=== PATIENT | male | born 1970 | race Caucasian/White ===

== ENCOUNTER 2024-04-20 20:22 | Inpatient (IN) | payer MEDICARE, SELFPAY ==
[2024-04-20 20:23] VITALS: BP 151/83; PULSE 71; RESP 16; TEMP 36.4; O2SAT 96; BMI 27.3
--- NOTE | 2024-04-20 20:25 | EKG12_ITS ---
Test Reason : PALPITATIONS Blood Pressure : / mmHG Vent. Rate : 140 BPM Atrial Rate : 208 BPM P-R Int : 000 ms QRS Dur : 088 ms QT Int : 268 ms P-R-T Axes : 000 009 152 degrees QTc Int : 409 ms Critical Test Result: High HR Atrial fibrillation with aberrant conduction ST & T wave abnormality, consider lateral ischemia Abnormal ECG Confirmed by Shiva Agudelo ([id number]), photo editor DELANEY HOPSON ([id number]) on 04/24/2024 9:09:33 AM Referred By: Confirmed By:Shiva Agudelo
--- NOTE | 2024-04-20 20:40 | RAD_ITS ---
STUDY: X-RAY CHEST REASON FOR EXAM: Male, 54 years old. palpitations TECHNIQUE: PA COMPARISON: None. FINDINGS: The lungs are clear and expanded. There is no demonstrated pleural abnormality. Normal size heart. Normal mediastinum and ricardo. Normal visualized pulmonary arteries. Normal visualized aortic arch and descending thoracic aorta. Normal visualized thoracic spine. Normal visualized ribs, clavicles, and shoulders. There is no demonstrated abnormality of the visualized soft tissue structures of the upper abdomen. RAD/Chest 1 View (Portable) IMPRESSION: Normal x-ray examination of the chest. Electronically Signed: Hector Dorado MD at 21:28 EDT ,
[2024-04-20 20:45] LABS: Absolute Lymphocyte Count 1.57 X10^3/uL (0.83-4.51); Absolute Neutrophil Count 3.5 X10^3/uL (2.0-7.7); Basophil# 0.07 X10^3/uL; Basophil% 1.1 % (0-1); Eosinophil# 0.13 X10^3/uL; Hematocrit 41.8 % (40-54); Lymphocyte # 1.57 X10^3/ul (0.83-4.51); Lymphocyte % 24.3 % (19-41); Mean Corp Hgb Conc 35.9 g/dL (32-36); Mean Corpuscular Hgb 33.2 pg (27.0-32.0); Mean Corpuscular Volume 92.5 fL (80-94); Monocyte# 1.13 X10^3/uL; Monocyte% 17.5 % (0-10); NRBC Flagged by Analyzer 0 % (0-5); Neutrophil # 3.54 X10^3/uL (2.7-7.7); Neutrophil % 54.8 % (47-70); POSITIVE COUNT YES; Platelet Count 58 K/mm3 (150-450); RBC Distribution Width CV 16.4 % (11.6-14.6); RBC Distribution Width SD 54.7 fl (35.1-43.9); Red Blood Count 4.52 M/mm3 (4.6-6.2); White Blood Count 6.5 K/mm3 (4.4-11.0)
[2024-04-20 20:47] LABS: Differential Indicated SCAN CRITERIA MET
[2024-04-20 21:04] LABS: Alcohol, Blood (Medical)-Serum < 3.0 mg/dL
[2024-04-20 21:15] LABS: AST(SGOT) 276 U/L (15-37); Alanine Aminotransfer ALT/SGPT 127 U/L (16-61); Albumin, Serum 3.7 g/dL (3.2-5.0); Alkaline Phosphatase 197 U/L (45-117); Anion Gap 11 (5-15); BUN 18 mg/dL (7-18); Bilirubin, Direct 2.21 mg/dL (0.00-0.30); Calcium,Total 9.6 mg/dL (8.5-10.1); Chloride 89 mmol/L (98-107); Creatinine, Serum 1.38 mg/dL (0.70-1.30); EST Glomerular Filtration Rate 57 mL/min (>60); Est Glom Filt Rate - Afr Amer 69 mL/min (>60); Estimated Creatinine Clearance 67.17 ml/min; Globulin 3.2 g/dL (2.2-4.2); Glucose 92 mg/dL (74-106); Potassium 2.4 mmol/L (3.5-5.1); Protein, Total 6.9 g/dL (6.4-8.2); Sodium Level 133 mmol/L (136-145); Troponin-I HS (w/2H Reflex) 27 pg/mL (3.0-78.0)
[2024-04-20 21:22] LABS: Differential Comment SCANNED
[2024-04-20 21:23] VITALS: BP 114/88; PULSE 102; RESP 20; O2SAT 95
--- NOTE | 2024-04-20 21:27 | EX.ED.DYSGE1 ---
HPI History of Present Illness Chief Complaint: Palpitations Narrative Narrative: 54-year-old male presenting with palpitations. Patient recently moved from [place] to [place]. Has been here about a month. He states he is a drinker and drinks about 2-4 large mikes hard lemonade's a day. He has not had a drink in 3 days. Today he noted that he has having palpitations. He does have a history of A-fib. Patient denies chest pain. He denies nausea or vomiting. He does state he has a history of DVTs and is interested in the ramp program. [facility] Medical History Alcohol abuse Osteoporosis Cirrhosis Smoker Irregular heart beat Atrial fibrillation Home Medications ?Medication ?Instructions ?Recorded ?Last Taken ?Type alpha lipoic acid 600 mg capsule 600 mg PO BID 04/20/24 Unknown History amiodarone 200 mg tablet 200 mg PO BID 04/20/24 Unknown History aspirin 81 mg tablet,delayed 81 mg PO DAILY 04/20/24 Unknown History release (Ecotrin Low Strength) ferrous sulfate 325 mg (65 mg 325 mg PO BID 04/20/24 Unknown History iron) tablet (FeroSul) lactulose 10 gram/15 mL oral 30 ml PO TID 04/20/24 Unknown History solution metoprolol tartrate 25 mg tablet 25 mg PO Q12H 04/20/24 Unknown History potassium chloride .Route 04/20/24 Unknown History potassium chloride 20 mEq 10 meq PO DAILY 04/20/24 Unknown History tablet,extended release (K-Tab) Allergy/AdvReac Type Severity Reaction Status Date / Time No Known Allergies Allergy Verified 04/20/24 20:23 Surgical History History of radiofrequency ablation procedure for cardiac arrhythmia ROS ROS ED Constitutional Constitutional ED: Denies chills, fever(s) or sweats Eyes Eyes: Denies blurry vision or change in vision ENT ENT ED: Denies ear pain or sore throat Cardiovascular Cardiovascular: Reports palpitations and racing heartbeat; Denies chest pain Respiratory/Chest Respiratory/Chest: Denies cough, dyspnea or sputum Gastrointestinal Gastrointestinal: Denies abdominal pain, constipation, diarrhea, nausea or vomiting Genitourinary Genitourinary ED: Denies dysuria, hematuria or urinary frequency Musculoskeletal Musculoskeletal: Denies arthralgias, myalgias or neck pain Integumentary Denies abscess, Abrasions or rash Neurologic Neurologic: Denies headache(s), paresthesias or weakness Psychiatric Psychiatric: Denies anxiety, depression, suicidal ideation or suicidal thoughts Endocrine Endocrinology: Denies polydipsia or polyuria EXAM Physical Exam Const Vital Signs: 04/20/24 20:23 04/20/24 21:09 04/20/24 21:09 Temperature 97.5 F L Temperature Source Temporal Pulse Rate 71 Respiratory Rate 16 Respiratory Effort Normal Blood Pressure 151/83 H Blood Pressure Mean 105 Pulse Ox 96 Oxygen Delivery Method Room Air Oxygen Flow Rate (L/min) 97 Positive well nourished General Appearance ED: Negative for pallor HEENT Reports moist mucous membranes Negative for trauma or tenderness Eyes PERRL and EOMs intact bilaterally Chest Wall inspection of chest normal Resp normal respiratory effort and clear to auscultation bilaterally Auscultation: Negative for rales, rhonchi or wheezes Cardio Rate: tachycardic Rhythm: abnormal rhythm irregularly irregular GI normal to inspection, nondistended, normoactive bowel sounds Neuro oriented x3 and CN's II-XII intact bilaterally Psych mental status grossly normal Skin no rashes or lesions noted and no wounds General Skin Exam: Negative for jaundice or pallor MDM MDM MDM Narrative Medical decision making narrative: Patient presenting with palpitations. He states he is trying to quit drinking alcohol. Has a history of DTs. He does want to detox in the hospital. He has had no alcohol in 3 days. History of cirrhosis. He also has a history of A-fib. Differential includes A-fib, a flutter, ACS, dehydration, anemia, electrolyte abnormalities, alcohol intoxication, alcohol withdrawal. Insert chest pain lab Lab Data Labs: Laboratory Results - last 24 hr 04/20/24 20:35 WBC 6.5 RBC 4.52 L Hgb 15.0 Hct 41.8 MCV 92.5 MCH 33.2 H MCHC 35.9 RDW Std Deviation 54.7 H RDW Coeff of Asher 16.4 H Plt Count 58 L MPV 11.0 Immature Gran % (Auto) 0.300 Neut % (Auto) 54.8 Lymph % (Auto) 24.3 [place] % (Auto) 17.5 H Eos % (Auto) 2.0 Baso % (Auto) 1.1 H Absolute Neuts (auto) 3.5 Absolute Lymphs (auto) 1.57 Nucleated RBC % 0 Differential Comment SCANNED Sodium 133 L Potassium 2.4 L* Chloride 89 L Carbon Dioxide 33.0 H Anion Gap 11 BUN 18 Creatinine 1.38 H Estim Creat Clear Calc 67.17 Est GFR (MDRD) Af Amer 69 Est GFR (MDRD) Non-Af 57 L BUN/Creatinine Ratio 13.0 Glucose 92 Calcium 9.6 Total Bilirubin 4.50 H Direct Bilirubin 2.21 H AST 276 H ALT 127 H Alkaline Phosphatase 197 H Troponin I High Sens 27 Total Protein 6.9 Albumin 3.7 Globulin 3.2 Ethyl Alcohol < 3.0 Discharge Plan Triage Chief Complaint: Palpitations ED Provider: Joaquín Faust Dx/Rx/DC Orders Prescriptions: No Action metoprolol tartrate 25 mg tablet 25 mg PO Q12H amiodarone 200 mg tablet 200 mg PO BID ferrous sulfate [FeroSul] 325 mg (65 mg iron) tablet 325 mg PO BID aspirin [Ecotrin Low Strength] 81 mg tablet,delayed release (DR/EC) 81 mg PO DAILY alpha lipoic acid 600 mg capsule 600 mg PO BID lactulose 10 gram/15 mL solution 30 ml PO TID potassium chloride .Route potassium chloride [K-Tab] 20 mEq tablet extended release 10 meq PO DAILY Primary Care Provider: NOT,DEFINED Referrals: NOT,DEFINED [Primary Care Provider] - Print Language: Icelandic
[2024-04-20] MEDS: dilTIAZem 25 MG/5 ML Vial 20 MG IV BOLUS (21:50)
[2024-04-20] MEDS: 0.9% Normal Saline (1000mL) 1,000 ML 999 ML IV (21:51)
[2024-04-20 21:54] LABS: Lipase 38 U/L (13-75); Magnesium 1.7 mg/dL (1.6-2.6)
[2024-04-20 22:00] VITALS: BP 113/79; PULSE 94; RESP 20; O2SAT 97
[2024-04-20 22:35] VITALS: BP 130/89; PULSE 103; RESP 24; TEMP 36.8; O2SAT 96
--- NOTE | 2024-04-20 22:36 | PCM.HP.STD ---
HPI - General General Date of Admission: 04/21/24 Date of Service: 04/20/24 Chief Complaint: Palpitations and Wanting EtOH Detox. HPI Narrative LUIS PATEL, is a 54 M with a past medical history of tobacco abuse, Chronic EtOH Abuse with patient drinking 2-4 large [employer] Hard Lemonade's daily; with subsequent cirrhosis, overweight; with BMI of 27.3 this admission, history of atrial fibrillation; with previous radiofrequency ablation x 3 on Amiodarone with Metoprolol, history of DVT's and osteoporosis who presents to [facility] ER complaining of palpitations and wanting help with EtOH Detox. Mr. Patel reports his symptoms began approximately 3 days prior to admission after his last alcoholic beverage with intermittent palpitations. He further explains he moved here recently from [place] to [place] about a month ago, apparently to be near his sister who lives in the area and now he would like help with alcohol detoxification since he was unable to wean himself down off of alcohol without professional help. He admits to tremors and hallucinations but he denies associated fever, chills, chest pain, nausea, vomiting, diaphoresis, diarrhea, recent antibiotics or constipation. He is interested in the RAMP program. In the ER he was noted to have electrocardiographic evidence of atrial flutter with rapid ventricular response of 140 to 150 bpm complicated by laboratory evidence of severe hypokalemia of 2.4 mmol/L present on admission compounded by alcohol withdrawal in the setting of chronic alcohol abuse; with subsequent cirrhosis and hyperbilirubinemia of 4.5 mg/dL (with direct bilirubin of 2.21 mg/dL) present on admission with elevated LFTs and he was then admitted to the PCU for ongoing care for stay that is expected to extend beyond 2 midnights. [facility] Medical History Alcohol abuse Osteoporosis Cirrhosis Smoker Irregular heart beat Atrial fibrillation Home Medications ?Medication ?Instructions ?Recorded ?Last Taken ?Type alpha lipoic acid 600 mg capsule 600 mg PO BID 04/20/24 Unknown History amiodarone 200 mg tablet 200 mg PO BID 04/20/24 Unknown History aspirin 81 mg tablet,delayed 81 mg PO DAILY 04/20/24 Unknown History release (Ecotrin Low Strength) ferrous sulfate 325 mg (65 mg 325 mg PO BID 04/20/24 Unknown History iron) tablet (FeroSul) lactulose 10 gram/15 mL oral 30 ml PO TID 04/20/24 Unknown History solution metoprolol tartrate 25 mg tablet 25 mg PO Q12H 04/20/24 Unknown History potassium chloride .Route 04/20/24 Unknown History potassium chloride 20 mEq 10 meq PO DAILY 04/20/24 Unknown History tablet,extended release (K-Tab) Allergy/AdvReac Type Severity Reaction Status Date / Time bee venom protein (honey Allergy Intermediate Swelling Verified 04/20/24 22:25 bee) (bee stings) Surgical History History of radiofrequency ablation procedure for cardiac arrhythmia Social History Smoking Status: Current every day smoker tobacco type: cigarettes ROS ROS Narrative Review of systems: General: Patient admits to fatigue and malaise but denies fever or chills. HENT: Denies headache, denies stuffy nose, denies sore throat EYES: Denies changes in vision or discharge from eyes. Resp: Denies cough, denies shortness of breath Cardiac: Patient admits to palpitations and heart racing but denies chest pain. GI: Denies abdominal pain, denies changes in bowel, denies nausea or vomiting. : Denies changes in urination Extremity: Denies swelling Musculoskeletal: Feels somewhat generally weak and unwell but denies arthralgias or myalgias. Neuro: Patient denies headache, paresthesias or focal neurologic weakness. Heme: Denies any bleeding or bruising Skin: Denies rashes Psychiatric: Patient admits to some hallucinations stating that the clock is moving [id number] on the wall. He denies suicidal or homicidal ideation. Endocrine: No polyuria, polydipsia or polyphagia. The rest of the 14 point ROS was negative except for positives in HPI. Vital Signs Vital Signs Vital Signs: 04/20/24 20:23 04/20/24 21:09 04/20/24 21:09 Temperature 97.5 F L Temperature Source Temporal Pulse Rate 71 Respiratory Rate 16 Respiratory Effort Normal Blood Pressure 151/83 H Blood Pressure Mean 105 Pulse Ox 96 Oxygen Delivery Method Room Air Oxygen Flow Rate (L/min) 97 04/20/24 21:23 04/20/24 22:00 Temperature Temperature Source Pulse Rate 102 H 94 Respiratory Rate 20 H 20 H Respiratory Effort Blood Pressure 114/88 H 113/79 Blood Pressure Mean 96 90 Pulse Ox 95 97 Oxygen Delivery Method Room Air Room Air Oxygen Flow Rate (L/min) Weight Weight: 201 lb 6.4 oz Body Mass Index (BMI) 27.3 Physical Exam Const alert, oriented x3 and average body habitus Constitutional Narrative: [id number] distress noted with tremor in upper extremities and claims of seeing the clock move [id number] on the wall consistent with hallucinations. General Appearance: cooperative HEENT normocephalic, head/scalp atraumatic and hearing grossly normal bilaterally HEENT Narrative: Mucous membranes dry. Eyes PERRL and EOMs intact bilaterally Neck no lymphadenopathy and supple Resp normal respiratory effort, no retractions, no use of accessory muscles and clear to auscultation bilaterally Cardio Cardio Narrative: Irregularly irregular at approximately 100 to 110 bpm. GI normal to inspection, nondistended, normoactive bowel sounds, soft to palpation, non-tender and non-distended Extremity normal to inspection and full ROM Skin Skin Narrative: Patient has no evidence of jaundice, rash or abscess. Neuro oriented x3, CN's II-XII intact bilaterally, moves all extremities and no focal motor deficits Sensorium / Orientation: awake, alert, oriented to person, oriented to place and oriented to time Speech: speech normal Psych Mood & Affect: anxious Results Medical Records Data Attestation: I reviewed the patient's medical records Lab / Micro Data Attestation: I reviewed the patient's lab results. 04/20/24 20:35 04/20/24 20:35 Labs: Laboratory Results - last 24 hr 04/20/24 20:35: WBC 6.5, RBC 4.52 L, Hgb 15.0, Hct 41.8, MCV 92.5, MCH 33.2 H, MCHC 35.9, RDW Std Deviation 54.7 H, RDW Coeff of Asher 16.4 H, Plt Count 58 L, MPV 11.0, Immature Gran % (Auto) 0.300, Neut % (Auto) 54.8, Lymph % (Auto) 24.3, Rich % (Auto) 17.5 H, Eos % (Auto) 2.0, Baso % (Auto) 1.1 H, Absolute Neuts (auto) 3.5, Absolute Lymphs (auto) 1.57, Nucleated RBC % 0, Differential Comment SCANNED, Sodium 133 L, Potassium 2.4 L*, Chloride 89 L, Carbon Dioxide 33.0 H, Anion Gap 11, BUN 18, Creatinine 1.38 H, Estim Creat Clear Calc 67.17, Est GFR (MDRD) Af Amer 69, Est GFR (MDRD) Non-Af 57 L, BUN/Creatinine Ratio 13.0, Glucose 92, Calcium 9.6, Total Bilirubin 4.50 H, Direct Bilirubin 2.21 H, AST 276 H, ALT 127 H, Alkaline Phosphatase 197 H, Troponin I High Sens 27, Total Protein 6.9, Albumin 3.7, Globulin 3.2, Ethyl Alcohol < 3.0 04/20/24 21:26: Magnesium 1.7, Lipase 38 Imaging [facility] Imaging Services [address] [place] [address] Abdomen/Pelvis W IV Cont ONLY MR#: [id number] Acct: [id number] Name: LUIS PATEL Rep #: [id number] : 1970 M 54 From: Luis Bryant MD PCP: Care Physician,No Primary Status: ADM IN Study: Abdomen/Pelvis W IV Cont ONLY Date of Exam: 04/20/24 Exam# [id number] Ordering Dr: Joaquín Faust DO INDICATION: transamintis EXAMINATION: CT ABDOMEN AND PELVIS with CONTRAST - CT Abdomen And Pelvis W/ Contrast Injection TECHNIQUE: Multiple axial images were obtained of the abdomen and pelvis following administration of IV contrast. Planar reconstructions obtained. A radiation dose optimization technique was used for this scan. RADIATION DOSAGE (If Supplied By Facility): CTDIvol = ( 15.83 ) mGy, DLP = ( 110.81 ) mGycm IV Contrast dosage and agent: None. Oral contrast: None. COMPARISON: No pertinent previous studies for comparison.. FINDINGS: LOWER THORAX: Lungs are clear. Minimal atelectasis at lung bases. No consolidation, no effusion. Cardiac contour is normal. No pericardial effusion. No coronary vascular calcifications.. HEPATOBILIARY: Liver: Liver has a lobulated contour there is diffuse hepatic steatosis. No hepatic masses. There is a recanalization of the umbilical vein which is prominent consistent with sequelae of portal venous hypertension and portosystemic shunting, with anastomosis with the RIGHT inferior epigastric vein... Gallbladder: Gallbladder is mildly distended, calcifications are present. No ductal dilatation. Pancreas: Pancreas is normal size configuration and density. No mass is noted. Spleen: The spleen is homogeneous and normal in size. . BOWEL: Stomach: The stomach is normal in size configuration, no evidence of focal masses, abnormal calcifications. No hiatal hernia noted. Bowel: Small and large have normal configuration, no masses or bowel obstruction noted. Moderate amount retained stool within the colon. No evidence of diverticulitis. Appendix: The visualized appendix has normal appearance.: GENITOURINARY: Adrenals: Both adrenal glands are normal in size. Kidneys: Kidneys appear symmetric in size. No calcifications are seen in the collecting system. There is no hydronephrosis or surrounding fluid. Bladder: Normal Pelvic organs: The visualized pelvic organs are normal in size and configuration. No masses or adenopathy noted. RETROPERITONEUM: There is normal appearance of the abdominal aorta and inferior vena cava. LYMPH NODES: No evidence of retroperitoneal or para-aortic masses fluid collections or adenopathy. PERITONEAL CAVITY: No ascites noted ANTERIOR ABDOMINAL WALL: Normal, no hernia identified. BONES AND SOFT TISSUES: The skeleton shows no evidence for fractures or destructive lesions. OTHER: None CT/Abdomen/Pelvis W IV Cont ONLY IMPRESSION: 1. Cirrhotic appearance of the liver, diffuse hepatic steatosis, and evidence of portal venous hypertension and portosystemic shunting via the umbilical vein and the inferior epigastric vein on the RIGHT. 2. No evidence of hepatic masses or ductal dilatation. 3. Cholelithiasis. 4. Moderate amount retained stool in the colon, no evidence of masses bowel obstruction. No evidence diverticulitis or appendicitis. 5. No evidence of renal calcification or obstructive uropathy.. Electronically Signed: Luis Bryant MD at 23:58 EDT , CC: Dr. Joaquín Faust, ; No Primary Care Physician ~ Steward/Stewardess Third Class: Signed [facility] Imaging Services [address] [place] [address] [id number] Chest 1 View (Portable) MR#: [id number] Acct: [id number] Name: LUIS PATEL Rep #: [id number] : 1970 M 54 From: Hector Dorado MD PCP: Care Physician,No Primary Status: ADM IN Study: Chest 1 View (Portable) Date of Exam: 04/20/24 Exam# [id number] Ordering Dr: Joaquín Faust DO STUDY: X-RAY CHEST REASON FOR EXAM: Male, 54 years old. palpitations TECHNIQUE: PA COMPARISON: None. FINDINGS: The lungs are clear and expanded. There is no demonstrated pleural abnormality. Normal size heart. Normal mediastinum and ricardo. Normal visualized pulmonary arteries. Normal visualized aortic arch and descending thoracic aorta. Normal visualized thoracic spine. Normal visualized ribs, clavicles, and shoulders. There is no demonstrated abnormality of the visualized soft tissue structures of the upper abdomen. RAD/Chest 1 View (Portable) IMPRESSION: Normal x-ray examination of the chest. Electronically Signed: Hector Dorado MD at 21:28 EDT Reading Location ID and State: [address] [place] [address] Tel , Service support , CC: Dr. Joaquín Faust, DO; No Primary Care Physician ~ Steward/Stewardess Third Class: Signed Assessment & Plan Assessment/Plan (1) Alcohol withdrawal: QUALIFIERS: Complication of substance-induced condition: with perceptual disturbance Qualified Code(s): F10.932 - Alcohol use, unspecified with withdrawal with perceptual disturbance (2) Chronic alcohol abuse: (3) Paroxysmal atrial flutter: (4) Hypokalemia: (5) Alcoholic cirrhosis: QUALIFIERS: Ascites presence: without ascites Qualified Code(s): K70.30 - Alcoholic cirrhosis of liver without ascites (6) Overweight (BMI 25.0-29.9): (7) History of deep vein thrombosis: PLAN: Plan 1. Impending EtOH Withdrawal in the setting of Chronic EtOH Abuse with known cirrhosis - Admit to ICU for treatment under the EtOH Detoxification protocol primarily consisting of Phenobarbital taper. EtOH Cessation will be strongly encouraged. Check CT scan of the abdomen and pelvis with Hyperbilirubinemia of 4.5 mg/dL and elevated LFT's present on admission. Check PT/INR to evaluate liver synthetic function of clotting factors. Finally, we will consult Dr. Patrick of gastroenterology to see this patient on-rounds in the AM for further recommendations regarding optimizing his care with help appreciated in advance. 2. Severe Hypokalemia of 2.4 mmol/L present on admission complicating #1 - Give supplemental KCl and then recheck level in the AM to ensure improvement. 3. History of PAF; s/p radiofrequency ablation x 3 (and not on anticoagulation) with EKG positive for Atrial Flutter with RVR @ ~140-150 bpm POA compounding #1 & #2 - Continue Amiodarone and Metoprolol as previous. Continue IV Diltiazem to keep HR < 100 bpm. Check TSH. 4. Tobacco abuse compounding adding to the pathology of #1 - #3 - Tobacco cessation will be strongly encouraged with Nicotine patch offered to control cravings. 5. Overweight; with BMI of 27.3 this admission - Weight loss will be recommended. 6. Osteoporosis - Stable. 7. History of DVT's - Noted, with patient started on full dose Lovenox for #4. 8. DVT prophylaxis - Give full-dose Lovenox for #4. Total time: Approximately 75 minutes. Charges/Coding Visit Charges Inpatient E&M: 97226 Init Hosp L3
[2024-04-20 22:40] LABS: Reflex Troponin-HS? (from REC) Y
--- NOTE | 2024-04-20 22:40 | CT_ITS ---
INDICATION: transamintis EXAMINATION: CT ABDOMEN AND PELVIS with CONTRAST - CT Abdomen And Pelvis W/ Contrast Injection TECHNIQUE: Multiple axial images were obtained of the abdomen and pelvis following administration of IV contrast. Planar reconstructions obtained. A radiation dose optimization technique was used for this scan. RADIATION DOSAGE (If Supplied By Facility): CTDIvol = ( 15.83 ) mGy, DLP = ( 110.81 ) mGycm IV Contrast dosage and agent: None. Oral contrast: None. COMPARISON: No pertinent previous studies for comparison.. FINDINGS: LOWER THORAX: Lungs are clear. Minimal atelectasis at lung bases. No consolidation, no effusion. Cardiac contour is normal. No pericardial effusion. No coronary vascular calcifications.. HEPATOBILIARY: Liver: Liver has a lobulated contour there is diffuse hepatic steatosis. No hepatic masses. There is a recanalization of the umbilical vein which is prominent consistent with sequelae of portal venous hypertension and portosystemic shunting, with anastomosis with the RIGHT inferior epigastric vein... Gallbladder: Gallbladder is mildly distended, calcifications are present. No ductal dilatation. Pancreas: Pancreas is normal size configuration and density. No mass is noted. Spleen: The spleen is homogeneous and normal in size. . BOWEL: Stomach: The stomach is normal in size configuration, no evidence of focal masses, abnormal calcifications. No hiatal hernia noted. Bowel: Small and large have normal configuration, no masses or bowel obstruction noted. Moderate amount retained stool within the colon. No evidence of diverticulitis. Appendix: The visualized appendix has normal appearance.: GENITOURINARY: Adrenals: Both adrenal glands are normal in size. Kidneys: Kidneys appear symmetric in size. No calcifications are seen in the collecting system. There is no hydronephrosis or surrounding fluid. Bladder: Normal Pelvic organs: The visualized pelvic organs are normal in size and configuration. No masses or adenopathy noted. RETROPERITONEUM: There is normal appearance of the abdominal aorta and inferior vena cava. LYMPH NODES: No evidence of retroperitoneal or para-aortic masses fluid collections or adenopathy. PERITONEAL CAVITY: No ascites noted ANTERIOR ABDOMINAL WALL: Normal, no hernia identified. BONES AND SOFT TISSUES: The skeleton shows no evidence for fractures or destructive lesions. OTHER: None CT/Abdomen/Pelvis W IV Cont ONLY IMPRESSION: 1. Cirrhotic appearance of the liver, diffuse hepatic steatosis, and evidence of portal venous hypertension and portosystemic shunting via the umbilical vein and the inferior epigastric vein on the RIGHT. 2. No evidence of hepatic masses or ductal dilatation. 3. Cholelithiasis. 4. Moderate amount retained stool in the colon, no evidence of masses bowel obstruction. No evidence diverticulitis or appendicitis. 5. No evidence of renal calcification or obstructive uropathy.. Electronically Signed: Chema Bryant MD at 23:58 EDT ,
[2024-04-20 23:00] VITALS: BP 131/88; PULSE 103; RESP 21; TEMP 36.9; O2SAT 99
[2024-04-20] MEDS: Potassium Chloride Oral Tablet 20 MEQ 60 MEQ PO (23:09)
[2024-04-20] MEDS: LORazepam 2 MG/ML Syringe IV (23:12)
[2024-04-20] MEDS: Potassium Chloride 10mEq/100mL 10 MEQ/100 ML IV.SOLN. 100 MEQ IV BOLUS (23:13)
[2024-04-20 23:14] LABS: International Normalized Ratio 1.4; Prothrombin Time (Protime)PT. 17.1 SECONDS (11.7-14.9)
[2024-04-20 23:25] LABS: Phosphorus 4.3 mg/dL (2.5-4.9)
[2024-04-20] MEDS: Phenobarbital 32.4 MG Tablet 97.2 MG PO (23:38)
[2024-04-21] VITALS (30 sets, daily range): BP systolic 96–143; BP diastolic 51–114; PULSE 77–107; RESP 12–26; TEMP 36.1–36.9; O2SAT 93–100; BMI 28.9
[2024-04-21 00:12] LABS: Magnesium 1.5 mg/dL (1.6-2.6); Troponin-I HS 24 pg/mL (3.0-78.0)
[2024-04-21] MEDS: Potassium Chloride 10mEq/100mL 10 MEQ/100 ML IV.SOLN. 100 MEQ IV BOLUS ×3 (00:37→02:41)
[2024-04-21] MEDS: Metoprolol Tartrate 25 MG Tablet PO ×3 (01:43→21:18)
[2024-04-21] MEDS: Amiodarone 200 MG Tablet PO ×3 (01:44→21:19)
[2024-04-21] MEDS: Gabapentin 300 MG Capsule PO (01:44)
[2024-04-21] MEDS: traZODone 100 MG Tablet PO (01:45)
[2024-04-21] MEDS: Phenobarbital 32.4 MG Tablet 97.2 MG PO (03:39)
[2024-04-21] MEDS: dexMEDEtomidine 400 MCG in 0.9% Normal Saline (100mL Bag) 96 ML 12.1 MCG CONT INF (04:32)
[2024-04-21] MEDS: Magnesium Sulfate 2 GM in Dextrose 5%-Water (100mL Bag) 100 ML IV (05:46)
[2024-04-21 06:06] LABS: Absolute Lymphocyte Count 0.73 X10^3/uL (0.83-4.51); Absolute Neutrophil Count 1.1 X10^3/uL (2.0-7.7); Basophil# 0.04 X10^3/uL; Basophil% 1.6 % (0-1); Eosinophil# 0.11 X10^3/uL; Eosinophils% 4.3 % (0-5); Hematocrit 35.5 % (40-54); Hemoglobin 12.5 g/dL (13.0-16.5); Lymphocyte # 0.73 X10^3/ul (0.83-4.51); Lymphocyte % 28.9 % (19-41); Mean Corp Hgb Conc 35.2 g/dL (32-36); Mean Corpuscular Hgb 33.5 pg (27.0-32.0); Mean Corpuscular Volume 95.2 fL (80-94); Mean Platelet Vol. 13.4 fl (6.2-12.0); Monocyte# 0.53 X10^3/uL; Monocyte% 20.9 % (0-10); NRBC Flagged by Analyzer 0 % (0-5); Neutrophil # 1.11 X10^3/uL (2.7-7.7); Neutrophil % 43.9 % (47-70); POSITIVE COUNT YES; RBC Distribution Width CV 16.7 % (11.6-14.6); Red Blood Count 3.73 M/mm3 (4.6-6.2); White Blood Count 2.5 K/mm3 (4.4-11.0)
[2024-04-21 06:16] LABS: Differential Indicated SCAN CRITERIA MET; Platelet Count 30 K/mm3 (150-450)
[2024-04-21 06:25] LABS: ALB/GLOB Ratio 1.2 RATIO (0.9-2.4); AST(SGOT) 210 U/L (15-37); Alanine Aminotransfer ALT/SGPT 97 U/L (16-61); Albumin, Serum 2.9 g/dL (3.2-5.0); Alkaline Phosphatase 134 U/L (45-117); Anion Gap 7 (5-15); BUN 15 mg/dL (7-18); BUN/Creat Ratio 13.3 RATIO (10-20); Calcium,Total 8.3 mg/dL (8.5-10.1); Chloride 100 mmol/L (98-107); Creatinine, Serum 1.13 mg/dL (0.70-1.30); EST Glomerular Filtration Rate 72 mL/min (>60); Est Glom Filt Rate - Afr Amer 87 mL/min (>60); Estimated Creatinine Clearance 90.14 ml/min; Globulin 2.5 g/dL (2.2-4.2); Glucose 99 mg/dL (74-106); Potassium 3.5 mmol/L (3.5-5.1); Protein, Total 5.4 g/dL (6.4-8.2); Sodium Level 138 mmol/L (136-145)
[2024-04-21 07:04] LABS: Platelet Estimate MKD DEC (ADEQ); Stomatocyte RARE
--- NOTE | 2024-04-21 07:09 | PN.HOSP_ITS ---
Reason for Visit Reason for Visit: Diagnoses Overweight (04/21/24) Hypokalemia (04/21/24) Alcohol abuse, uncomplicated (04/21/24) Alcohol use, unspecified with withdrawal with perceptual disturbance (04/21/24) Alcohol use, unspecified with withdrawal, unspecified (04/21/24) Unspecified atrial flutter (04/21/24) Alcoholic cirrhosis of liver without ascites (04/21/24) Personal history of other venous thrombosis and embolism (04/21/24) Subjective Subjective Patient is a 54-year-old gentleman with history of chronic alcohol dependence admitted with acute alcohol withdrawal Objective Data Objective Data Vital Signs: Vital Signs Temp Pulse Resp BP Pulse Ox O2 Del Method O2 Flow Rate 97.6 F L 99 12 133/101 H 99 Nasal Cannula 2 04/21/24 05:00 04/21/24 07:00 04/21/24 07:00 04/21/24 07:00 04/21/24 07:00 04/21/24 07:00 04/21/24 07:00 Oxygen Flow Rate (L/min) 2 Oxygen Delivery Method Nasal Cannula Weight: 96.8 kg Body Mass Index (BMI) 28.9 Intake & Output: Intake and Output for Last 24 Hours 04/19/24 04/20/24 04/21/24 23:59 23:59 23:59 Intake Total 1455.23 / 1455.23 Output Total 0 / 0 Balance 1455.23 / 1455.23 Lab / Micro Data 04/21/24 05:55 04/21/24 05:55 Labs: Laboratory Results - last 24 hr 04/20/24 20:35: WBC 6.5, RBC 4.52 L, Hgb 15.0, Hct 41.8, MCV 92.5, MCH 33.2 H, MCHC 35.9, RDW Std Deviation 54.7 H, RDW Coeff of Asher 16.4 H, Plt Count 58 L, MPV 11.0, Immature Gran % (Auto) 0.300, Neut % (Auto) 54.8, Lymph % (Auto) 24.3, [place] % (Auto) 17.5 H, Eos % (Auto) 2.0, Baso % (Auto) 1.1 H, Absolute Neuts (auto) 3.5, Absolute Lymphs (auto) 1.57, Nucleated RBC % 0, Differential Comment SCANNED, Sodium 133 L, Potassium 2.4 L*, Chloride 89 L, Carbon Dioxide 33.0 H, Anion Gap 11, BUN 18, Creatinine 1.38 H, Estim Creat Clear Calc 67.17, Est GFR (MDRD) Af Amer 69, Est GFR (MDRD) Non-Af 57 L, BUN/Creatinine Ratio 13.0, Glucose 92, Calcium 9.6, Total Bilirubin 4.50 H, Direct Bilirubin 2.21 H, AST 276 H, ALT 127 H, Alkaline Phosphatase 197 H, Troponin I High Sens 27, Total Protein 6.9, Albumin 3.7, Globulin 3.2, Ethyl Alcohol < 3.0 04/20/24 21:26: PT 17.1 H, INR 1.4, Phosphorus 4.3, Magnesium 1.7, Lipase 38 04/20/24 23:44: Magnesium 1.5 L, Troponin I High Sens 24 04/21/24 05:55: WBC 2.5 L, RBC 3.73 L, Hgb 12.5 L, Hct 35.5 L, MCV 95.2 H, MCH 33.5 H, MCHC 35.2, RDW Std Deviation 58.0 H, RDW Coeff of Asher 16.7 H, Plt Count 30 L*, MPV 13.4 H, Immature Gran % (Auto) 0.400, Neut % (Auto) 43.9 L, Lymph % (Auto) 28.9, [place] % (Auto) 20.9 H, Eos % (Auto) 4.3, Baso % (Auto) 1.6 H, A bsolute Neuts (auto) 1.1 L, Absolute Lymphs (auto) 0.73 L, Nucleated RBC % 0, Diff Path Review February foll, Platelet Estimate MKD DEC, Stomatocytes RARE, Sodium 138, Potassium 3.5, Chloride 100, Carbon Dioxide 31.0, Anion Gap 7, BUN 15, Creatinine 1.13, Estim Creat Clear Calc 90.14, Est GFR (MDRD) Af Amer 87, Est GFR (MDRD) Non-Af 72, BUN/Creatinine Ratio 13.3, Glucose 99, Calcium 8.3 L, T otal Bilirubin 3.70 H, AST 210 H, ALT 97 H, Alkaline Phosphatase 134 H, Total Protein 5.4 L, Albumin 2.9 L, Globulin 2.5, Albumin/Globulin Ratio 1.2 Radiography Diagnostic Testing: Radiology Impression Chest X-Ray 04/20/24 20:40 IMPRESSION: Normal x-ray examination of the chest. Electronically Signed: Hector Dorado MD at 21:28 EDT , Abdomen/Pelvis CT 04/20/24 22:40 IMPRESSION: 1. Cirrhotic appearance of the liver, diffuse hepatic steatosis, and evidence of portal venous hypertension and portosystemic shunting via the umbilical vein and the inferior epigastric vein on the RIGHT. 2. No evidence of hepatic masses or ductal dilatation. 3. Cholelithiasis. 4. Moderate amount retained stool in the colon, no evidence of masses bowel obstruction. No evidence diverticulitis or appendicitis. 5. No evidence of renal calcification or obstructive uropathy.. Electronically Signed: Chema Bryant MD at 23:58 EDT , Physical Exam Narrative GENERAL: Sedated with Precedex HEENT: Atraumatic; normocephalic EYES; Anicteric, Normal Conjunctiva NECK; supple, normal thyroid, RESPIRATORY: Diminished to auscultation CARDIOVASCULAR: Regular S1-S2 GI: soft, normoactive bowel sounds, : No Renal angle tenderness; EXTREMITIES: No edema, no clubbing, MUSCULOSKELETAL: no muscle wasting NEURO: no lateralizing signs. SKIN: No Rash PSYCH; sedated with Precedex Assessment & Plan Assessment/Plan (1) Alcohol withdrawal: QUALIFIERS: Complication of substance-induced condition: with perceptual disturbance Qualified Code(s): F10.932 - Alcohol use, unspecified with withdrawal with perceptual disturbance PLAN: Plan Patient is a 54-year-old gentleman with history of chronic alcohol dependence admitted with acute alcohol withdrawal 1. Acute alcohol withdrawal - Patient has been admitted intensive care unit started on Precedex drip adjuvant medications including gabapentin, Bentyl, hydroxyzine and clonidine as needed for alcohol withdrawal symptoms. Patient was also placed on thiamine and folic acidConsultation placed to 180 counseling services 2. Hypokalemia ? Corrected per protocol 3. Paroxysmal A-fib ? Status post radiofrequency ablation. Patient is on amiodarone and metoprolol, continued 4. Acute transaminitis ? Patient picture consistent with alcoholic hepatitis will monitor with daily LFTs 5.Thrombocytopenia ? Suspected to be secondary to patient cirrhosis of the liver as well as chronic alcohol use monitoring with daily CBC with differential. No indication for platelet transfusion at this point 6. History of previous DVT 7. Tobacco dependence - Counseled on cessation, offered nicotine patch for tobacco cravings 8. DVT prophylaxis ? Chemoprophylaxis contraindicated given patient low platelet count Time spent in the patient's overall evaluation,decision-making process, review of diagnostic data, adjustment of management, discussion with other providers, nursing nursing and ancillary staff involved in patient's care documentation, 52 Minutes Charges/Coding Visit Charges Inpatient E&M: 85522 [facility] Hosp L3
[2024-04-21] MEDS: dexMEDEtomidine 1,000 MCG in 0.9% Normal Saline (250mL Bag) 240 ML 29 MCG CONT INF ×4 (07:23→22:55)
[2024-04-21] MEDS: Phenobarbital Sodium 130 MG/ML Vial 100 MG IV ×3 (07:40→21:34)
[2024-04-21] MEDS: 0.9% Normal Saline (250mL Bag) 250 ML 15 ML IV (07:56)
[2024-04-21] MEDS: KCL 20MEQ in D5.45NS 20 MEQ/1,000 ML IV.SOLN. 150 MEQ IV ×3 (08:37→20:48)
[2024-04-21 10:12] LABS: Thyroid Stim Hormone (TSH) 1.46 uIU/mL (0.358-3.74)
--- NOTE | 2024-04-21 11:05 | ADDICTION ---
clinician was advised that client is sedated and would not be able to be alert and answer questions. clinician will follow up with client on 04/22/24.
[2024-04-21 11:49] LABS: Pathologist Review Reviewed
[2024-04-21] MEDS: Potassium Chloride Oral Tablet 20 MEQ 40 MEQ PO (13:39)
[2024-04-21] MEDS: 0.9% Saline Lock 10 ML Syringe IV (14:16)
--- NOTE | 2024-04-21 15:41 | EKG12_ITS ---
Test Reason : CONVERTED Blood Pressure : / mmHG Vent. Rate : 102 BPM Atrial Rate : 102 BPM P-R Int : 166 ms QRS Dur : 098 ms QT Int : 390 ms P-R-T Axes : 076 -03 089 degrees QTc Int : 508 ms Atypical A-flutter with 2:1 conduction Nonspecific T wave abnormality Abnormal ECG Confirmed by Shiva Agudelo ([id number]), video editor DELANEY HOPSON ([id number]) on 04/28/2024 8:06:40 AM Referred By: LISA Confirmed By:Shiva Agudelo
--- NOTE | 2024-04-21 15:58 | NURSING ---
converted to sr-st hr 102 ekg complete , Dr Ly informed
--- NOTE | 2024-04-21 16:20 | EX.PCM.CON.G ---
HPI Consult Data Date of Consult: 04/21/24 HPI Narrative Reason for Consultation: Cirrhosis HPI Narrative: LUIS DU, is a 54 M who presents with auto mental status to the emergency room yesterday on 04/20/2024. He has a history of chronic alcohol abuse resolving and alcohol-induced cirrhosis. Is not known if he has any history of hepatitis C. Patient Recently moved here recently from [place] to [place] about a month ago, apparently to be near his sister who lives in the area and now he would like help with alcohol detoxification since he was unable to wean himself down off of alcohol without professional help. Due to encephalopathy at this time I am unable to get a proper history. As per the chart he admits to tremors and hallucinations but he denies associated fever, chills, chest pain, nausea, vomiting, diaphoresis, diarrhea, recent antibiotics or constipation. In the ER he was noted to have electrocardiographic evidence of atrial flutter with rapid ventricular response of 140 to 150 bpm complicated by laboratory evidence of severe hypokalemia of 2.4 mmol/L present on admission compounded by alcohol withdrawal in the setting of chronic alcohol abuse; with subsequent cirrhosis and hyperbilirubinemia of 4.5 mg/dL (with direct bilirubin of 2.21 mg/dL) present on admission with elevated LFTs. He was sent to the ICU for further workup. Currently is on Precedex for alcohol withdrawal. [facility] Medical History Alcohol abuse Osteoporosis Cirrhosis Smoker Irregular heart beat Atrial fibrillation Home Medications ?Medication ?Instructions ?Recorded ?Last Taken ?Type alpha lipoic acid 600 mg capsule 600 mg PO BID 04/20/24 Unknown History amiodarone 200 mg tablet 200 mg PO BID 04/20/24 Unknown History aspirin 81 mg tablet,delayed 81 mg PO DAILY 04/20/24 Unknown History release (Ecotrin Low Strength) ferrous sulfate 325 mg (65 mg 325 mg PO BID 04/20/24 Unknown History iron) tablet (FeroSul) lactulose 10 gram/15 mL oral 30 ml PO TID 04/20/24 Unknown History solution metoprolol tartrate 25 mg tablet 25 mg PO Q12H 04/20/24 Unknown History potassium chloride .Route 04/20/24 Unknown History potassium chloride 20 mEq 10 meq PO DAILY 04/20/24 Unknown History tablet,extended release (K-Tab) Allergy/AdvReac Type Severity Reaction Status Date / Time bee venom protein (honey Allergy Intermediate Swelling Verified 04/20/24 22:25 bee) (bee stings) Surgical History History of radiofrequency ablation procedure for cardiac arrhythmia Social History Smoking Status: Current every day smoker tobacco type: cigarettes ROS ROS Narrative Review of systems: General: Patient admits to fatigue and malaise but denies fever or chills. HENT: Denies headache, denies stuffy nose, denies sore throat EYES: Denies changes in vision or discharge from eyes. Resp: Denies cough, denies shortness of breath Cardiac: Patient admits to palpitations and heart racing but denies chest pain. GI: Denies abdominal pain, denies changes in bowel, denies nausea or vomiting. : Denies changes in urination Extremity: Denies swelling Musculoskeletal: Feels somewhat generally weak and unwell but denies arthralgias or myalgias. Neuro: Patient denies headache, paresthesias or focal neurologic weakness. Heme: Denies any bleeding or bruising Skin: Denies rashes Psychiatric: Patient admits to some hallucinations stating that the clock is moving [id number] on the wall. He denies suicidal or homicidal ideation. Endocrine: No polyuria, polydipsia or polyphagia. The rest of the 14 point ROS was negative except for positives in HPI. Physical Exam Narrative GENERAL: Sedated with Precedex HEENT: Atraumatic; normocephalic EYES; Anicteric, Normal Conjunctiva NECK; supple, normal thyroid, RESPIRATORY: Diminished to auscultation CARDIOVASCULAR: Regular S1-S2 GI: soft, normoactive bowel sounds, : No Renal angle tenderness; EXTREMITIES: No edema, no clubbing, MUSCULOSKELETAL: no muscle wasting NEURO: no lateralizing signs. SKIN: No Rash PSYCH; sedated with Precedex Lab / Micro Data 04/21/24 05:55 04/21/24 05:55 Labs: Laboratory Results - last 24 hr 04/20/24 20:35: WBC 6.5, RBC 4.52 L, Hgb 15.0, Hct 41.8, MCV 92.5, MCH 33.2 H, MCHC 35.9, RDW Std Deviation 54.7 H, RDW Coeff of Asher 16.4 H, Plt Count 58 L, MPV 11.0, Immature Gran % (Auto) 0.300, Neut % (Auto) 54.8, Lymph % (Auto) 24.3, [place] % (Auto) 17.5 H, Eos % (Auto) 2.0, Baso % (Auto) 1.1 H, Absolute Neuts (auto) 3.5, Absolute Lymphs (auto) 1.57, Nucleated RBC % 0, Differential Comment SCANNED, Sodium 133 L, Potassium 2.4 L*, Chloride 89 L, Carbon Dioxide 33.0 H, Anion Gap 11, BUN 18, Creatinine 1.38 H, Estim Creat Clear Calc 67.17, Est GFR (MDRD) Af Amer 69, Est GFR (MDRD) Non-Af 57 L, BUN/Creatinine Ratio 13.0, Glucose 92, Calcium 9.6, Total Bilirubin 4.50 H, Direct Bilirubin 2.21 H, AST 276 H, ALT 127 H, Alkaline Phosphatase 197 H, Troponin I High Sens 27, Total Protein 6.9, Albumin 3.7, Globulin 3.2, Ethyl Alcohol < 3.0 04/20/24 21:26: PT 17.1 H, INR 1.4, Phosphorus 4.3, Magnesium 1.7, Lipase 38 04/20/24 23:44: Magnesium 1.5 L, Troponin I High Sens 24 04/21/24 05:55: WBC 2.5 L, RBC 3.73 L, Hgb 12.5 L, Hct 35.5 L, MCV 95.2 H, MCH 33.5 H, MCHC 35.2, RDW Std Deviation 58.0 H, RDW Coeff of Asher 16.7 H, Plt Count 30 L*, MPV 13.4 H, Immature Gran % (Auto) 0.400, Neut % (Auto) 43.9 L, Lymph % (Auto) 28.9, [place] % (Auto) 20.9 H, Eos % (Auto) 4.3, Baso % (Auto) 1.6 H, Absolute Neuts (auto) 1.1 L, Absolute Lymphs (auto) 0.73 L, Nucleated RBC % 0, Diff Path Review Reviewed, Platelet Estimate MKD DEC, Stomatocytes RARE, Sodium 138, Potassium 3.5, Chloride 100, Carbon Dioxide 31.0, Anion Gap 7, BUN 15, Creatinine 1.13, Estim Creat Clear Calc 90.14, Est GFR (MDRD) Af Amer 87, Est GFR (MDRD) Non-Af 72, BUN/Creatinine Ratio 13.3, Glucose 99, Calcium 8.3 L, Total Bilirubin 3.70 H, AST 210 H, ALT 97 H, Alkaline Phosphatase 134 H, Total Protein 5.4 L, Albumin 2.9 L, Globulin 2.5, Albumin/Globulin Ratio 1.2, TSH 1.46 Imaging Radiology Impression Chest X-Ray 04/20/24 20:40 IMPRESSION: Normal x-ray examination of the chest. Electronically Signed: Hector Dorado MD at 21:28 EDT , Abdomen/Pelvis CT 04/20/24 22:40 IMPRESSION: 1. Cirrhotic appearance of the liver, diffuse hepatic steatosis, and evidence of portal venous hypertension and portosystemic shunting via the umbilical vein and the inferior epigastric vein on the RIGHT. 2. No evidence of hepatic masses or ductal dilatation. 3. Cholelithiasis. 4. Moderate amount retained stool in the colon, no evidence of masses bowel obstruction. No evidence diverticulitis or appendicitis. 5. No evidence of renal calcification or obstructive uropathy.. Electronically Signed: Luis Bryant MD at 23:58 EDT , Assessment & Plan Assessment/Plan (1) Alcoholic cirrhosis: QUALIFIERS: Ascites presence: without ascites Qualified Code(s): K70.30 - Alcoholic cirrhosis of liver without ascites PLAN: 54 gentleman with past medical history of alcoholism resulting in alcoholic cirrhosis most likely. Currently at this time is not able to give a good history. As per nurse he has been sleeping on and off today. He does not seem to be experiencing any complications of cirrhosis at this time such as ascites, GI bleeding, jaundice. I cannot assess for encephalopathy at this time. Recommendations: -Check for viral hepatitis -Check for autoimmune hepatitis -Check for hemochromatosis His current MELD is 22 with INR of 1.4, PT 17.1. He does not have a significant acidosis on his biochemical analysis. He does have pancytopenia consistent with acute alcoholic toxicity in the setting of chronic liver disease. He does not seem to be experiencing any severe hypoglycemia or signs and symptoms of acute renal failure at this time. Continuing to monitor labs and clinical exam. -His MELD is 20. (2) Altered mental status: PLAN: Altered mental status is multifactorial. He did have a CT scan abdomen pelvis that showed he does have a portosystemic shunt. (3) Alcoholic hepatitis: PLAN: Is MADRE is low at 28 and since he is not rapidly deteriorating think he would benefit from steroids. (4) Portosystemic shunt, spontaneous: PLAN: Spontaneous eron-systemic shunts are frequent in liver cirrhosis and their prevalence increases as liver function deteriorates, probably as a consequence of worsening portal hypertension, but without achieving an effective protection against cirrhosis' complications.?recurrent or persistent hepatic encephalopathy is more frequent in patients with splenorenal shunt, while the presence of gastric varices and consequently the incidence of variceal bleeding is more common in gastrorenal shunt. In the advanced stage, the presence of large SPSS can lead to the so called ?portosystemic shunt syndrome?, characterized by a progressive deterioration of hepatic function, hepatic encephalopathy and, sometimes, portal vein thrombosis.? I will check an ammonia level. He may need upper endoscopy depending on what his platelet count does tomorrow as portosystemic shunting can be associated with esophageal varices. Being that he has anastomosis and shunting from his umbilical vein to his epigastric vein and makes them more prevalent. I will start him on lactulose and Xifaxan. Charges/Coding Visit Charges Inpatient E&M: 61230 Init Hosp L3
[2024-04-21 17:57] LABS: Erythrocyte Sedimentation Rate < 1 mm/hr (0-20)
[2024-04-21 18:19] LABS: CRP 3.27 mg/L (0.0-3.0); Ferritin 922 ng/mL (26-388); Iron 116 ug/dL (65-175); Iron Binding Capacity,Total 202 ug/dL (250-450); PERCENT IRON SATURATION 57.4 % (15.0-55.0)
[2024-04-21] MEDS: rifAXIMin 550 MG Tablet PO (21:19)
[2024-04-22] VITALS (25 sets, daily range): BP systolic 121–148; BP diastolic 84–110; PULSE 101–107; RESP 15–26; TEMP 36.2–36.7; O2SAT 91–98; BMI 29.7
[2024-04-22] MEDS: KCL 20MEQ in D5.45NS 20 MEQ/1,000 ML IV.SOLN. 150 MEQ IV ×3 (03:14→20:10)
[2024-04-22] MEDS: CHLORHEXIDINE GLUC 2% CLOTH 1 EACH TOWELETTE TOPICAL (03:14)
[2024-04-22 03:39] LABS: Absolute Lymphocyte Count 0.83 X10^3/uL (0.83-4.51); Absolute Neutrophil Count 2.6 X10^3/uL (2.0-7.7); Basophil# 0.04 X10^3/uL; Eosinophil# 0.14 X10^3/uL; Eosinophils% 3.4 % (0-5); Hematocrit 38.6 % (40-54); Hemoglobin 13.4 g/dL (13.0-16.5); Lymphocyte # 0.83 X10^3/ul (0.83-4.51); Mean Corp Hgb Conc 34.7 g/dL (32-36); Mean Corpuscular Hgb 33.6 pg (27.0-32.0); Mean Corpuscular Volume 96.7 fL (80-94); Mean Platelet Vol. 11.4 fl (6.2-12.0); NRBC Flagged by Analyzer 0 % (0-5); Neutrophil # 2.64 X10^3/uL (2.7-7.7); Neutrophil % 63.4 % (47-70); POSITIVE COUNT YES; RBC Distribution Width CV 16.9 % (11.6-14.6); RBC Distribution Width SD 59.9 fl (35.1-43.9); Red Blood Count 3.99 M/mm3 (4.6-6.2); White Blood Count 4.2 K/mm3 (4.4-11.0)
[2024-04-22 03:42] LABS: Differential Indicated SCAN CRITERIA MET; Platelet Count 41 K/mm3 (150-450)
[2024-04-22 03:57] LABS: AST(SGOT) 150 U/L (15-37); Alanine Aminotransfer ALT/SGPT 91 U/L (16-61); Albumin, Serum 2.7 g/dL (3.2-5.0); Alkaline Phosphatase 132 U/L (45-117); Anion Gap 6 (5-15); BUN 12 mg/dL (7-18); BUN/Creat Ratio 11.7 RATIO (10-20); Calcium,Total 7.8 mg/dL (8.5-10.1); Chloride 104 mmol/L (98-107); Creatinine, Serum 1.03 mg/dL (0.70-1.30); EST Glomerular Filtration Rate 80 mL/min (>60); Est Glom Filt Rate - Afr Amer 97 mL/min (>60); Globulin 2.8 g/dL (2.2-4.2); Glucose 120 mg/dL (74-106); Magnesium 1.9 mg/dL (1.6-2.6); Phosphorus 2.4 mg/dL (2.5-4.9); Potassium 3.6 mmol/L (3.5-5.1); Protein, Total 5.5 g/dL (6.4-8.2); Sodium Level 137 mmol/L (136-145)
[2024-04-22 04:41] LABS: Platelet Estimate MKD DEC (ADEQ)
[2024-04-22] MEDS: Phenobarbital Sodium 130 MG/ML Vial 100 MG IV ×3 (05:45→20:09)
[2024-04-22] MEDS: Potassium Phosphate 21 MM in 0.9% Normal Saline (250mL Bag) 250 ML 84 MM IV (05:48)
[2024-04-22] MEDS: 0.9% Saline Lock 10 ML Syringe IV (05:48)
[2024-04-22] MEDS: Lactulose 20 GM/30 ML UDC PO ×2 (05:56→14:01)
--- NOTE | 2024-04-22 06:11 | PCM.PN.HOSP ---
Reason for Visit Reason for Visit: Diagnoses Overweight (04/21/24) Hypokalemia (04/21/24) Alcohol abuse, uncomplicated (04/21/24) Alcohol use, unspecified with withdrawal with perceptual disturbance (04/21/24) Alcohol use, unspecified with withdrawal, unspecified (04/21/24) Unspecified atrial flutter (04/21/24) Other disorder of circulatory system (04/21/24) Alcoholic hepatitis without ascites (04/21/24) Alcoholic cirrhosis of liver without ascites (04/21/24) Altered mental status, unspecified (04/21/24) Personal history of other venous thrombosis and embolism (04/21/24) Subjective Subjective Patient seen still remains on Precedex. Per nursing staff patient has had episodes of agitation. Plan is to observe in the ICU for 1 more day Objective Data Objective Data Vital Signs: Vital Signs Temp Pulse Resp BP Pulse Ox O2 Del Method O2 Flow Rate 97.1 F L 105 H 18 132/107 H 95 Room Air 2 04/22/24 04:00 04/22/24 06:00 04/22/24 06:00 04/22/24 06:00 04/22/24 06:00 04/22/24 06:00 04/21/24 18:00 Oxygen Flow Rate (L/min) 2 Oxygen Delivery Method Room Air Weight: 99.5 kg Body Mass Index (BMI) 29.7 Intake & Output: Intake and Output for Last 24 Hours 04/20/24 04/21/24 04/22/24 23:59 23:59 23:59 Intake Total 3931.60 / 3960.60 1180.70 / 1180.70 Output Total 250 / 650 1400 / 1400 Balance 3681.60 / 3310.60 -219.30 / -219.30 Lab / Micro Data 04/22/24 03:19 04/22/24 03:19 Labs: Laboratory Results - last 24 hr 04/21/24 05:55: WBC 2.5 L, RBC 3.73 L, Hgb 12.5 L, Hct 35.5 L, MCV 95.2 H, MCH 33.5 H, MCHC 35.2, RDW Std Deviation 58.0 H, RDW Coeff of Asher 16.7 H, Plt Count 30 L*, MPV 13.4 H, Immature Gran % (Auto) 0.400, Neut % (Auto) 43.9 L, Lymph % (Auto) 28.9, [place] % (Auto) 20.9 H, Eos % (Auto) 4.3, Baso % (Auto) 1.6 H, Absolute Neuts (auto) 1.1 L, Absolute Lymphs (auto) 0.73 L, Nucleated RBC % 0, Diff Path Review Reviewed, Platelet Estimate MKD DEC, Stomatocytes RARE, Sodium 138, Potassium 3.5, Chloride 100, Carbon Dioxide 31.0, Anion Gap 7, BUN 15, Creatinine 1.13, Estim Creat Clear Calc 90.14, Est GFR (MDRD) Af Amer 87, Est GFR (MDRD) Non-Af 72, BUN/Creatinine Ratio 13.3, Glucose 99, Calcium 8.3 L, Total Bilirubin 3.70 H, AST 210 H, ALT 97 H, Alkaline Phosphatase 134 H, Total Protein 5.4 L, Albumin 2.9 L, Globulin 2.5, Albumin/Globulin Ratio 1.2, TSH 1.46 04/21/24 17:00: Ammonia 83.0 H 04/21/24 17:05: ESR < 1, Iron 116, TIBC 202 L, Iron Saturation 57.4 H, Ferritin 922 H, C-React Prot Ext Range 3.27 H 04/22/24 03:19: WBC 4.2 L, RBC 3.99 L, Hgb 13.4, Hct 38.6 L, MCV 96.7 H, MCH 33.6 H, MCHC 34.7, RDW Std Deviation 59.9 H, RDW Coeff of Asher 16.9 H, Plt Count 41 L*, MPV 11.4, Immature Gran % (Auto) 0.200, Neut % (Auto) 63.4, Lymph % (Auto) 20.0, [place] % (Auto) 12.0 H, Eos % (Auto) 3.4, Baso % (Auto) 1.0, Absolute Neuts (auto) 2.6, Absolute Lymphs (auto) 0.83, Nucleated RBC % 0, Diff Path Review May foll, Platelet Estimate MKD DEC, Sodium 137, Potassium 3.6, Chloride 104, Carbon Dioxide 27.0, Anion Gap 6, BUN 12, Creatinine 1.03, Estim Creat Clear Calc 98.90, Est GFR (MDRD) Af Amer 97, Est GFR (MDRD) Non-Af 80, BUN/Creatinine Ratio 11.7, Glucose 120 H, Calcium 7.8 L, Phosphorus 2.4 L, Magnesium 1.9, Total Bilirubin 3.90 H, AST 150 H, ALT 91 H, Alkaline Phosphatase 132 H, Total Protein 5.5 L, Albumin 2.7 L, Globulin 2.8, Albumin/Globulin Ratio 1.0 Physical Exam Narrative GENERAL: Sedated with Precedex HEENT: Atraumatic; normocephalic EYES; Anicteric, Normal Conjunctiva NECK; supple, normal thyroid, RESPIRATORY: Diminished to auscultation CARDIOVASCULAR: Regular S1-S2 GI: soft, normoactive bowel sounds, : No Renal angle tenderness; EXTREMITIES: No edema, no clubbing, MUSCULOSKELETAL: no muscle wasting NEURO: no lateralizing signs. SKIN: No Rash PSYCH; sedated with Precedex Assessment & Plan Assessment/Plan (1) Alcohol withdrawal: QUALIFIERS: Complication of substance-induced condition: with perceptual disturbance Qualified Code(s): F10.932 - Alcohol use, unspecified with withdrawal with perceptual disturbance PLAN: Plan Patient is a 54-year-old gentleman with history of chronic alcohol dependence admitted with acute alcohol withdrawal 1. Acute alcohol withdrawal - Patient has been admitted intensive care unit started on Precedex drip in addition to adjuvant medications including gabapentin, Bentyl, hydroxyzine and clonidine as needed for alcohol withdrawal symptoms. Patient was also placed on thiamine and folic acidConsultation placed to 180 counseling services ? 04/22/2024;Patient seen still remains on Precedex. Per nursing staff patient has had episodes of agitation. Plan is to monitor in the ICU for 1 more day then transition to regular nursing floor with reinitiation of phenobarb taper 2. Hypokalemia ? Corrected per protocol 3. Paroxysmal A-fib ? Status post radiofrequency ablation. Patient is on amiodarone and metoprolol, continued 4. Acute transaminitis ? Patient picture consistent with alcoholic hepatitis will monitor with daily LFTs 5.Thrombocytopenia ? Suspected to be secondary to patient cirrhosis of the liver as well as chronic alcohol use monitoring with daily CBC with differential. No indication for platelet transfusion at this point ? 04/22/2024; platelet counts remain stable 6. History of previous DVT 7. Tobacco dependence - Counseled on cessation, offered nicotine patch for tobacco cravings 8. DVT prophylaxis ? Chemoprophylaxis contraindicated given patient low platelet count Time spent in the patient's overall evaluation,decision-making process, review of diagnostic data, adjustment of management, discussion with other providers, nursing nursing and ancillary staff involved in patient's care documentation, 36 Minutes Charges/Coding Visit Charges Inpatient E&M: 71114 Subs Hosp L2
[2024-04-22] MEDS: dexMEDEtomidine 1,000 MCG in 0.9% Normal Saline (250mL Bag) 240 ML 29 MCG CONT INF ×2 (08:05→16:30)
[2024-04-22] MEDS: rifAXIMin 550 MG Tablet PO ×2 (08:29→20:09)
[2024-04-22] MEDS: Ferrous Sulfate 325 MG Tablet PO ×2 (08:29→14:01)
[2024-04-22] MEDS: Folic Acid 1 MG Tablet PO (08:30)
[2024-04-22] MEDS: Thiamine Hydrochloride 100 MG Tablet PO (08:30)
[2024-04-22] MEDS: Metoprolol Tartrate 25 MG Tablet PO ×2 (08:30→20:09)
[2024-04-22] MEDS: Amiodarone 200 MG Tablet PO ×2 (08:30→20:09)
[2024-04-22] MEDS: Aspirin E.C. 81 MG Tablet PO (08:30)
[2024-04-22] MEDS: Potassium Chloride Oral Tablet 20 MEQ 40 MEQ PO (08:31)
[2024-04-22] MEDS: Gabapentin 300 MG Capsule PO ×2 (10:16→20:11)
[2024-04-22] MEDS: hydrOXYzine PAM 25 MG Capsule 50 MG PO ×2 (10:16→16:24)
--- NOTE | 2024-04-22 15:42 | CHAPLAIN ---
Type of Pastoral Visit _x__ Initial Visit ___ Follow-up Visit ___ On-call Visit ___ General Patient Visit ___ Spiritual Assessment ___ Family Conference ___ Bereavement ___ Rapid Response ___ Code Blue ___ Other (describe below) Pastoral Care Referral From ___ Patient ___ Family _x__ Nurse ___ Physician ___ Keypuncher ___ Flying Squad Worker ___ Other (describe below) Sacrament/Intervention _x__ Active listening ___ Anointing ___ Voodoo ___ Bereavement ___ Communion ___ Rajwinder exploration ___ ___ Life review _x__ Prayer ___ Reconciliation ___ Sacrament of Sick _x__ Supportive presence ___ Wedding ___ Other (describe below) Pastoral Comments patient is awake but not fully alert; pt does answer questions however slowly; pt speaks of his rajwinder as a teen and young adult; pt is unable to articulate his concerns but does welcome a prayer for his support when asked about that; pt takes hold of this chaplains hands as prayer is given; offer of return on Saturday if pt is available and pt agrees
[2024-04-22 16:15] LABS: Pathologist Review Reviewed
[2024-04-22] MEDS: traZODone 100 MG Tablet PO (20:11)
[2024-04-23] VITALS (29 sets, daily range): BP systolic 90–127; BP diastolic 57–113; PULSE 100–105; RESP 15–22; TEMP 36.2–36.8; O2SAT 94–100; BMI 30.5
[2024-04-23] MEDS: KCL 20MEQ in D5.45NS 20 MEQ/1,000 ML IV.SOLN. 150 MEQ IV ×2 (01:00→07:53)
[2024-04-23] MEDS: dexMEDEtomidine 1,000 MCG in 0.9% Normal Saline (250mL Bag) 240 ML 29 MCG CONT INF (02:28)
[2024-04-23 02:48] LABS: Absolute Lymphocyte Count 0.95 X10^3/uL (0.83-4.51); Basophil# 0.05 X10^3/uL; Basophil% 1.1 % (0-1); Eosinophil# 0.15 X10^3/uL; Eosinophils% 3.2 % (0-5); Hematocrit 37.4 % (40-54); Lymphocyte # 0.95 X10^3/ul (0.83-4.51); Lymphocyte % 20.3 % (19-41); Mean Corp Hgb Conc 34.8 g/dL (32-36); Mean Corpuscular Hgb 33.9 pg (27.0-32.0); Mean Corpuscular Volume 97.4 fL (80-94); Mean Platelet Vol. 11.5 fl (6.2-12.0); Monocyte# 0.49 X10^3/uL; Monocyte% 10.4 % (0-10); NRBC Flagged by Analyzer 0 % (0-5); Neutrophil # 3.03 X10^3/uL (2.7-7.7); Neutrophil % 64.6 % (47-70); POSITIVE COUNT YES; RBC Distribution Width CV 17.2 % (11.6-14.6); RBC Distribution Width SD 61.3 fl (35.1-43.9); Red Blood Count 3.84 M/mm3 (4.6-6.2); White Blood Count 4.7 K/mm3 (4.4-11.0)
[2024-04-23 02:49] LABS: Platelet Count 33 K/mm3 (150-450)
[2024-04-23 03:05] LABS: AST(SGOT) 91 U/L (15-37); Alanine Aminotransfer ALT/SGPT 79 U/L (16-61); Albumin, Serum 2.7 g/dL (3.2-5.0); Alkaline Phosphatase 128 U/L (45-117); Anion Gap 7 (5-15); BUN 11 mg/dL (7-18); BUN/Creat Ratio 11.1 RATIO (10-20); Calcium,Total 7.8 mg/dL (8.5-10.1); Chloride 105 mmol/L (98-107); Creatinine, Serum 0.99 mg/dL (0.70-1.30); EST Glomerular Filtration Rate 83 mL/min (>60); Est Glom Filt Rate - Afr Amer 101 mL/min (>60); Estimated Creatinine Clearance 104.19 ml/min; Globulin 2.7 g/dL (2.2-4.2); Glucose 104 mg/dL (74-106); Magnesium 1.7 mg/dL (1.6-2.6); Phosphorus 2.1 mg/dL (2.5-4.9); Protein, Total 5.4 g/dL (6.4-8.2); Sodium Level 136 mmol/L (136-145)
[2024-04-23] MEDS: Phenobarbital Sodium 130 MG/ML Vial 100 MG IV (05:48)
[2024-04-23 07:09] LABS: HEPATITIS B SURFACE AG Negative (Negative); Hep C Antibodies Non Reactive (Non Reactive); Hepatitis A IgM Antibody Negative (Negative); Hepatitis B Core AB IgM Negative (Negative)
--- NOTE | 2024-04-23 08:01 | PN.HOSP_ITS ---
Reason for Visit Reason for Visit: Diagnoses Overweight (04/21/24) Hypokalemia (04/21/24) Alcohol abuse, uncomplicated (04/21/24) Alcohol use, unspecified with withdrawal with perceptual disturbance (04/21/24) Alcohol use, unspecified with withdrawal, unspecified (04/21/24) Unspecified atrial flutter (04/21/24) Other disorder of circulatory system (04/21/24) Alcoholic hepatitis without ascites (04/21/24) Alcoholic cirrhosis of liver without ascites (04/21/24) Altered mental status, unspecified (04/21/24) Personal history of other venous thrombosis and embolism (04/21/24) Subjective Subjective Patient admitted for acute mental status changes in the setting of alcohol withdrawal, cirrhosis, concerns regarding acute alcoholic hepatitis. This morning his sensorium has improved, no episodes of agitation. He refused to take lactulose yesterday. No bowel movements since his admission. Persistent tremulousness noticed by the patient and the nurse Objective Data Objective Data Total bilirubin 4, improvement in AST and ALT, albumin 2.7, persistent severe thrombocytopenia. Vital Signs: Vital Signs Temp Pulse Resp BP Pulse Ox O2 Del Method O2 Flow Rate 98.3 F 101 H 16 113/93 H 96 Room Air 2 04/23/24 04:00 04/23/24 07:00 04/23/24 07:00 04/23/24 07:00 04/23/24 07:00 04/23/24 07:00 04/21/24 18:00 Oxygen Flow Rate (L/min) 2 Oxygen Delivery Method Room Air Weight: 225 lb 12.054 oz Body Mass Index (BMI) 30.5 Intake & Output: Intake and Output for Last 24 Hours 04/21/24 04/22/24 04/23/24 23:59 23:59 23:59 Intake Total 3931.60 / 3960.60 4361.43 / 4386.33 2413.60 / 2413.60 Output Total 250 / 650 2350 / 2350 450 / 450 Balance 3681.60 / 3310.60 2010.43 / 6.33 1963.60 / 1963.60 Lab / Micro Data Attestation: I reviewed the patient's lab results. 04/23/24 02:35 04/23/24 02:35 Labs: Laboratory Results - last 24 hr 04/21/24 17:05: Hepatitis A IgM Ab Negative, Hep Bs Antigen Negative, Hep B Core IgM Ab Negative, Hepatitis C Ab (EIA) Non Reactive, Hep C Ab Comment Comment 04/22/24 03:19: Diff Path Review Reviewed 04/23/24 02:35: WBC 4.7, RBC 3.84 L, Hgb 13.0, Hct 37.4 L, MCV 97.4 H, MCH 33.9 H, MCHC 34.8, RDW Std Deviation 61.3 H, RDW Coeff of Asher 17.2 H, Plt Count 33 L* , MPV 11.5, Immature Gran % (Auto) 0.400, Neut % (Auto) 64.6, Lymph % (Auto) 20.3, [place] % (Auto) 10.4 H, Eos % (Auto) 3.2, Baso % (Auto) 1.1 H, Absolute Neuts (auto) 3.0, Absolute Lymphs (auto) 0.95, Nucleated RBC % 0, Diff Path Review May , Sodium 136, Potassium 4.0, Chloride 105, Carbon Dioxide 24.0, Anion Gap 7, BUN 11, Creatinine 0.99, Estim Creat Clear Calc 104.19, Est GFR (MDRD) Af Amer 101, Est GFR (MDRD) Non-Af 83, BUN/Creatinine Ratio 11.1, Glucose 104, Calcium 7.8 L, Phosphorus 2.1 L, Magnesium 1.7, Total Bilirubin 4.00 H, AST 91 H, ALT 79 H, Alkaline Phosphatase 128 H, Total Protein 5.4 L, Albumin 2.7 L, Globulin 2.7, Albumin/Globulin Ratio 1.0 Physical Exam Const alert and oriented x3 Constitutional Narrative: Icterus present HEENT head/scalp atraumatic Neck no lymphadenopathy Resp normal respiratory effort and no retractions Cardio regular rate and regular rhythm GI normal to inspection, nondistended, normoactive bowel sounds Extremity normal to inspection Neuro oriented x3 Neuro Narrative: No asterixis Assessment & Plan Assessment/Plan (1) Alcoholic hepatitis: (2) Altered mental status: (3) History of deep vein thrombosis: (4) Alcoholic cirrhosis: QUALIFIERS: Ascites presence: without ascites Qualified Code(s): K70.30 - Alcoholic cirrhosis of liver without ascites PLAN: Plan 54-year-old man is admitted to the ICU with concerns regarding altered mental status in the setting of ongoing alcohol use, underlying cirrhosis with portal hypertension, portosystemic shunts, hypokalemia, paroxysmal atrial flutter. His last drink was 5 days before admission, and presentation is concerning for acute delirium tremens and he was on a Precedex drip at present. Given his underlying cirrhosis, presentation with acute alcoholic hepatitis his features could be consistent with underlying hepatic encephalopathy. The patient was has improved by tomorrow he can be planned for discharge. #Acute altered mental status: Differentials include acute delirium tremens, versus hepatic encephalopathy -Ongoing confusion with Precedex -Lactulose 20 g p.o. 3 times daily, no bowel movements since admission -Rifaximin 520 mg twice daily -Thiamine 100 mg p.o. supplementation #Secondary iron overload: Ferritin 9922, common in the setting of underlying cirrhosis and alcohol use -Continue to monitor.. #Alcohol-related cirrhosis #Portosystemic hypertension -Appreciate gastroenterology input -Discussed inpatient versus outpatient endoscopy for esophageal varices #Acute alcoholic hepatitis: -AST ALT are improving, improvement in alk phos -Continue to monitor for now -Maddrey score is less than 32, does not need steriods -repeat INR today #PAF; s/p radiofrequency ablation x 3 (and not on anticoagulation) - Continue Amiodarone and Metoprolol as previous. Continue IV Diltiazem to keep HR < 100 bpm #Severe thrombocytopenia -Related to portal hypertension -Hold antiplatelet medications given the severe thrombocytopenia #DVT prophylaxis: -Chemoprophylaxis contraindicated given the low platelet count Charges/Coding Visit Charges Inpatient E&M: 48021 Subs Hosp L2
[2024-04-23] MEDS: Ferrous Sulfate 325 MG Tablet PO ×2 (08:16→17:24)
[2024-04-23] MEDS: Amiodarone 200 MG Tablet PO ×2 (08:16→21:02)
[2024-04-23] MEDS: Potassium Chloride Oral Tablet 20 MEQ 40 MEQ PO (08:16)
[2024-04-23] MEDS: Folic Acid 1 MG Tablet PO (08:16)
[2024-04-23] MEDS: Metoprolol Tartrate 25 MG Tablet PO ×2 (08:16→21:02)
[2024-04-23] MEDS: rifAXIMin 550 MG Tablet PO ×2 (08:17→21:02)
[2024-04-23] MEDS: Thiamine Hydrochloride 100 MG Tablet PO (08:17)
[2024-04-23] MEDS: Lactulose 20 GM/30 ML UDC PO ×2 (11:12→21:02)
[2024-04-23 11:45] LABS: International Normalized Ratio 1.4; Prothrombin Time (Protime)PT. 17.2 SECONDS (11.7-14.9)
[2024-04-23] MEDS: Phenobarbital 32.4 MG Tablet 97.2 MG PO ×3 (13:44→21:02)
[2024-04-24] VITALS (17 sets, daily range): BP systolic 106–149; BP diastolic 75–102; PULSE 101–111; RESP 15–19; TEMP 36.6–37.1; O2SAT 96–100; BMI 30.9
[2024-04-24] MEDS: Phenobarbital 32.4 MG Tablet 97.2 MG PO ×3 (01:21→09:49)
[2024-04-24 01:43] LABS: Amphetamine Urine VISTA NEGATIVE (<1000 ng/mL); Barbiturate Urine VISTA POSITIVE (< 200 ng/mL); Benzodiazepine Urine VISTA NEGATIVE (< 200 ng/mL); Cocaine Urine VISTA NEGATIVE (< 300 ng/mL); Ecstacy Urine VISTA NEGATIVE (< 500 ng/mL); Methadone Urine VISTA NEGATIVE (< 300 ng/mL); PCP Urine VISTA NEGATIVE (< 25 ng/mL); THC Urine VISTA NEGATIVE (< 50 ng/mL); Vista UDS pH Range 6
[2024-04-24] MEDS: Acetaminophen 500 MG Tablet PO ×2 (02:35→06:46)
[2024-04-24 05:00] LABS: Absolute Lymphocyte Count 0.66 X10^3/uL (0.83-4.51); Absolute Neutrophil Count 2.3 X10^3/uL (2.0-7.7); Basophil# 0.05 X10^3/uL; Basophil% 1.3 % (0-1); Eosinophil# 0.17 X10^3/uL; Eosinophils% 4.5 % (0-5); Hematocrit 34.3 % (40-54); Hemoglobin 11.9 g/dL (13.0-16.5); Lymphocyte # 0.66 X10^3/ul (0.83-4.51); Lymphocyte % 17.4 % (19-41); Mean Corp Hgb Conc 34.7 g/dL (32-36); Mean Corpuscular Hgb 34.2 pg (27.0-32.0); Mean Corpuscular Volume 98.6 fL (80-94); Mean Platelet Vol. 12.3 fl (6.2-12.0); Monocyte# 0.62 X10^3/uL; Monocyte% 16.3 % (0-10); NRBC Flagged by Analyzer 0 % (0-5); Neutrophil # 2.27 X10^3/uL (2.7-7.7); Neutrophil % 59.7 % (47-70); POSITIVE COUNT YES; RBC Distribution Width CV 17.3 % (11.6-14.6); RBC Distribution Width SD 62.2 fl (35.1-43.9); Red Blood Count 3.48 M/mm3 (4.6-6.2); White Blood Count 3.8 K/mm3 (4.4-11.0)
[2024-04-24 05:03] LABS: Differential Indicated SCAN CRITERIA MET; Platelet Count 42 K/mm3 (150-450)
[2024-04-24] MEDS: Lactulose 20 GM/30 ML UDC PO (05:07)
[2024-04-24] MEDS: 0.9% Saline Lock 10 ML Syringe IV ×2 (05:07→06:47)
[2024-04-24 05:17] LABS: AST(SGOT) 74 U/L (15-37); Alanine Aminotransfer ALT/SGPT 61 U/L (16-61); Albumin, Serum 2.4 g/dL (3.2-5.0); Alkaline Phosphatase 110 U/L (45-117); Anion Gap 6 (5-15); BUN 11 mg/dL (7-18); BUN/Creat Ratio 10.3 RATIO (10-20); Calcium,Total 7.6 mg/dL (8.5-10.1); Chloride 110 mmol/L (98-107); Creatinine, Serum 1.07 mg/dL (0.70-1.30); EST Glomerular Filtration Rate 77 mL/min (>60); Est Glom Filt Rate - Afr Amer 93 mL/min (>60); Estimated Creatinine Clearance 98.23 ml/min; Globulin 2.5 g/dL (2.2-4.2); Glucose 81 mg/dL (74-106); Potassium 4.4 mmol/L (3.5-5.1); Protein, Total 4.9 g/dL (6.4-8.2); Sodium Level 138 mmol/L (136-145)
--- NOTE | 2024-04-24 05:24 | RAD_ITS ---
EXAM: XR CHEST, 1 VIEW CLINICAL INDICATION: congestion TECHNIQUE: Frontal view of the chest. COMPARISON: 04/20/2024. FINDINGS: LUNGS AND PLEURAL SPACES: Opacities the lung bases bilaterally likely due to atelectasis. No pneumothorax. No effusion. HEART: Unremarkable. Cardiac silhouette not enlarged. MEDIASTINUM: Central airways and mediastinal contour are unremarkable. BONES/JOINTS: Unremarkable. No acute fracture. SOFT TISSUES: Unremarkable. RAD/Chest 1 View (Portable) IMPRESSION: Opacities the lung bases bilaterally likely due to atelectasis. Areas of pneumonia are not excluded. Electronically Signed: Shiva Villanueva MD at 7:47 EDT ,
[2024-04-24] MEDS: guaiFENesin Dm 10 ML UDC PO (05:29)
[2024-04-24 05:39] LABS: Magnesium 1.5 mg/dL (1.6-2.6); Phosphorus 1.9 mg/dL (2.5-4.9)
[2024-04-24] MEDS: Magnesium Sulfate 2 GM in Dextrose 5%-Water (100mL Bag) 100 ML IV (06:05)
[2024-04-24] MEDS: Potassium Phosphate 40 MM in 0.9% Normal Saline (500mL Bag) 500 ML 62.5 MM IV (06:05)
[2024-04-24 06:18] LABS: Platelet Estimate MKD DEC (ADEQ)
[2024-04-24] MEDS: Ferrous Sulfate 325 MG Tablet PO ×2 (07:41→16:24)
[2024-04-24] MEDS: Folic Acid 1 MG Tablet PO (07:41)
[2024-04-24] MEDS: Thiamine Hydrochloride 100 MG Tablet PO (07:41)
[2024-04-24 09:29] LABS: Pathologist Review Reviewed
[2024-04-24 09:35] LABS: Pathologist Review Reviewed
[2024-04-24] MEDS: Potassium Chloride Oral Tablet 20 MEQ 40 MEQ PO (09:48)
[2024-04-24] MEDS: rifAXIMin 550 MG Tablet PO ×2 (09:49→22:08)
[2024-04-24] MEDS: Metoprolol Tartrate 25 MG Tablet PO ×2 (09:49→22:08)
[2024-04-24] MEDS: Amiodarone 200 MG Tablet PO ×2 (09:49→22:08)
--- NOTE | 2024-04-24 11:06 | PN.HOSP_ITS ---
Reason for Visit Reason for Visit: Diagnoses Overweight (04/21/24) Hypokalemia (04/21/24) Alcohol abuse, uncomplicated (04/21/24) Alcohol use, unspecified with withdrawal with perceptual disturbance (04/21/24) Alcohol use, unspecified with withdrawal, unspecified (04/21/24) Unspecified atrial flutter (04/21/24) Other disorder of circulatory system (04/21/24) Alcoholic hepatitis without ascites (04/21/24) Alcoholic cirrhosis of liver without ascites (04/21/24) Altered mental status, unspecified (04/21/24) Personal history of other venous thrombosis and embolism (04/21/24) Subjective Subjective Decreased tremulousness, no hallucinations. The Precedex drip was stopped yesterday. Has been noticing some cough with mucoid expectoration, no shortness of breath. No fever. There has been leukopenia Objective Data Objective Data Vital Signs: Vital Signs Temp Pulse Resp BP Pulse Ox O2 Del Method O2 Flow Rate 97.9 F 105 H 16 128/85 H 98 Room Air 2 04/24/24 08:00 04/24/24 10:00 04/24/24 10:00 04/24/24 10:00 04/24/24 10:00 04/24/24 10:00 04/21/24 18:00 Oxygen Flow Rate (L/min) 2 Oxygen Delivery Method Room Air Weight: 228 lb 6.382 oz Body Mass Index (BMI) 30.9 Intake & Output: Intake and Output for Last 24 Hours 04/22/24 04/23/24 04/24/24 23:59 23:59 23:59 Intake Total 4361.43 / 4386.33 4155.54 / 4155.54 1904 / 1904 Output Total 2350 / 2350 3550 / 3550 1750 / 1750 Balance 43 605.54 / 605.54 154 / 154 Lab / Micro Data Attestation: I reviewed the patient's lab results. 04/24/24 04:43 04/24/24 04:43 Labs: Laboratory Results - last 24 hr 04/23/24 02:35: Diff Path Review Reviewed 04/23/24 11:17: PT 17.2 H, INR 1.4 04/24/24 01:20: Urine Opiates Screen NEGATIVE, Urine Methadone Screen NEGATIVE, Ur Barbiturates Screen POSITIVE H, Ur Phencyclidine Scrn NEGATIVE, Ur Amphetamines Screen NEGATIVE, MDMA (Ecstasy) Screen NEGATIVE, U Benzodiazepines Scrn NEGATIVE, Urine Cocaine Screen NEGATIVE, U Cannabinoids Screen NEGATIVE, Ur Drug Screen Comment 04/24/24 04:43: WBC 3.8 L, RBC 3.48 L, Hgb 11.9 L, Hct 34.3 L, MCV 98.6 H, MCH 34.2 H, MCHC 34.7, RDW Std Deviation 62.2 H, RDW Coeff of Asher 17.3 H, Plt Count 42 L*, MPV 12.3 H, Immature Gran % (Auto) 0.800, Neut % (Auto) 59.7, Lymph % (Auto) 17.4 L, [place] % (Auto) 16.3 H, Eos % (Auto) 4.5, Baso % (Auto) 1.3 H, Absolute Neuts (auto) 2.3, Absolute Lymphs (auto) 0.66 L, Nucleated RBC % 0, Diff Path Review Reviewed, Platelet Estimate MKD DEC, Sodium 138, Potassium 4.4, Chloride 110 H, Carbon Dioxide 22.0, Anion Gap 6, BUN 11, Creatinine 1.07, Estim Creat Clear Calc 98.23, Est GFR (MDRD) Af Amer 93, Est GFR (MDRD) Non-Af 77, BUN/Creatinine Ratio 10.3, Glucose 81, Calcium 7.6 L, Phosphorus 1.9 L, M agnesium 1.5 L, Total Bilirubin 3.00 H, AST 74 H, ALT 61, Alkaline Phosphatase 110, Total Protein 4.9 L, Albumin 2.4 L, Globulin 2.5, Albumin/Globulin Ratio 1.0 Micro: Microbiology 04/24/24 05:40 Mucosa - Nasopharyngeal Respiratory Panel (PCR) - Final Radiography Diagnostic Testing: Radiology Impression Chest X-Ray 04/24/24 05:24 IMPRESSION: Opacities the lung bases bilaterally likely due to atelectasis. Areas of pneumonia are not excluded. Electronically Signed: Shiva Villanueva MD at 7:47 EDT , Physical Exam Const alert and oriented x3 HEENT head/scalp atraumatic Eyes PERRL Neck no lymphadenopathy Resp normal respiratory effort and no retractions Resp Narrative: Bilateral inspiratory sounds are clear, no Rales or crepitations present. Cardio regular rate and regular rhythm GI normal to inspection, nondistended, normoactive bowel sounds Extremity normal to inspection Neuro oriented x3 Sensorium / Orientation: awake and alert Assessment & Plan Assessment/Plan (1) Alcoholic hepatitis: PLAN: Plan 54-year-old man is admitted to the ICU with concerns regarding altered mental status in the setting of ongoing alcohol use, underlying cirrhosis with portal hypertension, portosystemic shunts, hypokalemia, paroxysmal atrial flutter. His last drink was 5 days before admission, and presentation was concerning for acute delirium tremens and he was on a Precedex drip till 04/23/24. Associated he has severe thrombocytopenia. There has been an improvement his symptoms and he will be transferred to PCU. #Acute altered mental status (resolved): Differentials include acute delirium tremens, versus hepatic encephalopathy -Precedex discontinued -Lactulose 20 g p.o. PRN to titrate towards 2-3 soft stools -Rifaximin 520 mg twice daily -Thiamine 100 mg p.o. supplementation # Acute alcohol withdrawal - Out of the withdrawal period - discontinue phenobarbital - Continue to monitor #Acute cough -Has mild leukopenia, respiratory viral panel has been negative -COVID PCR -Chest x-ray could likely be due to his prolonged hospitalization, encouraged bronchopulmonary hygiene, incentive spirometry -Continue to monitor oxygenation #Secondary iron overload: Ferritin 9922, common in the setting of underlying cirrhosis and alcohol use -Continue to monitor.. #Alcohol-related cirrhosis #Portosystemic hypertension -Appreciate gastroenterology input -Discussed inpatient versus outpatient endoscopy for esophageal varices #Acute alcoholic hepatitis: -AST ALT are improving, improvement in alk phos -Continue to monitor for now -Maddrey score is less than 32, does not need steroids #PAF; s/p radiofrequency ablation x 3 (and not on anticoagulation) - Continue Amiodarone and Metoprolol as previous. Continue IV Diltiazem to keep HR < 100 bpm #Severe thrombocytopenia -Related to portal hypertension -Hold antiplatelet medications given the severe thrombocytopenia #DVT prophylaxis: -Chemoprophylaxis contraindicated given the low platelet count Charges/Coding Visit Charges Inpatient E&M: 29558 Subs Hosp L2
[2024-04-24 15:08] LABS: Anti-Centromere B Ab <0.2 AI (0.0-0.9); Anti-Chromatin <0.2 AI (0.0-0.9); Anti-Jo <0.2 AI (0.0-0.9); Anti-Mitochondrial AB <20.0 Units (0.0-20.0); Anti-Scleroderma-70 AB <0.2 AI (0.0-0.9); Anti-dsDNA Ab <1 IU/mL (0-9); RNP Ab <0.2 AI (0.0-0.9); SJOGREN'S Anti-SS-A test < 0.2 AI (0.0-0.9); SJOGREN'S Anti-SS-B test < 0.2 AI (0.0-0.9); Smith Ab <0.2 AI (0.0-0.9)
--- NOTE | 2024-04-24 16:03 | CHAPLAIN ---
Type of Pastoral Visit ___ Initial Visit _x__ Follow-up Visit ___ On-call Visit ___ General Patient Visit ___ Spiritual Assessment ___ Family Conference ___ Bereavement ___ Rapid Response ___ Code Blue ___ Other (describe below) Pastoral Care Referral From _x__ Patient ___ Family ___ Nurse ___ Physician ___ Application Support ___ Thermal Cutting Tracer Machine Operator ___ Other (describe below) Sacrament/Intervention _x__ Active listening ___ Anointing ___ Hindu ___ Bereavement ___ Communion _x__ Rajwinder exploration ___ _x__ Life review _x__ Prayer ___ Reconciliation ___ Sacrament of Sick _x__ Supportive presence ___ Wedding ___ Other (describe below) Pastoral Comments follow up visit as planned; pt is alert and states that he is fine; pt is willing to talk and carries on a conversation; his speech may be somewhat slower and deliberate but appropriate; pt gives life review and acknowledgement of decision time to come very soon about his future; pt also addresses his spiritual life and reconnecting to a rajwinder community as a future goal
--- NOTE | 2024-04-24 19:04 | ADDICTION ---
Pt was met with to complete [facility] assessment, AUDIT, DUDIT, MT Status, and DC Plan. Pt states that he is not interested in a residential or inpatient facility at this time. Pt was amenable to a referral to [facility]. Pt agreed to follow up with an assessment at [facility] via walk in Mon-Fri 8a-3p. Pt is recommended to follow up with a minimum of counseling, twelve step support, and network management specialist. Pt states his sister will transport him from [facility].
[2024-04-25] VITALS (7 sets, daily range): BP systolic 130–145; BP diastolic 79–99; PULSE 98–106; RESP 16–18; TEMP 36.4–36.8; O2SAT 98–100; BMI 29.9
--- NOTE | 2024-04-25 08:01 | PCM.PN.HOSP ---
Reason for Visit Reason for Visit: Diagnoses Overweight (04/21/24) Hypokalemia (04/21/24) Alcohol abuse, uncomplicated (04/21/24) Alcohol use, unspecified with withdrawal with perceptual disturbance (04/21/24) Alcohol use, unspecified with withdrawal, unspecified (04/21/24) Unspecified atrial flutter (04/21/24) Other disorder of circulatory system (04/21/24) Alcoholic hepatitis without ascites (04/21/24) Alcoholic cirrhosis of liver without ascites (04/21/24) Altered mental status, unspecified (04/21/24) Personal history of other venous thrombosis and embolism (04/21/24) Objective Data Objective Data Vital Signs: Vital Signs Temp Pulse Resp BP Pulse Ox O2 Del Method O2 Flow Rate 98.1 F 101 H 16 138/79 H 98 Room Air 2 04/25/24 03:14 04/25/24 03:14 04/25/24 03:14 04/25/24 03:14 04/25/24 03:14 04/25/24 03:20 04/21/24 18:00 Oxygen Flow Rate (L/min) 2 Oxygen Delivery Method Room Air Weight: 220 lb 10.923 oz Body Mass Index (BMI) 29.9 Intake & Output: Intake and Output for Last 24 Hours 04/23/24 04/24/24 04/25/24 23:59 23:59 23:59 Intake Total 4155.54 / 4155.54 3317.3333 / 3317.3333 Output Total 3550 / 3550 1999 Balance 605.54 / 605.54 1317.3333 / 1317.3333 Lab / Micro Data 04/24/24 04:43 04/25/24 06:10 Labs: Laboratory Results - last 24 hr 04/21/24 17:05: AMOS-1 Antibody <0.2, SS-A/Ro IgG Antibody < 0.2, SS-B/La IgG Antibody < 0.2, Sm (Grace) Antibody <0.2, PASSENGER ELEVATOR OPERATOR Antibody <0.2, Scl-70 Scleroderma Ab <0.2, Double Strand DNA Ab <1, Centromere B Antibody <0.2, Anti-Mitochondrial Ab <20.0 04/23/24 02:35: Diff Path Review Reviewed 04/24/24 04:43: Diff Path Review Reviewed Micro: Microbiology 04/24/24 05:40 Mucosa - Nasopharyngeal Respiratory Panel (PCR) - Final Physical Exam Narrative Seen and examined. Patient admitted for alcohol withdrawal symptoms and he was in the ICU. Now he is doing good with no withdrawal symptoms or hallucinations. On Precedex drip Physical exam General: Alert, Oriented x3, Cooperative HEENT: Atraumatic, PERRLA, EOMI, Normocephalic Oral: No Gingival or Mucosal Lesions/ Ulcerations Neck: Supple, No JVD, Negative Carotid Bruits Chest wall/Lungs: Air entry diminished in bilateral lung bases. No crepitation/rhonchi Cardiovascular: Regular rate, Regular Rhythm, Normal S1, Normal S2, No M/G/R Abdomen: Liver not enlarged. Spleen not palpable. Bowel Sounds Present, Soft, Non Tender, Non-Distended : No dysuria. No renal angle tenderness. No suprapubic tenderness. Extremities: No edema, Capillary Refill Less than 3 Seconds Skin: No rashes, No breakdown Musculoskeletal: No Tenderness to Palpation of Joints or Extremities Neurological: Cranial nerves II-XII grossly intact, DTR 2+/4. No acute focal neurological deficit. Psych/Mental Status: Normal Affect, Appropriate. Assessment & Plan Assessment/Plan (1) Alcoholic hepatitis: PLAN: Plan 54-year-old man is admitted to the ICU with concerns regarding altered mental status in the setting of ongoing alcohol use, underlying cirrhosis with portal hypertension, portosystemic shunts, hypokalemia, paroxysmal atrial flutter. His last drink was 5 days before admission, and presentation was concerning for acute delirium tremens and he was on a Precedex drip till 04/23/24. Associated he has severe thrombocytopenia. There has been an improvement his symptoms and he will be transferred to PCU. #Acute altered mental status (resolved): Differentials include acute delirium tremens, versus hepatic encephalopathy -Precedex discontinued -Lactulose 20 g p.o. PRN to titrate towards 2-3 soft stools -Rifaximin 520 mg twice daily -Thiamine 100 mg p.o. supplementation 04/25: Plan discussed with the nursing staff. Patient will need inpatient alcohol rehab as per our [facility]. Will need evaluation for naltrexone IM injection as patient seems good candidate but will be taken care of by [facility] during inpatient rehab. Patient can follow-up GI/hepatology clinic after discharge. # Acute alcohol withdrawal - Out of the withdrawal period - discontinue phenobarbital - Continue to monitor #Acute cough -Has mild leukopenia, respiratory viral panel has been negative -COVID PCR -Chest x-ray could likely be due to his prolonged hospitalization, encouraged bronchopulmonary hygiene, incentive spirometry -Continue to monitor oxygenation #Secondary iron overload: Ferritin 9922, common in the setting of underlying cirrhosis and alcohol use -Continue to monitor.. # Alcoholic cirrhosis: CT images individually reviewed and shows lobulated nodular appearance, hypoattenuated. Evidence of portal hypertension with recanalization of umbilical vein. -Appreciate gastroenterology input -Discussed inpatient versus outpatient endoscopy for esophageal varices Will need follow-up in GI pathology clinic. -AST ALT are improving, improvement in alk phos -Continue to monitor for now -Maddrey score is less than 32, does not need steroids #PAF; s/p radiofrequency ablation x 3 (and not on anticoagulation) - Continue Amiodarone and Metoprolol as previous. Continue IV Diltiazem to keep HR < 100 bpm #Severe thrombocytopenia -Related to portal hypertension -Hold antiplatelet medications given the severe thrombocytopenia #DVT prophylaxis: -Chemoprophylaxis contraindicated given the low platelet count Charges/Coding Visit Charges Inpatient E&M: 11029 Subs Hosp L2
[2024-04-25] MEDS: Metoprolol Tartrate 25 MG Tablet PO ×2 (08:06→21:01)
[2024-04-25] MEDS: Amiodarone 200 MG Tablet PO ×2 (08:06→21:01)
[2024-04-25] MEDS: Folic Acid 1 MG Tablet PO (08:06)
[2024-04-25] MEDS: Ferrous Sulfate 325 MG Tablet PO ×2 (08:07→16:42)
[2024-04-25] MEDS: rifAXIMin 550 MG Tablet PO ×2 (08:07→21:01)
[2024-04-25] MEDS: Thiamine Hydrochloride 100 MG Tablet PO (08:07)
[2024-04-25] MEDS: Potassium Chloride Oral Tablet 20 MEQ 40 MEQ PO (08:08)
[2024-04-25 08:10] LABS: Anion Gap 6 (5-15); BUN 9 mg/dL (7-18); BUN/Creat Ratio 8.7 RATIO (10-20); Calcium,Total 8.2 mg/dL (8.5-10.1); Chloride 108 mmol/L (98-107); Creatinine, Serum 1.04 mg/dL (0.70-1.30); EST Glomerular Filtration Rate 79 mL/min (>60); Est Glom Filt Rate - Afr Amer 96 mL/min (>60); Estimated Creatinine Clearance 99.46 ml/min; Glucose 77 mg/dL (74-106); Magnesium 1.9 mg/dL (1.6-2.6); Phosphorus 2.1 mg/dL (2.5-4.9); Potassium 4.4 mmol/L (3.5-5.1); Sodium Level 137 mmol/L (136-145)
[2024-04-26 03:20] VITALS: BP 135/88; PULSE 98; RESP 16; TEMP 36.6; O2SAT 100
[2024-04-26 04:19] VITALS: BMI 28.9
--- NOTE | 2024-04-26 07:34 | PCM.PN.HOSP ---
Reason for Visit Reason for Visit: Diagnoses Overweight (04/21/24) Hypokalemia (04/21/24) Alcohol abuse, uncomplicated (04/21/24) Alcohol use, unspecified with withdrawal with perceptual disturbance (04/21/24) Alcohol use, unspecified with withdrawal, unspecified (04/21/24) Unspecified atrial flutter (04/21/24) Other disorder of circulatory system (04/21/24) Alcoholic hepatitis without ascites (04/21/24) Alcoholic cirrhosis of liver without ascites (04/21/24) Altered mental status, unspecified (04/21/24) Personal history of other venous thrombosis and embolism (04/21/24) Objective Data Objective Data Vital Signs: Vital Signs Temp Pulse Resp BP Pulse Ox O2 Del Method O2 Flow Rate 97.9 F 98 16 135/88 H 100 Room Air 2 04/26/24 03:20 04/26/24 03:20 04/26/24 03:20 04/26/24 03:20 04/26/24 03:20 04/26/24 03:20 04/21/24 18:00 Oxygen Flow Rate (L/min) 2 Oxygen Delivery Method Room Air Weight: 213 lb 13.574 oz Body Mass Index (BMI) 28.9 Intake & Output: Intake and Output for Last 24 Hours 04/24/24 04/25/24 04/26/24 23:59 23:59 23:59 Intake Total 3317.3333 / 3317.3333 600 / 600 Output Total 1999 / 1999 Balance 1317.3333 / 1317.3333 600 / 600 Lab / Micro Data 04/24/24 04:43 04/25/24 06:10 Labs: Laboratory Results - last 24 hr 04/25/24 06:10: Sodium 137, Potassium 4.4, Chloride 108 H, Carbon Dioxide 23.0, Anion Gap 6, BUN 9, Creatinine 1.04, Estim Creat Clear Calc 99.46, Est GFR (MDRD) Af Amer 96, Est GFR (MDRD) Non-Af 79, BUN/Creatinine Ratio 8.7 L, Glucose 77, Calcium 8.2 L, Phosphorus 2.1 L, Magnesium 1.9 Micro: Microbiology 04/24/24 05:40 Mucosa - Nasopharyngeal Respiratory Panel (PCR) - Final Physical Exam Narrative Seen and examined. Patient admitted for alcohol withdrawal symptoms and he was in the ICU. Now he is doing good with no withdrawal symptoms or hallucinations. Was on Precedex drip. Patient history it was not clear of discharge during his meeting with 180 on Saturday. Physical exam General: Alert, Oriented x3, Cooperative HEENT: Atraumatic, PERRLA, EOMI, Normocephalic Oral: No Gingival or Mucosal Lesions/ Ulcerations Neck: Supple, No JVD, Negative Carotid Bruits Chest wall/Lungs: Air entry diminished in bilateral lung bases. No crepitation/rhonchi Cardiovascular: Regular rate, Regular Rhythm, Normal S1, Normal S2, No M/G/R Abdomen: Liver not enlarged. Spleen not palpable. Bowel Sounds Present, Soft, Non Tender, Non-Distended : No dysuria. No renal angle tenderness. No suprapubic tenderness. Extremities: No edema, Capillary Refill Less than 3 Seconds Skin: No rashes, No breakdown Musculoskeletal: No Tenderness to Palpation of Joints or Extremities Neurological: Cranial nerves II-XII grossly intact, DTR 2+/4. No acute focal neurological deficit. Psych/Mental Status: Normal Affect, Appropriate. Assessment & Plan Assessment/Plan (1) Alcoholic hepatitis: PLAN: Plan 54-year-old man is admitted to the ICU with concerns regarding altered mental status in the setting of ongoing alcohol use, underlying cirrhosis with portal hypertension, portosystemic shunts, hypokalemia, paroxysmal atrial flutter. His last drink was 5 days before admission, and presentation was concerning for acute delirium tremens and he was on a Precedex drip till 04/23/24. Associated he has severe thrombocytopenia. There has been an improvement his symptoms and he will be transferred to PCU. #Acute altered mental status (resolved): Differentials include acute delirium tremens, versus hepatic encephalopathy -Precedex discontinued -Lactulose 20 g p.o. PRN to titrate towards 2-3 soft stools -Rifaximin 520 mg twice daily -Thiamine 100 mg p.o. supplementation 04/25: Plan discussed with the nursing staff. Patient will need inpatient alcohol rehab as per our [facility]. Will need evaluation for naltrexone IM injection as patient seems good candidate but will be taken care of by 180 during rehab. Patient can follow-up GI/hepatology clinic after discharge. 04/26: After discussion with PCU charge nurse, Jen Bowden it was clear that [facility] wanted patient to be discharged on Saturday and he states follow-up to 180 and then Vivitrol injection and then home discharge # Acute alcohol withdrawal - Out of the withdrawal period - discontinue phenobarbital - Continue to monitor #Acute cough -Has mild leukopenia, respiratory viral panel has been negative -COVID PCR -Chest x-ray could likely be due to his prolonged hospitalization, encouraged bronchopulmonary hygiene, incentive spirometry -Continue to monitor oxygenation #Secondary iron overload: Ferritin 9922, common in the setting of underlying cirrhosis and alcohol use -Continue to monitor.. # Alcoholic cirrhosis: CT images individually reviewed and shows lobulated nodular appearance, hypoattenuated. Evidence of portal hypertension with recanalization of umbilical vein. -Appreciate gastroenterology input -Discussed inpatient versus outpatient endoscopy for esophageal varices Will need follow-up in GI pathology clinic. -AST ALT are improving, improvement in alk phos -Continue to monitor for now -Maddrey score is less than 32, does not need steroids #PAF; s/p radiofrequency ablation x 3 (and not on anticoagulation) - Continue Amiodarone and Metoprolol as previous. Continue IV Diltiazem to keep HR < 100 bpm #Severe thrombocytopenia -Related to portal hypertension -Hold antiplatelet medications given the severe thrombocytopenia #DVT prophylaxis: -Chemoprophylaxis contraindicated given the low platelet count Charges/Coding Visit Charges Inpatient E&M: 15130 Subs Hosp L2
[2024-04-26 08:36] VITALS: BP 132/90; PULSE 101; RESP 18; TEMP 36.2; O2SAT 100
[2024-04-26 08:39] VITALS: PULSE 101
[2024-04-26] MEDS: Thiamine Hydrochloride 100 MG Tablet PO (08:39)
[2024-04-26] MEDS: Amiodarone 200 MG Tablet PO ×2 (08:39→21:45)
[2024-04-26] MEDS: Metoprolol Tartrate 25 MG Tablet PO ×2 (08:39→21:45)
[2024-04-26] MEDS: Folic Acid 1 MG Tablet PO (08:39)
[2024-04-26] MEDS: Ferrous Sulfate 325 MG Tablet PO ×2 (08:39→16:01)
[2024-04-26] MEDS: rifAXIMin 550 MG Tablet PO ×2 (08:39→21:45)
[2024-04-26] MEDS: Potassium Chloride Oral Tablet 20 MEQ 40 MEQ PO (08:40)
[2024-04-26] MEDS: Aspirin E.C. 81 MG Tablet PO (08:40)
[2024-04-26] MEDS: Na Biphos/Potassium Phosphate PACKET 1 PACKET PO ×2 (12:50→21:45)
[2024-04-26 14:00] VITALS: BP 143/96; PULSE 99; RESP 14; TEMP 36.8; O2SAT 100
--- NOTE | 2024-04-26 14:02 | ADDICTION ---
Pt was met with to discuss his discharge plan. Pt's Nurse Jen and Pt's sister were included in the discharge planning. Pt is to be discharged, if medically stable, on Saturday04/27/24 at 9:00am in order to provide pt adequate time to get to his follow up walk in assessment with [facility] main office. Pt and family were agreeable to discharge plans. Pt's sister states she will wait for a call from morning nursing staff to indicate her brother is ready to be picked up. Pt was agreeable to following up with 180 for assessment and to discuss counseling, MAT options and Vivitrol, and peer support services.
--- NOTE | 2024-04-26 14:03 | NURSING ---
BONNIE, WITH ADDICTION PROGRAM, PT, THIS NURSE AND PTS SISTER BECKY, ALL SPOKE TOGETHER TO SET UP A PLAN PT WAS COMFORTABLE WITH. DR CORRALES MADE AWARE WELL. PT TO DC AT 0900 SO HIS SISTER CAN PICK HIM UP AND TAKE HIM TO 180 FOR AND ASSESSMENT.
[2024-04-26] MEDS: Gabapentin 300 MG Capsule PO (15:59)
[2024-04-26 21:00] VITALS: BP 133/102; PULSE 102; RESP 16; TEMP 37.1; O2SAT 98
[2024-04-26 21:06] LABS: Albumin 3.2 g/dL (2.9-4.4); Alpha-1-Globulins 0.2 g/dL (0.0-0.4); Alpha-2-Globulins 0.4 g/dL (0.4-1.0); Ceruloplasmin 18.7 mg/dL (16.0-31.0); Copper, Serum or Plasma 89 ug/dL (69-132); Cytoplasmic Ab (C-ANCA) <1:20 titer (Neg:<1:20); Deamidated Gliadin IgA 5 units (0-19); Deamidated Gliadin IgG 2 units (0-19); Endomysial Antibody IgA Negative (Negative); Gamma Globulin 1.1 g/dL (0.4-1.8); Immunoglobulin A 379 mg/dL (90-386); Immunoglobulin G 1183 mg/dL (603-1613); Immunoglobulin M 77 mg/dL (20-172); PROEL- TOTAL PROTEIN 5.5 g/dL (6.0-8.5); Perinuclear Ab (P-ANCA) <1:20 titer (Neg:<1:20); t-Transglutaminase IgA <2 U/mL (0-3)
[2024-04-26 21:45] VITALS: PULSE 102
[2024-04-26] MEDS: hydrOXYzine PAM 25 MG Capsule 50 MG PO (22:03)
[2024-04-27 04:28] VITALS: BP 136/89; PULSE 101; RESP 14; TEMP 36.4; O2SAT 98
[2024-04-27 05:02] VITALS: BMI 29.0
[2024-04-27 08:40] VITALS: BP 105/77; PULSE 99; RESP 16; O2SAT 100
[2024-04-27] MEDS: Ferrous Sulfate 325 MG Tablet PO (08:46)
[2024-04-27] MEDS: Folic Acid 1 MG Tablet PO (08:46)
[2024-04-27] MEDS: Thiamine Hydrochloride 100 MG Tablet PO (08:46)
[2024-04-27] MEDS: Acetaminophen 500 MG Tablet PO (08:46)
[2024-04-27 08:47] VITALS: PULSE 99
[2024-04-27] MEDS: Potassium Chloride Oral Tablet 20 MEQ 40 MEQ PO (08:47)
[2024-04-27] MEDS: Aspirin E.C. 81 MG Tablet PO (08:47)
[2024-04-27] MEDS: Amiodarone 200 MG Tablet PO (08:47)
[2024-04-27] MEDS: Metoprolol Tartrate 25 MG Tablet PO (08:47)
[2024-04-27] MEDS: rifAXIMin 550 MG Tablet PO (08:47)
--- NOTE | 2024-04-27 09:52 | DS.PCM_ITS ---
Providers Date of Admission: 04/21/24 Primary Care Physician: Bella [facility] Phys Consultations 04/21/24 05:39 Consult: Gastroenterology Routine Consulting Provider: [facility] Reason for Consult: cirrhosis/ elevated LFT's EMERGENT Consult: No MD Notified: Yes Date Notified: 04/21/24 Time Notified: 05:39 Method of Notification: Text Reason For Visit: ETOH WITHDRAWL, PAF, WITH RVR & HYPOKALEMIA Diagnosis Discharge Diagnosis (1) Alcoholic hepatitis: Status: Acute Code(s): K70.10 - Alcoholic hepatitis without ascites Medications at Discharge Home Medications alpha lipoic acid 600 mg capsule 600 mg PO BID 04/20/24 amiodarone 200 mg tablet 200 mg PO BID 04/20/24 aspirin 81 mg tablet,delayed release (Ecotrin Low Strength) 81 mg PO DAILY 04/20/24 ferrous sulfate 325 mg (65 mg iron) tablet (FeroSul) 325 mg PO BID 04/20/24 lactulose 10 gram/15 mL oral solution 30 ml PO TID 04/20/24 metoprolol tartrate 25 mg tablet 25 mg PO Q12H 04/20/24 potassium chloride 20 mEq tablet,extended release (K-Tab) 10 meq PO DAILY 04/20/24 multivitamin 1 tab PO DAILY #30 tabs 04/27/24 rifaximin 550 mg tablet (Xifaxan) 550 mg PO BID #60 tabs 04/27/24 Hospital Course Operations None Procedures None Summary of Care Provided Minutes Spent on Discharge: 28 Hospital Course: Patient last drink 3 days prior to presentation. Patient presented with tremors and hallucinations. Patient with going through delirium tremens and had to be started on dexmedetomidine gtt. Did improve. Patient was seen by addiction medicine and the plan is for the patient to go to his sister's home. That was the original plan when he initially moved from [place] to [place]. He will be following up with 180. He wants to follow-up with 180 to see about using Vivitrol. He is he does not want to receive a dose before he leaves here. Is also noted that he had did have cirrhotic changes on his liver on CAT scan. Patient to follow gastroenterology for further monitoring. Presumably, this is alcohol related cirrhosis. Weight / BMI Weight Weight: 97.4 kg Body Mass Index (BMI) 29.0 ABG / Lab / Microbiology Data 04/24/24 04:43 04/25/24 06:10 Laboratory: Laboratory Results - last 24 hr 04/21/24 17:05: Total Protein (PEP) 5.5 L, Globulin 2.3, Ceruloplasmin 18.7, Serum Copper 89, IgG 1183, IgA 379, IgM 77, Immunofixation Screen Comment, Albumin (EVELYN) 3.2, Albumin/Globulin (EVELYN) 1.4, Oqjxf-3-Uvcdrxnjy EVELYN 0.2, Qrglk-2-Wnofpdbky EVELYN 0.4, Beta-Globulins (EVELYN) 0.7, Gamma Globulins (EVELYN) 1.1, EVELYN M-Bienvenido Not Observed, EVELYN Comments Comment, c-ANCA Antibody <1:20, Atypical p-ANCA <1:20, p-ANCA Antibody <1:20, Endomysial IgA Ab Negative, Tiss Transglutamin IgG 4, Tiss Transglutamin IgA <2, Anti-Gliadin IgG Ab 2, Anti- Gliadin IgA Ab 5 Microbiology: Microbiology 04/24/24 05:40 Mucosa - Nasopharyngeal Respiratory Panel (PCR) - Final D/C Instructions Discharge Diet: No restrictions Meaningful Use Info Meaningful Use Meaningful Use Diagnoses (Choose all that apply): None applicable Ischemic Stroke Statin Dosing Therapy Reference: STATIN DOSE THERAPY REFERENCE: * Patients > 75 years receive moderate or high dose statin therapy. * Patients 75 years or YOUNGER should receive HIGH intensity statin dose unless contraindicated. You will be required to document reason for non-treatment if statin daily dose does not meet guidelines. HIGH DOSE STATIN THERAPY DAILY Atorvastatin > than or = to 40 mg Rosuvastatin > than or = to 20 mg Amlodipine + Atorvastatin > than or = to 2.5/40 mg Ezetimibe + Simvastatin 10/80 mg Simvastatin 80mg Discharge Plan Admission Admit Date/Time: 04/21/24 00:16 Primary Reason for Your Visit: Alcohol withdrawal/delirium tremens Attending Provider: Daniel Marie Primary Care Provider: Care Physician,No Primary Consulting Providers: Nato Quigley; Nato Ly; Florian Baum; Davion Aparicio Instructions Additional Instructions / Restrictions: You presented here going through severe alcohol withdrawal. Is fortunately much better at this time. There is evidence of underlying cirrhosis on your CAT scans. Presume this is due to alcohol. Would recommend following up with gastroenterology in the coming months just for further monitoring. Discharge Orders/Prescriptions Prescriptions: New Xifaxan 550 mg Tablet 550 mg PO BID Qty: 60 0RF multivitamin Tablet 1 tab PO DAILY Qty: 30 0RF Continued metoprolol tartrate 25 mg tablet 25 mg PO Q12H amiodarone 200 mg tablet 200 mg PO BID ferrous sulfate [FeroSul] 325 mg (65 mg iron) tablet 325 mg PO BID aspirin [Ecotrin Low Strength] 81 mg tablet,delayed release (DR/EC) 81 mg PO DAILY alpha lipoic acid 600 mg capsule 600 mg PO BID lactulose 10 gram/15 mL solution 30 ml PO TID potassium chloride [K-Tab] 20 mEq tablet extended release 10 meq PO DAILY Discontinued potassium chloride .Route Referrals / Follow Up: Denny Patrick DO [Med Staff - Active Staff] - Within 1 Month (Alcoholic cirrhosis with portal hypertension.) Care Physician,No Primary [Primary Care Provider] - NOT,DEFINED [Non-Staff] - Disposition Disposition (needs filled in before D/C Order can be placed): Home, Self Care Charges/Coding Visit Charges Inpatient E&M: 87475 Disch Hosp
--- NOTE | 2024-04-27 09:59 | PCM.HOSP.N ---
Hospitalist Note Physical exam: Patient is up at bedside. Nontoxic. No tremulousness. Head is atraumatic normocephalic. Extremities are without edema.
--- NOTE | 2024-04-27 10:40 | CASEMGMT ---
Patient discharging on Xifaxan. KAI TANG called [facility] retail pharmacy, copay is $1083.83. KAI TANG updated hospitalist and states it is ok for patient not to fill and to follow-up with GI. KAI TANG updated nursing who updated discharge instructions and patient.
[2024-04-27 10:43] VITALS: BP 135/95; PULSE 102; RESP 16; TEMP 36.9; O2SAT 100
--- NOTE | 2024-04-27 11:09 | PHA.DC.MR.R ---
Pharmacy [place] Med Reconciliation Pharmacy Service has performed discharge medication reconciliation for this patient. Medication education attempted, patient will not be filling Rifaximin due to cost. The patient's discharge medication list was reviewed for discrepancies and discrepancies were resolved. Medications at Discharge Home Medications alpha lipoic acid 600 mg capsule 600 mg PO BID supplement 04/20/24 amiodarone 200 mg tablet 200 mg PO BID heart rate 04/20/24 aspirin 81 mg tablet,delayed release (Ecotrin Low Strength) 81 mg PO DAILY antiplatelet 04/20/24 ferrous sulfate 325 mg (65 mg iron) tablet (FeroSul) 325 mg PO BID iron supplement 04/20/24 lactulose 10 gram/15 mL oral solution 30 ml PO TID ammonia 04/20/24 metoprolol tartrate 25 mg tablet 25 mg PO Q12H heart 04/20/24 potassium chloride 20 mEq tablet,extended release (K-Tab) 10 meq PO DAILY supplement 04/20/24 multivitamin 1 tab PO DAILY #30 tabs 04/27/24 rifaximin 550 mg tablet (Xifaxan) 550 mg PO BID #60 tabs 04/27/24
== END 2024-04-27 10:53 | disposition home or self-care (01) | DRG 897 ==
LOC: ED 21:44 → PCU 23:01 → ICU 23:53 → PCU 04-25 07:17
PROVIDERS: Internal Medicine; Internal Medicine Gastroenterology; Admitting Provider Internal Medicine; Emergency Provider Student in an Organized Health Care Education/Training Program
DX: F10.232 Alcohol dependence with withdrawal with perceptual disturbance (principal); K76.6 Portal hypertension; I48.92 Unspecified atrial flutter; D69.6 Thrombocytopenia, unspecified; K70.10 Alcoholic hepatitis without ascites; I48.0 Paroxysmal atrial fibrillation; K70.30 Alcoholic cirrhosis of liver without ascites; E87.6 Hypokalemia; F17.200 Nicotine dependence, unspecified, uncomplicated; E80.7 Disorder of bilirubin metabolism, unspecified; D72.819 Decreased white blood cell count, unspecified; M81.0 Age-related osteoporosis without current pathological fracture; Z86.718 Personal history of other venous thrombosis and embolism; E66.3 Overweight; Z68.27 Body mass index [BMI] 27.0-27.9, adult; R05.1 Acute cough; Y90.9 Presence of alcohol in blood, level not specified
CPT/HCPCS: 36415; 71045; 74177; 80048; 80053; 80074; 80076; 80307; 82077; 82140; 82390; 82525; 82728; 82784; 83516; 83540; 83550; 83690; 83735; 84100; 84165; 84443; 84484; 85025; 85610; 85652; 86140; 86225; 86235; 86255; 86256; 86334; 87633; 93005; 99284; J7030; J7040; J7050; Q9967; A4216

== ENCOUNTER → 2024-05-04 | Outpatient (CLI) | payer MEDICARE, SELFPAY ==
[2024-05-04 15:22] LABS: Absolute Lymphocyte Count 1.22 X10^3/uL (0.83-4.51); Basophil% 2.5 % (0-1); Eosinophil# 0.26 X10^3/uL; Eosinophils% 6.4 % (0-5); Hematocrit 41.3 % (40-54); Hemoglobin 13.7 g/dL (13.0-16.5); Lymphocyte # 1.22 X10^3/ul (0.83-4.51); Mean Corp Hgb Conc 33.2 g/dL (32-36); Mean Corpuscular Hgb 33.1 pg (27.0-32.0); Mean Corpuscular Volume 99.8 fL (80-94); Mean Platelet Vol. 10.4 fl (6.2-12.0); Monocyte# 0.45 X10^3/uL; Monocyte% 11.1 % (0-10); NRBC Flagged by Analyzer 0 % (0-5); Neutrophil # 2.03 X10^3/uL (2.7-7.7); Neutrophil % 49.8 % (47-70); Platelet Count 172 K/mm3 (150-450); RBC Distribution Width CV 16.5 % (11.6-14.6); RBC Distribution Width SD 61.2 fl (35.1-43.9); Red Blood Count 4.14 M/mm3 (4.6-6.2); White Blood Count 4.1 K/mm3 (4.4-11.0)
[2024-05-04 15:53] LABS: AST(SGOT) 43 U/L (15-37); Alanine Aminotransfer ALT/SGPT 58 U/L (16-61); Albumin, Serum 3.3 g/dL (3.2-5.0); Alkaline Phosphatase 86 U/L (45-117); Anion Gap 6 (5-15); BUN 13 mg/dL (7-18); BUN/Creat Ratio 12.7 RATIO (10-20); Calcium,Total 8.8 mg/dL (8.5-10.1); Chloride 108 mmol/L (98-107); Creatinine, Serum 1.02 mg/dL (0.70-1.30); EST Glomerular Filtration Rate 81 mL/min (>60); Est Glom Filt Rate - Afr Amer 98 mL/min (>60); Globulin 3.3 g/dL (2.2-4.2); Glucose 84 mg/dL (74-106); Protein, Total 6.6 g/dL (6.4-8.2); Sodium Level 139 mmol/L (136-145)
[2024-05-04 17:55] LABS: HIV - WCH Non-Reactive (Nonreactive); Syphilis Antibodies Non-reactive; Vitamin B12 1151 pg/mL (211-911)
[2024-05-06 04:08] LABS: GGTP 197 IU/L (0-65)
== END | disposition home or self-care (01) ==
LOC: BIMLAB 14:18
PROVIDERS: PCP Nurse Practitioner; Referring Provider Nurse Practitioner; Visit Provider Nurse Practitioner
DX: Z11.3 Encounter for screening for infections with a predominantly sexual mode of transmission (principal); K76.9 Liver disease, unspecified; R41.3 Other amnesia; B19.20 Unspecified viral hepatitis C without hepatic coma; D69.6 Thrombocytopenia, unspecified
CPT/HCPCS: 36415; 80053; 82607; 82977; 85025; 86703; 86780; 87491; 87591; 87661

== ENCOUNTER → 2024-05-22 | Outpatient (CLI) | payer MEDICARE, SELFPAY ==
--- NOTE | 2024-05-22 06:34 | MRI_ITS ---
STUDY: MRI BRAIN WITH AND WITHOUT CONTRAST REASON FOR EXAM: Male, 54 years old. short term memory less TECHNIQUE: Standardized multiplanar fat and water weighted pulse sequences were obtained. IV 20ml clariscan was administered for the contrast portion of the examination. COMPARISON: None. FINDINGS: Normal size of the ventricles and extra-axial spaces for the patient''s age. Normal white matter tracts of the supratentorial brain. There is no evidence for recent intracranial ischemia or other cause of cytotoxic edema on diffusion weighted imaging (DWI). Normal T2* images of the brain without demonstrated susceptibility artifact. There is no demonstrated hemosiderin stain. Normal bilateral basal ganglia. Normal thalami. There is no extra-axial fluid accumulation. Normal flow voids within the major intracranial circulation suggesting patency by spin echo criteria. Normal venous enhancement. There is no enhancing intra-axial or extra-axial abnormality. Normal sella turcica, pituitary gland, infundibular stalk, optic chiasm and hypothalamus. Normal tectal plate and pineal gland. Normal midbrain, kushal and medulla. Normal cerebellum. Normal basal cisterns. Normal bilateral temporal bones. Normal bilateral internal auditory canals. No demonstrated orbital abnormality, within the constraints of a routine brain study. Normal visualized paranasal sinuses. Normal calvarium and skull base. Normal visualized soft tissue structures. Normal visualized upper cervical spine. MRI/Brain W/WO Contrast IMPRESSION: Normal unenhanced and enhanced MRI of the brain. Electronically Signed: Chema Anand MD at 12:43 EDT ,
== END | disposition home or self-care (01) ==
PROVIDERS: PCP Nurse Practitioner; Referring Provider Nurse Practitioner; Visit Provider Nurse Practitioner
DX: R41.3 Other amnesia (principal)
CPT/HCPCS: 70553; A9575

== ENCOUNTER 2024-06-15 11:17 | Inpatient (IN) | payer MEDICARE, SELFPAY ==
[2024-06-15] VITALS (18 sets, daily range): BP systolic 99–148; BP diastolic 75–111; PULSE 51–170; RESP 15–23; TEMP 36.2–37.1; O2SAT 90–99; BMI 28.5; BMI 28.7
--- NOTE | 2024-06-15 13:25 | EKG12_ITS ---
Test Reason : DETOX Blood Pressure : / mmHG Vent. Rate : 165 BPM Atrial Rate : 366 BPM P-R Int : 000 ms QRS Dur : 086 ms QT Int : 246 ms P-R-T Axes : 000 -20 136 degrees QTc Int : 407 ms Critical Test Result: High HR Atrial flutter with variable A-V block Low voltage QRS Nonspecific ST and T wave abnormality Abnormal ECG Confirmed by Shiva Agudelo ([id number]), advertising editor FELISA SWEENEY ([id number]) on 06/17/2024 8:18:09 AM Referred By: Confirmed By:Shiva Agudelo
[2024-06-15] MEDS: Ondansetron 4 MG/2 ML Vial IV ×2 (13:36→15:15)
[2024-06-15] MEDS: LORazepam 2 MG/ML Syringe 1 MG IV (13:36)
[2024-06-15] MEDS: 0.9% Normal Saline (1000mL) 1,000 ML 1000 ML IV (13:36)
[2024-06-15 13:39] LABS: Bacteria 0 SEEN /hpf (None Seen); Mucous, Urine 0 SEEN /hpf (<or=2+); Squamous Epithelial Cells - UA 0 SEEN /hpf (0-5)
[2024-06-15] MEDS: Metoprolol Tartrate 5 MG/5 ML Vial IV ×3 (13:41→14:01)
[2024-06-15 13:43] LABS: Glucose, Dipstick Normal (Normal); Ketone-Dipstick 5 mg/dl (Negative); Leukocyte Esterase-Dipstick 25 /ul (Negative); Nitrite-Dipstick Positive (Negative); Occult Blood-Urine 25 /ul (Negative); Protein-Dipstick 30 mg/dl (Negative); Specific Gravity, Urine 1.015 (1.002-1.030); Urine Clarity Clear (Clear); Urine Urobilinogen 12 mg/dl (Normal); Urine pH 6.5 (5.0 - 8.0)
[2024-06-15 13:47] LABS: Absolute Lymphocyte Count 0.64 X10^3/uL (0.83-4.51); Absolute Neutrophil Count 2.5 X10^3/uL (2.0-7.7); Basophil# 0.03 X10^3/uL; Basophil% 0.8 % (0-1); Eosinophil# 0.01 X10^3/uL; Eosinophils% 0.3 % (0-5); Hematocrit 39.4 % (40-54); Hemoglobin 13.8 g/dL (13.0-16.5); Lymphocyte # 0.64 X10^3/ul (0.83-4.51); Mean Corpuscular Volume 94.3 fL (80-94); Mean Platelet Vol. 12.3 fl (6.2-12.0); Monocyte% 11.2 % (0-10); NRBC Flagged by Analyzer 0 % (0-5); Neutrophil # 2.47 X10^3/uL (2.7-7.7); Neutrophil % 69.4 % (47-70); POSITIVE COUNT YES; Platelet Count 33 K/mm3 (150-450); RBC Distribution Width CV 14.9 % (11.6-14.6); RBC Distribution Width SD 50.7 fl (35.1-43.9); Red Blood Count 4.18 M/mm3 (4.6-6.2); White Blood Count 3.6 K/mm3 (4.4-11.0)
[2024-06-15 13:48] LABS: Differential Indicated SCAN CRITERIA MET
[2024-06-15] MEDS: Amiodarone 200 MG Tablet PO (13:48)
[2024-06-15 13:51] LABS: International Normalized Ratio 1.6; Prothrombin Time (Protime)PT. 18.8 SECONDS (11.7-14.9)
[2024-06-15 13:52] LABS: Partial Thromboplast Time 33.2 Seconds (24.1-36.2)
--- NOTE | 2024-06-15 14:03 | RAD_ITS ---
STUDY: X-RAY CHEST REASON FOR EXAM: Male, 54 years old. Dyspnea TECHNIQUE: Single AP portable view of the chest. COMPARISON: Comparison is made with prior study dated April 24, 2024. FINDINGS: EKG electrodes are seen. The lungs are clear and expanded. There is no demonstrated pleural abnormality. Normal size heart. Normal mediastinum and ricardo. Normal visualized pulmonary arteries. There is atherosclerotic tortuosity of the aortic arch and descending thoracic aorta. There are diffuse degenerative changes of the visualized thoracic spine. Normal visualized ribs, clavicles, and shoulders. There is no demonstrated abnormality of the visualized soft tissue structures of the upper abdomen. RAD/Chest 1 View (Portable) IMPRESSION: The lungs are clear. Electronically Signed: Ambrosio Kline MD at 14:32 EDT ,
[2024-06-15 14:04] LABS: AST(SGOT) 117 U/L (15-37); Alanine Aminotransfer ALT/SGPT 62 U/L (16-61); Albumin, Serum 3.1 g/dL (3.2-5.0); Alkaline Phosphatase 150 U/L (45-117); Anion Gap 13 (5-15); BUN 7 mg/dL (7-18); BUN/Creat Ratio 5.7 RATIO (10-20); Bilirubin, Direct 2.17 mg/dL (0.00-0.30); Calcium,Total 8.8 mg/dL (8.5-10.1); Chloride 103 mmol/L (98-107); Creatinine, Serum 1.22 mg/dL (0.70-1.30); EST Glomerular Filtration Rate 66 mL/min (>60); Est Glom Filt Rate - Afr Amer 80 mL/min (>60); Estimated Creatinine Clearance 82.89 ml/min; Globulin 3.5 g/dL (2.2-4.2); Glucose 104 mg/dL (74-106); Lipase 30 U/L (13-75); Magnesium 1.7 mg/dL (1.6-2.6); Protein, Total 6.6 g/dL (6.4-8.2); Sodium Level 143 mmol/L (136-145); Troponin-I HS 60 pg/mL (3.0-78.0)
[2024-06-15 14:08] LABS: Color, Urine SEE COMMENT BELOW (Yellow); Urine Bilirubin Dipstick 3 mg/dL (Negative)
[2024-06-15 14:11] LABS: Red Blood Cells-Urine 5-10 SEEN /hpf (0-5)
[2024-06-15 14:12] LABS: White Blood Cells 5-10 SEEN /hpf (0-5)
[2024-06-15 14:27] LABS: Differential Comment SCANNED
[2024-06-15 14:28] LABS: Platelet Estimate MKD DEC (ADEQ)
[2024-06-15] MEDS: Potassium Chloride Oral Tablet 20 MEQ 40 MEQ PO (14:43)
[2024-06-15] MEDS: dilTIAZem 25 MG/5 ML Vial 20 MG IV BOLUS (14:43)
[2024-06-15] MEDS: Diltiazem 125 MG in Dextrose 5%-Water (100mL Bag) 100 ML IV (14:55)
--- NOTE | 2024-06-15 14:59 | CHAPLAIN ---
Type of Pastoral Visit ___ Initial Visit ___ Follow-up Visit ___ On-call Visit ___ General Patient Visit ___ Spiritual Assessment ___ Family Conference ___ Bereavement ___ Rapid Response ___ Code Blue ___ Other (describe below) Pastoral Care Referral From ___ Patient ___ Family ___ Nurse ___ Physician ___ Um Nurse ___ Sandblaster Stone ___ Other (describe below) Sacrament/Intervention ___ Active listening ___ Anointing ___ Mandaeism ___ Bereavement ___ Communion ___ Rajwinder exploration ___ ___ Life review ___ Prayer ___ Reconciliation ___ Sacrament of Sick ___ Supportive presence ___ Wedding ___ Other (describe below) Pastoral Comments during response to the ED, this patient was brought in by EMS and the personnel of EMS asked this dredge engineer to Please talk with him as he really needs that right now and he is wanting detox; pt remembers this dredge engineer from a recent admission for detox; sat with pt for a time while he waited to be seen; offered support and encouragement for continued help; offered to again see the patient after admission into a room; pt requested the follow up and support at this time
--- NOTE | 2024-06-15 16:11 | EX.ED.DYSGE1 ---
HPI History of Present Illness Chief Complaint: Substance Abuse Informant: patient and family Narrative Narrative: 54-year-old male presenting to the emergency room chief complaint of alcohol detox. Patient has a history of alcoholism and has had several hospitalizations for alcohol detox including withdrawal symptoms with DTs. Patient has a history of cirrhosis. He was sober for couple weeks and then began drinking again. Patient states he drinks between 2 and 4 mikes hard lemonade's per day. He has a history of atrial fibrillation is not currently on blood thinners. Noted history of esophageal varices and thrombocytopenia. He has not taken his medications today including amiodarone and metoprolol. Patient notes daily withdrawal symptoms including nausea vomiting anxiety diarrhea and tremor. [facility] Medical History History of cardioversion Portosystemic shunt, spontaneous History of deep vein thrombosis Overweight (BMI 25.0-29.9) Alcoholic cirrhosis Chronic alcohol abuse Hypokalemia Paroxysmal atrial flutter Encounter to establish care Bleeding esophageal varices Esophageal varices Presence of Watchman left atrial appendage closure device Alcohol abuse Osteoporosis Cirrhosis Smoker Irregular heart beat Atrial fibrillation Home Medications ?Medication ?Instructions ?Recorded ?Last Taken ?Type alpha lipoic acid 600 mg capsule 600 mg PO BID supplement #180 caps 05/05/24 Unknown Rx amiodarone 200 mg tablet 200 mg PO DAILY heart rate #90 tabs 05/05/24 Unknown Rx aspirin 81 mg tablet,delayed 81 mg PO DAILY antiplatelet #90 05/05/24 Unknown Rx release (Ecotrin Low Strength) tabs bumetanide 1 mg tablet 1 mg PO DAILY #90 tabs 05/05/24 Unknown Rx folic acid 1 mg tablet 1 mg PO DAILY #90 tabs 05/05/24 Unknown Rx lactulose 20 gram/30 mL oral 20 g (30 mL) PO TID PRN 05/05/24 Unknown Rx solution constipation/ high ammonia #1,200 mL metoprolol tartrate 25 mg tablet 25 mg PO Q12H heart #90 tabs 05/05/24 Unknown Rx potassium chloride 20 mEq 10 meq (1/2 x 20 mEq) PO DAILY 05/05/24 Unknown Rx tablet,extended release (K-Tab) supplement #90 tabs vitamin B complex 1 tab PO DAILY #30 tabs 05/05/24 Unknown Rx Allergy/AdvReac Type Severity Reaction Status Date / Time bee venom protein (honey Allergy Severe Anaphylaxis Verified 06/15/24 11:25 bee) (bee stings) propafenone Allergy Other Verified 05/19/24 10:00 Family History Other Alcoholism Arthritis Depression High cholesterol Hypertension Liver disease Severe allergy Surgical History History of colonoscopy History of cardiac catheterization H/O cardiac radiofrequency ablation History of radiofrequency ablation procedure for cardiac arrhythmia Social History adopted: No household members: family, none and other details: sister current occupational status: unemployed Smoking Status: Current every day smoker tobacco type: cigarettes details: alcohol cessation currently substance use type: does not use diet: other well-balanced diet: other details: weight watcher diet what type of physical activity do you participate in: none seatbelt use: always do you feel safe at home: Yes ROS ROS ED Constitutional Constitutional ED: Reports chills and sweats; Denies weight loss Eyes Eyes: Denies change in vision or diplopia ENT ENT ED: Reports rhinorrhea; Denies ear pain or sore throat Cardiovascular Cardiovascular: Reports palpitations and racing heartbeat; Denies chest pain or orthopnea Respiratory/Chest Respiratory/Chest: Denies cough, dyspnea or orthopnea Gastrointestinal Gastrointestinal: Reports diarrhea, nausea and vomiting; Denies abdominal pain Genitourinary Genitourinary ED: Denies dysuria, hematuria or urinary frequency Musculoskeletal Musculoskeletal: Denies arthralgias or myalgias Integumentary Denies abscess or rash Neurologic Neurologic: Denies headache(s) or weakness Psychiatric Psychiatric: Reports anxiety and depression; Denies suicidal ideation or suicidal thoughts Endocrine Endocrinology: Denies polydipsia, polyphagia or polyuria Allergic/Immunologic Allergic/Immunologic ED: Denies mouth swelling, tongue swelling or urticaria EXAM Physical Exam Const Vital Signs: 06/15/24 11:25 06/15/24 13:17 06/15/24 13:27 Temperature 97.2 F L 97.8 F 97.8 F Temperature Source Temporal Temporal Temporal Pulse Rate 51 L 168 H 170 H Respiratory Rate 16 20 H 20 H Blood Pressure 147/111 H 148/98 H 148/78 H Blood Pressure Mean 123 114 101 Blood Pressure Source Monitor Blood Pressure Position Semi-Fowlers Blood Pressure Location Left Arm Pulse Ox 96 99 99 Oxygen Delivery Method Room Air Room Air Room Air 06/15/24 14:55 06/15/24 15:00 06/15/24 15:18 Temperature 97.7 F L 98.8 F Temperature Source Temporal Temporal Pulse Rate 116 H 110 H 120 H Respiratory Rate 19 H 16 18 Blood Pressure 126/84 H 123/101 H 112/92 H Blood Pressure Mean 98 108 98 Blood Pressure Source Blood Pressure Position Blood Pressure Location Pulse Ox 98 98 Oxygen Delivery Method Room Air Room Air 06/15/24 15:31 06/15/24 16:00 Temperature 97.4 F L 97.8 F Temperature Source Temporal Pulse Rate 125 H 120 H Respiratory Rate 23 H 16 Blood Pressure 122/95 H 118/78 Blood Pressure Mean 104 91 Blood Pressure Source Blood Pressure Position Blood Pressure Location Pulse Ox 99 Oxygen Delivery Method Positive well nourished and well developed General Appearance ED: well developed HEENT Reports normocephalic, head/scalp atraumatic and moist mucous membranes Eyes PERRL and EOMs intact bilaterally General Eye ED: Yes scleral icterus Neck no lymphadenopathy, supple and no JVD Resp normal respiratory effort and clear to auscultation bilaterally Cardio no murmurs Rate: tachycardic Rhythm: abnormal rhythm irregularly irregular GI normal to inspection, nondistended, normoactive bowel sounds and non-tender Palpation: soft Back/Spine no CVA tenderness and normal ROM Extremity normal to inspection General Extremety ED: Negative for edema General Extremity: Negative for edema Neuro oriented x3 and CN's II-XII intact bilaterally Neuro Narrative: Patient has a tremor. Sensorium / Orientation: alert Motor Exam: strength 5/5 throughout Psych Mood & Affect: anxious; Negative for depressed or tearful Skin no rashes or lesions noted and no wounds MDM MDM MDM Narrative Medical decision making narrative: Differential diagnosis includes but not limited to decompensated liver failure A-fib with RVR alcohol withdrawal electrolyte abnormalities coagulation disorders bone marrow suppression Patient was given his oral amiodarone and IV metoprolol with minimal improvement in his A-fib with RVR which has been 160-180. He was given Cardizem and placed on the Cardizem drip. White count 3.6 hemoglobin 13.8 platelet count is only 33. His INR is 1.6. Potassium noted to be 3 received supplemental potassium. Patient received IV fluids Zofran nicotine patch. Liver enzymes show total bilirubin 4.8 direct bilirubin 2.17 AST 117 ALT 62 pneumonia level is 49. Urinalysis with no overt infection. Patient also received a dose of IV Ativan. His plan will be admission into hospital. History & Record Review Discussion w/independent historian: Patient and Family Additional record(s) reviewed:: Prior inpatient record, Prior outpatient record, Prior ED visit and Prior labs Lab Data Attestation: I reviewed the patient's lab results. Labs: Laboratory Results - last 24 hr 06/15/24 06/15/24 13:06 14:34 WBC 3.6 L RBC 4.18 L Hgb 13.8 Hct 39.4 L MCV 94.3 H MCH 33.0 H MCHC 35.0 RDW Std Deviation 50.7 H RDW Coeff of Asher 14.9 H Plt Count 33 L* MPV 12.3 H Immature Gran % (Auto) 0.300 Neut % (Auto) 69.4 Lymph % (Auto) 18.0 L [place] % (Auto) 11.2 H Eos % (Auto) 0.3 Baso % (Auto) 0.8 Absolute Neuts (auto) 2.5 Absolute Lymphs (auto) 0.64 L Nucleated RBC % 0 Differential Comment SCANNED Diff Path Review May foll Platelet Estimate MKD DEC PT 18.8 H INR 1.6 APTT 33.2 Sodium 143 Potassium 3.0 L Chloride 103 Carbon Dioxide 27.0 Anion Gap 13 BUN 7 Creatinine 1.22 Estim Creat Clear Calc 82.89 Est GFR (MDRD) Af Amer 80 Est GFR (MDRD) Non-Af 66 BUN/Creatinine Ratio 5.7 L Glucose 104 Calcium 8.8 Magnesium 1.7 Total Bilirubin 4.80 H Direct Bilirubin 2.17 H AST 117 H ALT 62 H Alkaline Phosphatase 150 H Ammonia 49.0 H Troponin I High Sens 60 Total Protein 6.6 Albumin 3.1 L Globulin 3.5 Lipase 30 Urine Color SEE COMMENT BELOW Urine Clarity Clear Urine pH 6.5 Ur Specific [place] 1.015 Urine Protein 30 H Urine Glucose (UA) Normal Urine Ketones 5 H Urine Occult Blood 25 H Urine Nitrite Positive H Urine Bilirubin 3 H Urine Urobilinogen 12 H Ur Leukocyte Esterase 25 H Urine RBC 5-10 SEEN Urine WBC 5-10 SEEN Ur Squamous Epith Cells 0 SEEN Urine Bacteria 0 SEEN Urine Mucus 0 SEEN Ethyl Alcohol 154.0 Radiography Diagnostic Testing: Clinical Impression(s) from Imaging Studies Chest X-Ray 06/15/24 14:03 IMPRESSION: The lungs are clear. Electronically Signed: Ambrosio Kline MD at 14:32 EDT Reading Location ID and State: [facility] / [place] , Service support , EKG Initial EKG: Attestation: I personally reviewed and interpreted this EKG as follows: Comments: Atrial fibrillation with ventricular rate of 165 bpm Discharge Plan Dx/Rx/DC Orders Clinical Impression: Alcohol use disorder, Thrombocytopenia, Cirrhosis, Atrial fibrillation with RVR, Tobacco use disorder, Alcohol withdrawal, Hypokalemia Disposition Disposition: Acute Care [facility]
--- NOTE | 2024-06-15 16:15 | PCM.HP.STD ---
HPI - General General Date of Service: 06/15/24 Chief Complaint: ETOH withdrawal and afib rvr HPI Narrative LUIS DU, is a 54 M with history of cirrhosis, esophageal varices, A-fib, hepatitis C, alcohol use disorder, tobacco use, neuropathy who presented to [facility] ED 06/15/2024 requesting alcohol detox but was also found to be in A-fib with RVR. Patient was refractory to IV metoprolol and amiodarone to be started on Cardizem drip with some improvement but remained tachycardic, also given a dose of Ativan and hospitalist contacted for admission. Patient sandra historian, was here for detox in April but has been drinking again, reports he has been ramping up the amount he has been drinking over the past several weeks but has been drinking a 12 pack of regular size beers per day for at least a week with last drink at 9 AM. Currently feeling shaky and nauseous. Endorses history of withdrawal seizures previously. Has had some abnormal colored urine but no burning, alternating between diarrhea and constipation has had some general abdominal pain when he is been drinking for the past 3 days with nothing making it better or worse. Reports he also feels very unsteady overall right now. Patient had difficulty with timelines but is possibly had some intermittent heart racing over the past week and has not taken his medicines for the past 3 days. Denies any chest pain or shortness of breath at this time. No cough, denies any other new focal or acute complaints [facility] Medical History History of cardioversion Portosystemic shunt, spontaneous History of deep vein thrombosis Overweight (BMI 25.0-29.9) Alcoholic cirrhosis Chronic alcohol abuse Hypokalemia Paroxysmal atrial flutter Encounter to establish care Bleeding esophageal varices Esophageal varices Presence of Watchman left atrial appendage closure device Alcohol abuse Osteoporosis Cirrhosis Smoker Irregular heart beat Atrial fibrillation Home Medications ?Medication ?Instructions ?Recorded ?Last Taken ?Type alpha lipoic acid 600 mg capsule 600 mg PO BID supplement #180 caps 05/05/24 Unknown Rx amiodarone 200 mg tablet 200 mg PO DAILY heart rate #90 tabs 05/05/24 Unknown Rx aspirin 81 mg tablet,delayed 81 mg PO DAILY antiplatelet #90 05/05/24 Unknown Rx release (Ecotrin Low Strength) tabs bumetanide 1 mg tablet 1 mg PO DAILY #90 tabs 05/05/24 Unknown Rx folic acid 1 mg tablet 1 mg PO DAILY #90 tabs 05/05/24 Unknown Rx lactulose 20 gram/30 mL oral 20 g (30 mL) PO TID PRN 05/05/24 Unknown Rx solution constipation/ high ammonia #1,200 mL metoprolol tartrate 25 mg tablet 25 mg PO Q12H heart #90 tabs 05/05/24 Unknown Rx potassium chloride 20 mEq 10 meq (1/2 x 20 mEq) PO DAILY 05/05/24 Unknown Rx tablet,extended release (K-Tab) supplement #90 tabs vitamin B complex 1 tab PO DAILY #30 tabs 05/05/24 Unknown Rx Allergy/AdvReac Type Severity Reaction Status Date / Time bee venom protein (honey Allergy Severe Anaphylaxis Verified 06/15/24 11:25 bee) (bee stings) propafenone Allergy Other Verified 05/19/24 10:00 Family History Other Alcoholism Arthritis Depression High cholesterol Hypertension Liver disease Severe allergy Surgical History History of colonoscopy History of cardiac catheterization H/O cardiac radiofrequency ablation History of radiofrequency ablation procedure for cardiac arrhythmia Social History adopted: No household members: family, none and other details: sister current occupational status: unemployed Smoking Status: Current every day smoker tobacco type: cigarettes details: alcohol cessation currently substance use type: does not use diet: other well-balanced diet: other details: weight watcher diet what type of physical activity do you participate in: none seatbelt use: always do you feel safe at home: Yes ROS ROS Narrative General: Denies fever/chills HENT: Denies headache, some nasal congestion, denies sore throat EYES: Denies changes in vision Resp: Denies cough, denies shortness of breath Cardiac: Denies chest pain, some intermittent racing feeling in his chest over the past week GI: Some centralized abdominal pain with drinking over the past 3 days, alternates with diarrhea, constipation, nausea, vomiting : Dark urine with no burning Extremity: Denies swelling MSK: Denies weakness Neuro: Chronic numbness and tingling in feet, overall just feels unsteady Heme: Denies any bleeding or bruising Skin: Denies rashes Psychiatric: No complaints voiced Vital Signs Vital Signs Vital Signs: 06/15/24 11:25 06/15/24 13:17 06/15/24 13:27 Temperature 97.2 F L 97.8 F 97.8 F Temperature Source Temporal Temporal Temporal Pulse Rate 51 L 168 H 170 H Respiratory Rate 16 20 H 20 H Blood Pressure 147/111 H 148/98 H 148/78 H Blood Pressure Mean 123 114 101 Blood Pressure Source Monitor Blood Pressure Position Semi-Fowlers Blood Pressure Location Left Arm Pulse Ox 96 99 99 Oxygen Delivery Method Room Air Room Air Room Air 06/15/24 14:55 06/15/24 15:00 06/15/24 15:18 Temperature 97.7 F L 98.8 F Temperature Source Temporal Temporal Pulse Rate 116 H 110 H 120 H Respiratory Rate 19 H 16 18 Blood Pressure 126/84 H 123/101 H 112/92 H Blood Pressure Mean 98 108 98 Blood Pressure Source Blood Pressure Position Blood Pressure Location Pulse Ox 98 98 Oxygen Delivery Method Room Air Room Air 06/15/24 15:31 06/15/24 16:00 Temperature 97.4 F L 97.8 F Temperature Source Temporal Pulse Rate 125 H 120 H Respiratory Rate 23 H 16 Blood Pressure 122/95 H 118/78 Blood Pressure Mean 104 91 Blood Pressure Source Blood Pressure Position Blood Pressure Location Pulse Ox 99 Oxygen Delivery Method Weight Weight: 95.254 kg Body Mass Index (BMI) 28.5 Physical Exam Narrative General: Alert, difficulty with consistent history HEENT: Atraumatic, normocephalic Eyes: Anicteric, normal conjunctiva, extraocular movements grossly intact Neck: Supple Respiratory: Clear to auscultation bilaterally, normal respiratory effort Cardiovascular: mildly tachycardic, irregularly irregular GI: Soft, nontender, nondistended Extremities: No edema Musculoskeletal: Moving all extremities Neuro: No overt focal neurological deficits, does have some shaking in outstretched hands Skin: No rashes appreciated Psych: Cooperative Results Lab / Micro Data 06/15/24 13:06 06/15/24 13:06 Labs: Laboratory Results - last 24 hr 06/15/24 13:06: WBC 3.6 L, RBC 4.18 L, Hgb 13.8, Hct 39.4 L, MCV 94.3 H, MCH 33.0 H, MCHC 35.0, RDW Std Deviation 50.7 H, RDW Coeff of Asher 14.9 H, Plt Count 33 L*, MPV 12.3 H, Immature Gran % (Auto) 0.300, Neut % (Auto) 69.4, Lymph % (Auto) 18.0 L, [place] % (Auto) 11.2 H, Eos % (Auto) 0.3, Baso % (Auto) 0.8, Absolute Neuts (auto) 2.5, Absolute Lymphs (auto) 0.64 L, Nucleated RBC % 0, Differential Comment SCANNED, Diff Path Review February, Platelet Estimate MKD DEC, PT 18.8 H, INR 1.6, APTT 33.2, Sodium 143, Potassium 3.0 L, Chloride 103, Carbon Dioxide 27.0, Anion Gap 13, BUN 7, Creatinine 1.22, Estim Creat Clear Calc 82.89, Est GFR (MDRD) Af Amer 80, Est GFR (MDRD) Non-Af 66, BUN/Creatinine Ratio 5.7 L, Glucose 104, Calcium 8.8, Magnesium 1.7, Total Bilirubin 4.80 H, Direct Bilirubin 2.17 H, AST 117 H, ALT 62 H, Alkaline Phosphatase 150 H, Troponin I High Sens 60, Total Protein 6.6, Albumin 3.1 L, Globulin 3.5, Lipase 30, Urine Color SEE COMMENT BELOW, Urine Clarity Clear, Urine pH 6.5, Ur Specific [place] 1.015, Urine Protein 30 H, Urine Glucose (UA) Normal, Urine Ketones 5 H, Urine Occult Blood 25 H, Urine Nitrite Positive H, Urine Bilirubin 3 H, Urine Urobilinogen 12 H, Ur Leukocyte Esterase 25 H, Urine RBC 5-10 SEEN, Urine WBC 5-10 SEEN, Ur Squamous Epith Cells 0 SEEN, Urine Bacteria 0 SEEN, Urine Mucus 0 SEEN, Ethyl Alcohol 154.0 06/15/24 14:34: Ammonia 49.0 H Imaging Radiology Impression Chest X-Ray 06/15/24 14:03 IMPRESSION: The lungs are clear. Electronically Signed: Ambrosio Kline MD at 14:32 EDT , Assessment & Plan Assessment/Plan (1) Alcohol withdrawal: (2) Atrial fibrillation with RVR: PLAN: Plan #afib w/ rvr -On Cardizem drip -Suspect this is largely due to medication noncompliance -Resume metoprolol and amiodarone -Replace electrolytes -No blood thinners given platelets of 33 -Will obtain echo -TSH last month within normal limits #Alcohol use disorder with history of alcohol withdrawal seizures - We will begin CIWA every 4 for 24 hours, then every 6 for 24 hours, then every 12 until discharge -Will begin phenobarbital taper -Gabapentin 300 mg every 8 as needed -Will start Bentyl and hydroxyzine as needed as well as loperamide as needed -Trazodone 100 mg p.o. nightly as needed sleep -Begin thiamine and folic acid supplementation -Zofran as needed for nausea -Case management consult to assist with discharge planning -EtOH over 100 -Denies substance use # Elevated liver function in setting of history of cirrhosis and esophageal varices and elevated ammonia -Continue home lactulose -Alcohol detox -Repeat liver function in the a.m. # Thrombocytopenia -Suspect due to chronic alcohol use -Hold anticoagulation, hold aspirin #Tobacco use -Advise cessation -Nicotine replacement available if desired # Hypokalemia -Replaced #DVT ppx: SCDs Oralia Warner MD Time spent in the patient's overall evaluation,decision-making process, review of diagnostic data, adjustment of management, discussion with other providers, nursing nursing and ancillary staff involved in patient's care documentation, 56 minutes Charges/Coding Visit Charges Inpatient E&M: 19968 Init Hosp L2
--- NOTE | 2024-06-15 17:40 | ECHOD_ITS ---
Reason For Study: ATRIAL FIB-FLUTTER Procedure This was a 2D Doppler, Color Flow transthoracic echocardiogram. Exam performed portable in patient room. Left Ventricle Mild concentric left ventricular hypertrophy. Normal LV size. The left ventricular ejection fraction is 45 %. Unable to assess diastolic dysfunction due to arrhythmia. Right Ventricle Normal right ventricle. Atria There is mild biatrial dilatation. Mitral Valve Mild-Moderate (1-2+) mitral valve insufficiency. Tricuspid Valve Mild tricuspid valve insufficiency. Right ventricular systolic pressure estimated to be 46 mmHg. Aortic Valve Trisinus/trileaflet aortic valve. Pulmonic Valve The pulmonic valve is not well visualized. Great Vessels Normal sized aortic root. Pericardium/Pleural No pericardial effusion. MMode/2D Measurements & Calculations LVIDd: 4.8 cm IVSd: 1.6 cm Ao root diam: 3.3 cm LVIDs: 3.5 cm LVPWd: 1.6 cm RVDd: 3.9 cm FS: 27.9 % LAV(MOD-bp): 57.0 ml LVAd ap4: 28.5 cm2 SV(MOD-sp4): 35.2 ml LAV(MOD-bp) Indexed: 26.1 ml/m2 LVLd ap4: 8.1 cm LAV(MOD-sp2): 48.8 ml EDV(MOD-sp4): 83.9 ml LAV(MOD-sp4): 55.9 ml EDV(sp4-el): 85.9 ml LVAs ap4: 20.3 cm2 LVLs ap4: 7.2 cm ESV(MOD-sp4): 48.7 ml ESV(sp4-el): 48.7 ml EF(MOD-sp4): 42.0 % EF(sp4-el): 43.3 % SV(sp4-el): 37.2 ml LA A4 area: 22.3 cm2 LA dimension(2D): 3.9 cm RA A4 area: 22.3 cm2 TAPSE: 1.9 cm Doppler Measurements & Calculations MV E max artemio: 93.8 cm/sec Ao V2 max: 104.3 cm/sec LV V1 max: 87.7 cm/sec Ao max P.4 mmHg LV V1 max P.1 mmHg PA V2 max: 61.3 cm/sec TR max artemio: 280.1 cm/sec TR max P.4 mmHg ECHO/Echo Complete Interpretation Summary Mild concentric left ventricular hypertrophy. The left ventricular ejection fraction is 45 %. Unable to assess diastolic dysfunction due to arrhythmia. There is mild biatrial dilatation. Mild-Moderate (1-2+) mitral valve insufficiency. Mild tricuspid valve insufficiency. Right ventricular systolic pressure estimated to be 46 mmHg. Ordering Physician: Oralia Warner Referring Physician: OLENA HALL Performed By: Sammi Nova RDCS
[2024-06-15] MEDS: Magnesium Sulfate 4gm/100mL 4 GM/100 ML IV.SOLN. IV (18:31)
[2024-06-15] MEDS: 0.9% Normal Saline (1000mL) 1,000 ML 100 ML IV (18:36)
[2024-06-15] MEDS: Phenobarbital 32.4 MG Tablet PO ×2 (18:41→21:51)
[2024-06-15] MEDS: hydrOXYzine PAM 25 MG Capsule 50 MG PO (20:34)
[2024-06-15] MEDS: Metoprolol Tartrate 25 MG Tablet PO (20:35)
[2024-06-15] MEDS: traZODone 100 MG Tablet PO (21:52)
[2024-06-16] VITALS (17 sets, daily range): BP systolic 88–129; BP diastolic 63–90; PULSE 69–112; RESP 13–20; TEMP 36.7–37; O2SAT 91–99
[2024-06-16] MEDS: Diltiazem 125 MG in Dextrose 5%-Water (100mL Bag) 100 ML 15 MG IV (00:44)
[2024-06-16] MEDS: Phenobarbital 32.4 MG Tablet PO ×6 (02:11→22:01)
[2024-06-16] MEDS: 0.9% Normal Saline (1000mL) 1,000 ML 100 ML IV (04:13)
[2024-06-16 08:31] LABS: International Normalized Ratio 1.7; Prothrombin Time (Protime)PT. 19.9 SECONDS (11.7-14.9)
[2024-06-16] MEDS: Cyanocobalamin 500 MCG Tablet 1000 MCG PO (09:13)
[2024-06-16] MEDS: Gabapentin 300 MG Capsule PO (09:13)
[2024-06-16] MEDS: Thiamine Hydrochloride 100 MG Tablet PO (09:13)
[2024-06-16] MEDS: Amiodarone 200 MG Tablet PO (09:14)
[2024-06-16] MEDS: Metoprolol Tartrate 25 MG Tablet PO ×2 (09:14→22:01)
[2024-06-16] MEDS: Potassium Chloride Oral Tablet 10 MEQ PO (09:14)
[2024-06-16] MEDS: Folic Acid 1 MG Tablet PO (09:14)
[2024-06-16] MEDS: Diltiazem 125 MG in Dextrose 5%-Water (100mL Bag) 100 ML IV (10:08)
[2024-06-16 11:30] LABS: Anion Gap 10 (5-15); BUN 8 mg/dL (7-18); BUN/Creat Ratio 7.5 RATIO (10-20); Calcium,Total 8.2 mg/dL (8.5-10.1); Chloride 104 mmol/L (98-107); Creatinine, Serum 1.06 mg/dL (0.70-1.30); EST Glomerular Filtration Rate 77 mL/min (>60); Est Glom Filt Rate - Afr Amer 94 mL/min (>60); Estimated Creatinine Clearance 95.81 ml/min; Glucose 98 mg/dL (74-106); Magnesium 2.3 mg/dL (1.6-2.6); Potassium 2.8 mmol/L (3.5-5.1); Sodium Level 140 mmol/L (136-145)
[2024-06-16 11:34] LABS: Cholesterol 112 mg/dL (200); High Density Lipoprotein 61 mg/dL; Triglycerides 125 mg/dL; Very Low Density Lipoprotein 25 mg/dL (5-40)
--- NOTE | 2024-06-16 12:49 | ADDICTION ---
Addendum entered by Gissel Andrea 06/19/24 11:13: Pt's appointment has been rescheduled for SaturdayJune 24 at 11:00am. Addendum entered by Gissel Andrea 06/17/24 13:28: Pt has an appointment at [facility] Saturday at 9am with Psychologist Maru Jim, from [facility]. Original Note: This information writer met with PT to conduct ASAM, MSE, AUDIT, DUDIT assessments and to plan for d/c. PT A+Ox4 and participated actively. All assessments completed and placed in PT's chart. PT plans to f/u with [facility] for intensive outpatient treatment services. Pt did not indicate a need for transportation upon discharge.
[2024-06-16] MEDS: Potassium Chloride 10mEq/100mL 10 MEQ/100 ML IV.SOLN. 100 MEQ IV BOLUS ×4 (12:55→16:49)
[2024-06-16] MEDS: Potassium Chloride Oral Tablet 20 MEQ 40 MEQ PO (13:00)
[2024-06-16 13:50] LABS: Pathologist Review Reviewed
--- NOTE | 2024-06-16 15:14 | PN_ITS ---
Subjective Subjective Patient seen and examined. He looked well. He had no active complaints. Review of symptoms otherwise negative. He was in A-fib with RVR but heart rate was now better controlled. Objective Data Objective Data Vital Signs: Vital Signs Temp Pulse Resp BP Pulse Ox O2 Del Method O2 Flow Rate 98.2 F 92 18 129/82 H 92 Room Air 2 06/16/24 13:00 06/16/24 13:00 06/16/24 13:00 06/16/24 13:00 06/16/24 13:00 06/16/24 13:00 06/16/24 05:00 Oxygen Flow Rate (L/min) 2 Oxygen Delivery Method Room Air Weight: 212 lb Body Mass Index (BMI) 28.7 Intake & Output: Intake and Output for Last 24 Hours 06/14/24 06/15/24 06/16/24 23:59 23:59 23:59 Intake Total 1200.58 / 1515.58 2834.42 / 2834.42 Output Total 500 / 500 Balance 1200.58 / 1265.58 2334.42 / 2334.42 Lab / Micro Data 06/15/24 13:06 06/16/24 06:28 Labs: Laboratory Results - last 24 hr 06/15/24 13:06: Diff Path Review Reviewed 06/16/24 06:28: PT 19.9 H, INR 1.7, Sodium 140, Potassium 2.8 L, Chloride 104, Carbon Dioxide 26.0, Anion Gap 10, BUN 8, Creatinine 1.06, Estim Creat Clear Calc 95.81, Est GFR (MDRD) Af Amer 94, Est GFR (MDRD) Non-Af 77, BUN/Creatinine Ratio 7.5 L, Glucose 98, Calcium 8.2 L, Magnesium 2.3, Triglycerides 125, Cholesterol 112, LDL Cholesterol 26, VLDL Cholesterol 25, HDL Cholesterol 61 Physical Exam Const alert, oriented x3, no apparent distress and well nourished General Appearance: cooperative and well developed HEENT normocephalic, head/scalp atraumatic, moist oral mucous membranes and oropharynx normal Eyes PERRL and EOMs intact bilaterally Neck no lymphadenopathy and supple Lymph Lymphatic: no lymphadenopathy noted and no lymphedema noted Resp normal respiratory effort, normal air movement and clear to auscultation bilaterally Cardio S1 normal heart sound, S2 normal heart sound and no murmurs Cardio Narrative: afib, rate control is improving GI normal to inspection, nondistended, normoactive bowel sounds, soft to palpation, non-tender and non-distended Extremity normal capillary refill, no clubbing, cyanosis or edema and no calf tenderness General Extremity: no tenderness to palpation of joints or extremities Skin General Skin Exam: no breakdown Neuro CN's II-XII intact bilaterally, no focal motor deficits, no sensory deficits noted and deep tendon reflexes 2+ bilaterally Motor Exam: strength 5/5 throughout Psych thought process normal, cooperative and affect normal Appearance: appropriate Assessment & Plan Assessment/Plan (1) Atrial fibrillation with RVR: (2) Alcohol withdrawal: PLAN: Plan #Afib with RVR * On Cardizem drip. Heart rate is now better controlled and down in the high 90s. * Will wean off of Cardizem drip and resume oral meds-Metoprolol and amiodarone * Has chronic thrombocytopenia so not anticoagulated. 2D echo ordered and pending. * TSH within normal limits. #Acute alcohol withdrawal * Currently on alcohol drawl protocol with phenobarbital. Adjunctive meds for symptomatic relief. * States he has not drank in about 4 days. He states his withdrawal symptoms usually start on the fourth day and today is the third day. Thiamine, folic acid and Multivites. * Monitor CIWA score. * #History of cirrhosis and esophageal varices with elevated ammonia * On lactulose. Will continue. Monitor liver function. * #Nicotine dependence: counseled to quit. Nicotine patch 21mg daily #Hypokalemia: Potassium was 2.8 today. Will replace aggressively and trend. Magnesium today is 2.3. #Thrombocytopenia: Platelets were 33. This is chronic and likely due to alcohol use disorder. Will trend. DVT prophylaxis: SCDs. No anticoagulation due to thrombocytopenia Charges/Coding Visit Charges Inpatient E&M: 35657 Subs Hosp L3
--- NOTE | 2024-06-16 15:51 | CHAPLAIN ---
Type of Pastoral Visit ___ Initial Visit _x__ Follow-up Visit ___ On-call Visit ___ General Patient Visit ___ Spiritual Assessment ___ Family Conference ___ Bereavement ___ Rapid Response ___ Code Blue ___ Other (describe below) Pastoral Care Referral From _x__ Patient ___ Family ___ Nurse ___ Physician ___ Tetryl Boiling Tub Operator ___ Pearler ___ Other (describe below) Sacrament/Intervention _x__ Active listening ___ Anointing ___ Confucianism ___ Bereavement ___ Communion _x__ Rajwinder exploration ___ _x__ Life review _x__ Prayer ___ Reconciliation ___ Sacrament of Sick _x__ Supportive presence ___ Wedding ___ Other (describe below) Pastoral Comments patient was seen yesterday in ED and was promised this follow up visit for today; pt had just met with [facility] counselor and is establishing a plan for his release and follow up care; pt has had some heart tests as well due to his history of heart issues; pt is alert but also a bit shaky; RN came to give some meds at this time too; pt is open to talk and gives some history of self; pt looks back at beginning of his drinking right after of his mother stating I was drunk for a whole year; pt acknowledges this and other issues identified and unidentified that should be processed and resolved; pt is open to spiritual care and help; he makes the comment I need to process these things and then look to God; pt is pleasant during the visit; pt welcomes a prayer when offered that for support; pt also asks this thinner sprayer about his life and how are you doing?
[2024-06-16] MEDS: traZODone 100 MG Tablet PO (22:02)
[2024-06-16] MEDS: 0.9% Saline Lock 10 ML Syringe IV (22:03)
[2024-06-17] VITALS (8 sets, daily range): BP systolic 90–140; BP diastolic 55–89; PULSE 110–140; RESP 15–18; TEMP 36.5–36.9; O2SAT 96–99
[2024-06-17] MEDS: Phenobarbital 32.4 MG Tablet PO ×6 (02:15→22:07)
[2024-06-17] MEDS: Gabapentin 300 MG Capsule PO (04:02)
[2024-06-17] MEDS: hydrOXYzine PAM 25 MG Capsule 50 MG PO ×4 (05:13→17:39)
[2024-06-17] MEDS: Amiodarone 200 MG Tablet PO (06:17)
[2024-06-17] MEDS: Metoprolol Tartrate 25 MG Tablet PO ×2 (06:17→22:06)
[2024-06-17 06:51] LABS: Anion Gap 7 (5-15); BUN 8 mg/dL (7-18); BUN/Creat Ratio 7.3 RATIO (10-20); Calcium,Total 9.2 mg/dL (8.5-10.1); Chloride 108 mmol/L (98-107); EST Glomerular Filtration Rate 74 mL/min (>60); Est Glom Filt Rate - Afr Amer 90 mL/min (>60); Estimated Creatinine Clearance 92.32 ml/min; Glucose 98 mg/dL (74-106); Magnesium 1.7 mg/dL (1.6-2.6); Potassium 3.7 mmol/L (3.5-5.1); Sodium Level 139 mmol/L (136-145)
[2024-06-17] MEDS: Folic Acid 1 MG Tablet PO (09:26)
[2024-06-17] MEDS: Potassium Chloride Oral Tablet 10 MEQ PO (09:26)
[2024-06-17] MEDS: Thiamine Hydrochloride 100 MG Tablet PO (09:26)
[2024-06-17] MEDS: Cyanocobalamin 500 MCG Tablet 1000 MCG PO (09:26)
--- NOTE | 2024-06-17 14:14 | PN.HOSP_ITS ---
Reason for Visit Reason for Visit: Diagnoses Alcohol use, unspecified with withdrawal, unspecified (06/15/24) Unspecified atrial fibrillation (06/15/24) Subjective Subjective Asking about why he can do his activities of daily living he is upset with nursing they are infringing upon his rights by having a chair and bed alert go off whenever he tries to stand. Discussed with nursing, she had noted relating to her that he was hallucinating and also had been stumbling though no falls. Objective Data Objective Data Vital Signs: Vital Signs Temp Pulse Resp BP Pulse Ox O2 Del Method O2 Flow Rate 36.7 C 115 H 16 104/74 96 Room Air 2 06/17/24 11:43 06/17/24 11:43 06/17/24 11:43 06/17/24 11:43 06/17/24 11:43 06/17/24 11:43 06/16/24 05:00 Oxygen Flow Rate (L/min) 2 Oxygen Delivery Method Room Air Weight: 96.162 kg Body Mass Index (BMI) 28.7 Intake & Output: Intake and Output for Last 24 Hours 06/15/24 06/16/24 06/17/24 23:59 23:59 23:59 Intake Total 1200.58 / 1515.58 3534.42 / 3534.42 400 / 400 Output Total 500 / 500 Balance 1200.58 / 1265.58 3034.42 / 3034.42 400 / 400 Lab / Micro Data 06/15/24 13:06 06/17/24 05:30 Labs: Laboratory Results - last 24 hr 06/17/24 05:30: Sodium 139, Potassium 3.7, Chloride 108 H, Carbon Dioxide 24.0, Anion Gap 7, BUN 8, Creatinine 1.10, Estim Creat Clear Calc 92.32, Est GFR (MDRD) Af Amer 90, Est GFR (MDRD) Non-Af 74, BUN/Creatinine Ratio 7.3 L, Glucose 98, Calcium 9.2, Magnesium 1.7 Radiography Diagnostic Testing: Radiology Impression Echocardiogram 06/15/24 17:40 Interpretation Summary Mild concentric left ventricular hypertrophy. The left ventricular ejection fraction is 45 %. Unable to assess diastolic dysfunction due to arrhythmia. There is mild biatrial dilatation. Mild-Moderate (1-2+) mitral valve insufficiency. Mild tricuspid valve insufficiency. Right ventricular systolic pressure estimated to be 46 mmHg. Ordering Physician: Oralia Warner Referring Physician: OLENA HALL Performed By: Sammi Nova RDCS Physical Exam Const Constitutional Narrative: Initially upon first arrival, the patient was very eloquent each but also, the longer spoke with him, show that he was acting a bit paranoid. With him focusing on his rights and how he is being held here against his will. He did have tremulousness in his upper extremities. HEENT head/scalp atraumatic and moist oral mucous membranes Assessment & Plan Assessment/Plan (1) Atrial fibrillation with RVR: (2) Alcohol withdrawal: PLAN: Plan Afib with RVR * Was on on Cardizem drip. Heart rate is now controlled. * Patient not on anticoagulation due to chronic thrombocytopenia * Echocardiogram performed and shows an EF of 45%. Right checkered systolic pressure 46 mmHg. No baseline echocardiogram to compare to. Acute alcohol withdrawal * Appears to be worsening. On phenobarbital taper. Will add lorazepam as needed. If continues to de-escalate, patient may need dexmedetomidine drip and ICU placement. * Thiamine and folate * Patient seen addiction medicine and has an appointment at [facility] on the at 9 AM. Paranoia * Likely due to the alcohol withdrawal. Patient feeling and his rights are being infringe upon will understand that he is here for alcohol withdrawal. I did explain to him with the nurse told me about his unsteadiness Colidrops. He did seem to comprehend that did not have explanation but I did tell him that things could potentially get worse so his care accordingly. But I told him that we cannot let him get up being unstable and for falls. He expressed understanding. Though I would not be surprised, that the patient may not recollect any of this conversation particularly if he gets worse Alcoholic cirrhosis * Continue lactulose. Follow-up with gastroenterology as outpatient. DVT prophylaxis: SCDs. Chemical prophylaxis contraindicated given the patient's thrombocytopenia. Greater than 35 minutes of which greater than 50% time was discussing with the patient, listening, discussing with the nurse about her concerns, discussing those concerns with patient indication for bed to chair monitors the risk of falls. Charges/Coding Visit Charges Inpatient E&M: 52680 Subs Hosp L3
--- NOTE | 2024-06-17 16:04 | CASEMGMT ---
BINDU received a call from patient's sister Barbara Chester. asked about d/c plan for patient. BINDU notified that Lizandro [facility] personnel specialist met with patient and worked on a d/c plan. asked if Lizandro could call her. BINDU told that BINDU can pass along this message to Lizandro tomorrow as she is gone for the day. (Barbara Chester [phone]) Cynthia Guerrero [employer] BOZENA
[2024-06-18] VITALS (8 sets, daily range): BP systolic 92–132; BP diastolic 77–91; PULSE 107–110; RESP 16–18; TEMP 36.6–37.3; O2SAT 95–99
[2024-06-18] MEDS: traZODone 100 MG Tablet PO (00:39)
[2024-06-18] MEDS: Gabapentin 300 MG Capsule PO (00:39)
[2024-06-18] MEDS: Phenobarbital 32.4 MG Tablet PO ×4 (01:35→19:13)
[2024-06-18] MEDS: hydrOXYzine PAM 25 MG Capsule 50 MG PO ×2 (03:35→10:58)
[2024-06-18] MEDS: Cyanocobalamin 500 MCG Tablet 1000 MCG PO (08:11)
[2024-06-18] MEDS: Folic Acid 1 MG Tablet PO (08:11)
[2024-06-18] MEDS: Thiamine Hydrochloride 100 MG Tablet PO (08:11)
--- NOTE | 2024-06-18 09:27 | PCM.PN.HOSP ---
Reason for Visit Reason for Visit: Diagnoses Alcohol use, unspecified with withdrawal, unspecified (06/15/24) Unspecified atrial fibrillation (06/15/24) Subjective Subjective Talking about surgeries for his back and how he is trying to coordinate therapy and surgeries at [facility]. Objective Data Objective Data Vital Signs: Vital Signs Temp Pulse Resp BP Pulse Ox O2 Del Method O2 Flow Rate 36.9 C 107 H 16 121/91 H 98 Room Air 2 06/18/24 08:07 06/18/24 08:07 06/18/24 08:07 06/18/24 08:07 06/18/24 08:07 06/18/24 08:21 06/16/24 05:00 Oxygen Flow Rate (L/min) 2 Oxygen Delivery Method Room Air Weight: 96.162 kg Body Mass Index (BMI) 28.7 Intake & Output: Intake and Output for Last 24 Hours 06/16/24 06/17/24 06/18/24 23:59 23:59 23:59 Intake Total 3534.42 / 3534.42 400 / 760 720 / 720 Output Total 500 / 500 Balance 3034.42 / 3034.42 400 / 760 720 / 720 Lab / Micro Data 06/15/24 13:06 06/17/24 05:30 Radiography Diagnostic Testing: Radiology Impression Echocardiogram 06/15/24 17:40 Interpretation Summary Mild concentric left ventricular hypertrophy. The left ventricular ejection fraction is 45 %. Unable to assess diastolic dysfunction due to arrhythmia. There is mild biatrial dilatation. Mild-Moderate (1-2+) mitral valve insufficiency. Mild tricuspid valve insufficiency. Right ventricular systolic pressure estimated to be 46 mmHg. Ordering Physician: Oralia Warner Referring Physician: OLENA HALL Performed By: Sammi Nova RDCS Physical Exam Const Constitutional Narrative: Despite the patient's Eliquis, he appears more confused today. Talking about having surgery and coordinating her rehab here. When pin down to ask more specific questions. The spine surgeon he was going to see, he was said that he and his sister are corroborating on that. Appears more disheveled today. HEENT head/scalp atraumatic Resp normal respiratory effort and no retractions Neuro Sensorium / Orientation: awake Assessment & Plan Assessment/Plan (1) Atrial fibrillation with RVR: (2) Alcohol withdrawal: PLAN: Plan Afib with RVR Was on on Cardizem drip. Heart rate is now controlled. Patient not on anticoagulation due to chronic thrombocytopenia Echocardiogram performed and shows an EF of 45%. Right checkered systolic pressure 46 mmHg. No baseline echocardiogram to compare to. Acute alcohol withdrawal Appears to be worsening. On phenobarbital taper. Will add lorazepam as needed. If continues to de-escalate, patient may need dexmedetomidine drip and ICU placement. Thiamine and folate Patient seen addiction medicine and has an appointment at [facility] on the at 9 AM, discussed with addiction medicine I do not feel that he is can be able to make that appointment is still going through active alcohol withdrawal and actively getting worse. This will need to be rescheduled for later point. Paranoia Ongoing but more I think this is hallucinations at this point in time. Likely due to the alcohol withdrawal. Patient feeling and his rights are being infringe upon will understand that he is here for alcohol withdrawal. I did explain to him with the nurse told me about his unsteadiness Colidrops. He did seem to comprehend that did not have explanation but I did tell him that things could potentially get worse so his care accordingly. But I told him that we cannot let him get up being unstable and for falls. He expressed understanding. Though I would not be surprised, that the patient may not recollect any of this conversation particularly if he gets worse Alcoholic cirrhosis Continue lactulose. Follow-up with gastroenterology as outpatient. DVT prophylaxis: SCDs. Chemical prophylaxis contraindicated given the patient's thrombocytopenia. Charges/Coding Visit Charges Inpatient E&M: 55584 Subs Hosp L2
[2024-06-18] MEDS: Potassium Chloride Oral Tablet 10 MEQ PO (10:58)
[2024-06-18] MEDS: Amiodarone 200 MG Tablet PO (10:59)
[2024-06-18] MEDS: Metoprolol Tartrate 25 MG Tablet PO ×2 (10:59→21:12)
--- NOTE | 2024-06-18 11:19 | ADDICTION ---
Spoke with sister about pt's discharge plan. Her preference is residential tx, however understands that we cannot make pt go. Gave sister different resource options if he decides to go to inpatient after discharge.
[2024-06-19] MEDS: Phenobarbital 32.4 MG Tablet PO ×4 (01:12→19:34)
[2024-06-19 01:34] VITALS: BP 114/86; PULSE 98; RESP 18; TEMP 36.9; O2SAT 98
[2024-06-19 07:51] VITALS: BP 136/103; PULSE 111; RESP 16; TEMP 36.9; O2SAT 99
[2024-06-19] MEDS: Cyanocobalamin 500 MCG Tablet 1000 MCG PO (07:54)
[2024-06-19] MEDS: Folic Acid 1 MG Tablet PO (07:54)
[2024-06-19] MEDS: Thiamine Hydrochloride 100 MG Tablet PO (07:54)
--- NOTE | 2024-06-19 09:18 | PN.HOSP_ITS ---
Reason for Visit Reason for Visit: Diagnoses Alcohol use, unspecified with withdrawal, unspecified (06/15/24) Unspecified atrial fibrillation (06/15/24) Subjective Subjective feeling well. Objective Data Objective Data Vital Signs: Vital Signs Temp Pulse Resp BP Pulse Ox O2 Del Method O2 Flow Rate 36.9 C 111 H 16 136/103 H 99 Room Air 2 06/19/24 07:51 06/19/24 07:51 06/19/24 07:51 06/19/24 07:51 06/19/24 07:51 06/19/24 07:51 06/16/24 05:00 Oxygen Flow Rate (L/min) 2 Oxygen Delivery Method Room Air Weight: 96.162 kg Body Mass Index (BMI) 28.7 Intake & Output: Intake and Output for Last 24 Hours 06/17/24 06/18/24 06/19/24 23:59 23:59 23:59 Intake Total 400 / 760 720 / 1200 720 / 720 Balance 400 / 760 720 / 1200 720 / 720 Lab / Micro Data 06/15/24 13:06 06/17/24 05:30 Physical Exam Const alert and no apparent distress HEENT head/scalp atraumatic and moist oral mucous membranes Resp normal respiratory effort Cardio Cardio Narrative: tachycardia. irregularly irregular. Neuro Sensorium / Orientation: awake and alert Assessment & Plan Assessment/Plan (1) Atrial fibrillation with RVR: (2) Alcohol withdrawal: PLAN: Plan Afib with RVR * Was on on Cardizem drip. Heart rate is now controlled. * Patient not on anticoagulation due to chronic thrombocytopenia * Echocardiogram performed and shows an EF of 45%. Right checkered systolic pressure 46 mmHg. No baseline echocardiogram to compare to. * ongoing. already on amiodarone. will increase metoprolol tartrate from 25 BID to 50 BID. Acute alcohol withdrawal * Appears to be worsening. On phenobarbital taper. Will add lorazepam as needed. If continues to de-escalate, patient may need dexmedetomidine drip and ICU placement. * Thiamine and folate * Patient seen addiction medicine and has an appointment at [facility] on the at 9 AM, discussed with addiction medicine I do not feel that he is can be able to make that appointment is still going through active alcohol withdrawal and actively getting worse. This will need to be rescheduled for later point. Paranoia * Ongoing but more I think this is hallucinations at this point in time. Likely due to the alcohol withdrawal. Patient feeling and his rights are being infringe upon will understand that he is here for alcohol withdrawal. I did explain to him with the nurse told me about his unsteadiness Colidrops. He did seem to comprehend that did not have explanation but I did tell him that things could potentially get worse so his care accordingly. But I told him that we cannot let him get up being unstable and for falls. He expressed understanding. Though I would not be surprised, that the patient may not recollect any of this conversation particularly if he gets worse Alcoholic cirrhosis * Continue lactulose. Follow-up with gastroenterology as outpatient. DVT prophylaxis: SCDs. Chemical prophylaxis contraindicated given the patient's thrombocytopenia. Charges/Coding Visit Charges Inpatient E&M: 44037 Subs Hosp L2
[2024-06-19] MEDS: Potassium Chloride Oral Tablet 10 MEQ PO (09:40)
[2024-06-19] MEDS: Amiodarone 200 MG Tablet PO (09:40)
[2024-06-19 09:41] VITALS: PULSE 116
[2024-06-19] MEDS: Metoprolol Tartrate 25 MG Tablet PO (09:41)
[2024-06-19 13:25] VITALS: BP 99/79; PULSE 118; RESP 16; TEMP 36.8; O2SAT 100
[2024-06-19 21:52] VITALS: BP 132/105; PULSE 120; RESP 18; TEMP 36.6; O2SAT 96
[2024-06-19 21:58] VITALS: PULSE 120
[2024-06-19] MEDS: Metoprolol Tartrate 50 MG Tablet PO (21:58)
[2024-06-20 03:08] VITALS: BP 154/104; PULSE 113; RESP 18; TEMP 36.9; O2SAT 99
[2024-06-20 08:00] VITALS: BP 124/99; PULSE 109; RESP 18; TEMP 36.7; O2SAT 97
[2024-06-20] MEDS: Folic Acid 1 MG Tablet PO (08:10)
[2024-06-20] MEDS: Potassium Chloride Oral Tablet 10 MEQ PO (08:11)
[2024-06-20] MEDS: Cyanocobalamin 500 MCG Tablet 1000 MCG PO (08:11)
[2024-06-20] MEDS: Thiamine Hydrochloride 100 MG Tablet PO (08:11)
[2024-06-20] MEDS: Amiodarone 200 MG Tablet PO (08:11)
[2024-06-20 08:12] VITALS: BP 124/99; PULSE 109
[2024-06-20] MEDS: Metoprolol Tartrate 50 MG Tablet PO (08:12)
--- NOTE | 2024-06-20 11:47 | PCM.DC.SUM ---
Providers Date of Admission: 06/15/24 Primary Care Physician: JUSTIN SelbyC Reason For Visit: AFIB, RVR, ALCOHOL WITHDRAWAL Diagnosis Discharge Diagnosis (1) Atrial fibrillation with RVR: Status: Acute Code(s): I48.91 - Unspecified atrial fibrillation (2) Alcohol withdrawal: Status: Acute Code(s): F10.939 - Alcohol use, unspecified with withdrawal, unspecified Plan Afib with RVR Was on on Cardizem drip. Heart rate is now controlled. Patient not on anticoagulation due to chronic thrombocytopenia Echocardiogram performed and shows an EF of 45%. Right checkered systolic pressure 46 mmHg. No baseline echocardiogram to compare to. ongoing. already on amiodarone. will increase metoprolol tartrate from 25 BID to 50 BID. Follow-up with cardiology Acute alcohol withdrawal Appears to be worsening. On phenobarbital taper. Will add lorazepam as needed. If continues to de-escalate, patient may need dexmedetomidine drip and ICU placement. Thiamine and folate Patient seen addiction medicine and has an appointment at [facility] on the at 9 AM, discussed with addiction medicine I do not feel that he is can be able to make that appointment is still going through active alcohol withdrawal and actively getting worse. This will need to be rescheduled for later point. Paranoia/hallucinations Resolved. Secondary to his alcohol withdrawal. Alcoholic cirrhosis Continue lactulose. Follow-up with gastroenterology as outpatient. DVT prophylaxis: SCDs. Chemical prophylaxis contraindicated given the patient's thrombocytopenia. Medications at Discharge Home Medications alpha lipoic acid 600 mg capsule 600 mg PO BID supplement #180 caps 05/05/24 amiodarone 200 mg tablet 200 mg PO DAILY heart rate #90 tabs 05/05/24 aspirin 81 mg tablet,delayed release (Ecotrin Low Strength) 81 mg PO DAILY antiplatelet #90 tabs 05/05/24 bumetanide 1 mg tablet 1 mg PO DAILY #90 tabs 05/05/24 folic acid 1 mg tablet 1 mg PO DAILY #90 tabs 05/05/24 lactulose 20 gram/30 mL oral solution 20 g (30 mL) PO TID PRN constipation/ high ammonia #1,200 mL 05/05/24 potassium chloride 20 mEq tablet,extended release (K-Tab) 10 meq (1/2 x 20 mEq) PO DAILY supplement #90 tabs 05/05/24 vitamin B complex 1 tab PO DAILY #30 tabs 05/05/24 metoprolol tartrate 50 mg tablet 50 mg PO Q12 #60 tabs 06/20/24 multivitamin 1 tab PO DAILY #30 tabs 06/20/24 Hospital Course Operations None Procedures None Summary of Care Provided Hospital Course: Patient presented think treatment for alcohol withdrawal. He was on a phenobarbital drip. His alcohol withdrawal was complicated by some hallucinations and paranoia. Patient was stumbling and unsteady and was deemed a fall risk and had a bed and chair monitor placed. He went on tangents about his rights being infringe to and then another day was talking about having surgery on his back and coordinating care through [employer]. He is much better today. Patient will be discharged to his sister's home and will be following up with IOP at [facility]. While he was here he developed atrial fibrillation with RVR. His heart risk very elevated and did require diltiazem drip at 1 point. Did improve and was continued on his amiodarone and metoprolol. Though he is still remained tachycardic so his metoprolol was increased from 25 twice daily to 50 twice daily. That seems to have a beneficial effect on his heart rate. Given his profound thrombocytopenia likely due to his underlying cirrhosis and suspected splenomegaly, he is not a candidate for anticoagulation at this time. Weight / BMI Weight Weight: 96.162 kg Body Mass Index (BMI) 28.7 ABG / Lab / Microbiology Data 06/15/24 13:06 06/17/24 05:30 D/C Instructions Discharge Diet: No restrictions and - (No alcohol) Meaningful Use Info Meaningful Use Meaningful Use Diagnoses (Choose all that apply): None applicable Ischemic Stroke Statin Dosing Therapy Reference: STATIN DOSE THERAPY REFERENCE: * Patients > 75 years receive moderate or high dose statin therapy. * Patients 75 years or YOUNGER should receive HIGH intensity statin dose unless contraindicated. You will be required to document reason for non-treatment if statin daily dose does not meet guidelines. HIGH DOSE STATIN THERAPY DAILY Atorvastatin > than or = to 40 mg Rosuvastatin > than or = to 20 mg Amlodipine + Atorvastatin > than or = to 2.5/40 mg Ezetimibe + Simvastatin 10/80 mg Simvastatin 80mg Discharge Plan Admission Admit Date/Time: 06/15/24 16:15 Primary Reason for Your Visit: Alcohol withdrawal. Atrial fibrillation Attending Provider: Daniel Marie Primary Care Provider: Demi Matamoros Consulting Providers: Oralia Warner; Eloina Chery Instructions Additional Instructions / Restrictions: You went through a severe case of alcohol drawl. Not delirium tremens but you were hallucinating and confused for period of time. It is very important you follow-up with [facility] to have the IOP counseling. While you are here your heart rate, due to your A-fib, was very elevated we did have to make some changes to your medications. Your metoprolol has been increased from 25-50 twice daily. Discharge Orders/Prescriptions Prescriptions: New metoprolol tartrate 50 mg Tablet 50 mg PO Q12 Qty: 60 0RF multivitamin Tablet 1 tab PO DAILY Qty: 30 0RF Rx Instructions: [id number]. No prescription required. Continued bumetanide 1 mg tablet 1 mg PO DAILY Qty: 90 0RF Rx Instructions: for leg swelling aspirin [Ecotrin Low Strength] 81 mg tablet,delayed release (DR/EC) 81 mg PO DAILY Qty: 90 0RF folic acid 1 mg tablet 1 mg PO DAILY Qty: 90 0RF lactulose 20 gram/30 mL solution 20 g PO TID PRN (Reason: constipation/ high ammonia) Qty: 1200 0RF Rx Instructions: decrease ammonia levels amiodarone 200 mg tablet 200 mg PO DAILY Qty: 90 0RF potassium chloride [K-Tab] 20 mEq tablet extended release 10 meq PO DAILY Qty: 90 0RF alpha lipoic acid 600 mg capsule 600 mg PO BID Qty: 180 0RF vitamin B complex Tablet 1 tab PO DAILY Qty: 30 0RF Discontinued metoprolol tartrate 25 mg tablet 25 mg PO Q12H Qty: 90 0RF Referrals / Follow Up: [facility] [Provider Group] - Within 1 Month [facility] [Provider Group] - Within 1 Month Demi Matamoros, [employer] [Primary Care Provider] - Within 2 Weeks Disposition Disposition (needs filled in before D/C Order can be placed): Home, Self Care Charges/Coding Visit Charges Inpatient E&M: 33255 Disch Hosp
--- NOTE | 2024-06-20 12:29 | ADDICTION ---
Clinician met with pt prior to d/c. Cl affirmed d/c plan to follow up with outpatient services with [facility] (appt scheduled for 06/24 at 11AM). Pt denies interest in residential Tx at this time. No need for transportation indicated.
--- NOTE | 2024-06-20 12:32 | ADDICTION ---
Marco Antonio met with pt prior to d/c. Pt affirms d/c plan to follow up with outpatient services with [facility] (Appt scheduled 06/24 at 11AM). Pt denies interest in residential Tx at this time. No need for transportation indicated.
[2024-06-20 13:12] VITALS: BP 124/99; PULSE 109; RESP 18; TEMP 36.7; O2SAT 97
== END 2024-06-20 13:00 | disposition home or self-care (01) | DRG 897 ==
LOC: ED 14:31 → PCU 16:55
PROVIDERS: Student in an Organized Health Care Education/Training Program; Admitting Provider Internal Medicine; Emergency Provider Emergency Medicine; PCP Nurse Practitioner
DX: F10.939 Alcohol use, unspecified with withdrawal, unspecified (principal); E87.6 Hypokalemia; K70.30 Alcoholic cirrhosis of liver without ascites; I48.91 Unspecified atrial fibrillation; F17.210 Nicotine dependence, cigarettes, uncomplicated; Z79.82 Long term (current) use of aspirin; Z79.899 Other long term (current) drug therapy; Z86.718 Personal history of other venous thrombosis and embolism; Y90.6 Blood alcohol level of 120-199 mg/100 ml
CPT/HCPCS: 36415; 71045; 80048; 80061; 80076; 81001; 82077; 82140; 83690; 83735; 84484; 85025; 85610; 85730; 93005; 93306; 99285; 99406; J7030; A4216; J2405

== ENCOUNTER → 2024-07-03 | Outpatient (CLI) | payer MEDICARE, SELFPAY ==
[2024-07-03 16:26] LABS: Absolute Lymphocyte Count 1.52 X10^3/uL (0.83-4.51); Absolute Neutrophil Count 1.9 X10^3/uL (2.0-7.7); Basophil# 0.08 X10^3/uL; Eosinophil# 0.16 X10^3/uL; Eosinophils% 3.9 % (0-5); Hematocrit 41.8 % (40-54); Hemoglobin 13.6 g/dL (13.0-16.5); Lymphocyte # 1.52 X10^3/ul (0.83-4.51); Lymphocyte % 37.3 % (19-41); Mean Corp Hgb Conc 32.5 g/dL (32-36); Mean Corpuscular Hgb 33.3 pg (27.0-32.0); Mean Corpuscular Volume 102.2 fL (80-94); Mean Platelet Vol. 10.3 fl (6.2-12.0); Monocyte# 0.43 X10^3/uL; Monocyte% 10.6 % (0-10); NRBC Flagged by Analyzer 0 % (0-5); Neutrophil # 1.86 X10^3/uL (2.7-7.7); Neutrophil % 45.7 % (47-70); Platelet Count 184 K/mm3 (150-450); RBC Distribution Width SD 61.4 fl (35.1-43.9); Red Blood Count 4.09 M/mm3 (4.6-6.2); White Blood Count 4.1 K/mm3 (4.4-11.0)
[2024-07-03 16:40] LABS: ALB/GLOB Ratio 0.9 RATIO (0.9-2.4); AST(SGOT) 48 U/L (15-37); Alanine Aminotransfer ALT/SGPT 51 U/L (16-61); Albumin, Serum 3.1 g/dL (3.2-5.0); Alkaline Phosphatase 112 U/L (45-117); Anion Gap 6 (5-15); BUN 12 mg/dL (7-18); BUN/Creat Ratio 12.1 RATIO (10-20); Calcium,Total 9.3 mg/dL (8.5-10.1); Chloride 110 mmol/L (98-107); Creatinine, Serum 0.99 mg/dL (0.70-1.30); EST Glomerular Filtration Rate 84 mL/min (>60); Est Glom Filt Rate - Afr Amer 101 mL/min (>60); Globulin 3.6 g/dL (2.2-4.2); Glucose 87 mg/dL (74-106); Potassium 4.6 mmol/L (3.5-5.1); Protein, Total 6.7 g/dL (6.4-8.2); Sodium Level 142 mmol/L (136-145)
== END | disposition home or self-care (01) ==
LOC: BIMLAB 15:05
PROVIDERS: PCP Nurse Practitioner; Referring Provider Nurse Practitioner; Visit Provider Nurse Practitioner
DX: K70.30 Alcoholic cirrhosis of liver without ascites (principal); I85.00 Esophageal varices without bleeding
CPT/HCPCS: 36415; 80053; 82140; 85025

== ENCOUNTER 2024-08-13 06:15 | Inpatient (IN) | payer MEDICARE, SELFPAY ==
[2024-08-13] VITALS (22 sets, daily range): BP systolic 74–115; BP diastolic 54–89; PULSE 103–135; RESP 14–23; TEMP 36.2–37; O2SAT 93–98; BMI 27.8; BMI 29.7
--- NOTE | 2024-08-13 06:33 | EKG12_ITS ---
Test Reason : IRREGLAR HR Blood Pressure : / mmHG Vent. Rate : 149 BPM Atrial Rate : 000 BPM P-R Int : 000 ms QRS Dur : 104 ms QT Int : 294 ms P-R-T Axes : 000 005 142 degrees QTc Int : 463 ms Critical Test Result: High HR Atrial fibrillation with rapid ventricular response Low voltage QRS Nonspecific T wave abnormality Abnormal ECG When compared with ECG of 15-JUN-2024 13:02, Atrial fibrillation has replaced Atrial flutter QRS duration has increased ST no longer depressed in Inferior leads Confirmed by SERGIO WANG, ROWAN ([id number]), editor farm journal FELISA SWEENEY ([id number]) on 08/17/2024 9:57:53 AM Referred By: Confirmed By:ROWAN HILL MD
--- NOTE | 2024-08-13 06:35 | EDS_ITS ---
HPI History of Present Illness Chief Complaint: ETOH Intox Narrative Narrative: 54-year-old male past medical history of atrial fibrillation, esophageal varices, alcoholic cirrhosis of the liver/liver disease, hepatitis C, presents for detox. He states that he wants to enter the [facility]. He has been drinking alcohol for years. His last rehab was about a month ago when he was here but left the program early because he states he felt isolated. Since that time, he states that he did not noticed that he was jaundiced, but he has essentially been alone for the last month. He drinks 8-12 beers daily. About 3 days ago he started not feeling well and developed nausea and vomiting. He quit taking his amiodarone 200 mg and his metoprolol 25 mg twice daily for his atrial fibrillation. He has had 3 ablations in the past, the last being a few years ago, that would only take for about a year. He presents wanting detox. [facility] Medical History Alcohol use disorder Thrombocytopenia Alcoholic cirrhosis Tobacco use disorder History of cardioversion Portosystemic shunt, spontaneous History of deep vein thrombosis Overweight (BMI 25.0-29.9) Chronic alcohol abuse Hypokalemia Paroxysmal atrial flutter Encounter to establish care Bleeding esophageal varices Esophageal varices Presence of Watchman left atrial appendage closure device Alcohol abuse Osteoporosis Cirrhosis Smoker Irregular heart beat Atrial fibrillation Home Medications ?Medication ?Instructions ?Recorded ?Last Taken ?Type alpha lipoic acid 600 mg capsule 600 mg PO BID supplement #180 caps 05/05/24 Unknown Rx aspirin 81 mg tablet,delayed 81 mg PO DAILY antiplatelet #90 05/05/24 Unknown Rx release (Ecotrin Low Strength) tabs lactulose 20 gram/30 mL oral 20 g (30 mL) PO TID PRN 05/05/24 Unknown Rx solution constipation/ high ammonia #1,200 mL vitamin B complex 1 tab PO DAILY supplement #30 tabs 05/05/24 Unknown Rx multivitamin 1 tab PO DAILY #30 tabs 06/20/24 Unknown Rx folic acid 1 mg tablet 1 mg PO DAILY supplement #90 tabs 07/01/24 Unknown Rx amiodarone 200 mg tablet 200 mg PO DAILY heart rate #90 tabs 07/03/24 Unknown Rx bumetanide 1 mg tablet 1 mg PO DAILY PRN edema 07/03/24 Unknown History ferrous sulfate 325 mg (65 mg 325 mg PO DAILY 07/03/24 Unknown History iron) tablet (Feosol) glutamine 500 mg capsule 500 mg PO BID 07/03/24 Unknown History (L-Glutamine) metoprolol tartrate 50 mg tablet 50 mg PO Q12 90 days #180 tabs 07/03/24 Unknown Rx naltrexone 50 mg tablet 50 mg PO QDAY 07/03/24 Unknown History omega-3 fatty acids 1,000 mg 1,000 mg PO BID 07/03/24 Unknown History capsule potassium chloride 10 mEq 10 meq PO QDAY 07/03/24 Unknown History tablet,extended release turmeric root extract 1,053 mg 1,076 mg PO QDAY 07/03/24 Unknown History tablet Allergy/AdvReac Type Severity Reaction Status Date / Time bee venom protein (honey Allergy Severe Anaphylaxis Verified 08/13/24 06:20 bee) (bee stings) propafenone Allergy Other Verified 08/13/24 06:20 Family History Other Alcoholism Arthritis Depression High cholesterol Hypertension Liver disease Severe allergy Surgical History History of colonoscopy History of cardiac catheterization H/O cardiac radiofrequency ablation History of radiofrequency ablation procedure for cardiac arrhythmia Social History adopted: No household members: family, none and other details: sister current occupational status: unemployed Smoking Status: Current every day smoker tobacco type: cigarettes details: alcohol cessation currently substance use type: does not use diet: other well-balanced diet: other details: weight watcher diet what type of physical activity do you participate in: none seatbelt use: always do you feel safe at home: Yes ROS ROS ED ROS Narrative Constitutional: No fever, no chills. Positive malaise. HEENT: No sore throat. No neck pain. No loss of vision. No rhinorrhea. Cardiovascular: No chest pain. No palpitations. No pedal edema. Respiratory: No cough, no shortness of breath. Abdominal: No abdominal pain. Positive nausea and vomiting. Genitourinary: No dysuria. No hematuria. Musculoskeletal: No myalgias. No arthralgias. Neurologic: No headaches. No dizziness. No lightheadedness. Skin: No rash. Did not notice jaundice. EXAM Physical Exam Narrative Exam Narrative: Afebrile. Vital signs noted. Nontoxic-appearing. Positive scleral icterus. PERRL, EOMI. Positive jaundice of skin. Cardiovascular examination reveals an irregularly irregular tachycardia ranging from 109 to the 120s. Lungs are clear to auscultation bilaterally. Abdomen soft nontender with normal active bowel sounds. Neurological examination shows him to be awake, alert, oriented, with normal thought process. Const Vital Signs: 08/13/24 06:16 08/13/24 06:55 08/13/24 07:44 Temperature 97.1 F L 97.4 F L Temperature Source Oral Oral Pulse Rate 109 H 128 H 103 H Respiratory Rate 18 18 16 Blood Pressure 91/74 108/77 110/79 Blood Pressure Mean 79 87 89 Blood Pressure Source Monitor Blood Pressure Position Semi-Fowlers Blood Pressure Location Right Arm Pulse Ox 95 95 96 Oxygen Delivery Method Room Air Room Air Room Air 08/13/24 08:16 Temperature Temperature Source Pulse Rate 116 H Respiratory Rate 16 Blood Pressure 115/64 Blood Pressure Mean 81 Blood Pressure Source Blood Pressure Position Blood Pressure Location Pulse Ox 96 Oxygen Delivery Method Room Air MDM MDM MDM Narrative Medical decision making narrative: Differential diagnosis includes liver failure, and atrial fibrillation with rapid ventricular response. Also, he states his last drink was at 10:00 yesterday evening approximately 8 and half hours ago. CIWA screening will be performed I think his tachycardia is more from A-fib that it is alcohol withdrawal. He will be bolused normal saline because he has a soft blood pressure of 91 systolic but this may be secondary to rate dependent hypotension. He was given Cardizem 10 mg intravenously. He transiently had a lower heart rate, but it increased back up into the 120s. He was started on Cardizem drip. I reviewed his laboratory work and he has normal white count of 4.6 with hemoglobin 13.0, hematocrit 35.5, platelet count low at 41. He has history of chronic thrombocytopenia. Sodium is low at 129 with potassium 2.5. This was replaced with 40 mill equivalents intravenously. Chloride is low at 87. I added a magnesium which is pending. Creatinine slightly elevated at 1.33, glucose 95. Total bilirubin elevated at 30 and LFTs are elevated as well. Lipase is elevated at 355. I think he probably has more of an alcoholic pancreatitis with alcoholic cirrhosis/hepatitis. Urine for drugs of abuse is negative. Alcohol level is elevated at 98. At this point in time, I discussed the patient with Dr. Villanueva for admission. He does agree that gallbladder ultrasound should be performed prior to admission. I did look at a previous CT which showed no evidence of gallstones, but the patient will be signed out to Dr. Vu who will check the ultrasound and then admit the patient to the PCU to the service of Dr. Villanueva. Patient is in stable condition. History & Record Review Discussion w/independent historian: Patient and Family Lab Data Attestation: I reviewed the patient's lab results. Labs: Laboratory Results - last 24 hr 08/13/24 08/13/24 06:30 07:05 WBC 4.6 RBC 4.01 L Hgb 13.0 Hct 35.5 L MCV 88.5 MCH 32.4 H MCHC 36.6 H RDW Std Deviation 56.7 H RDW Coeff of Asher 16.9 H Plt Count 41 L* MPV 11.6 Immature Gran % (Auto) 1.100 H Neut % (Auto) 74.1 H Lymph % (Auto) 9.7 L Dane % (Auto) 13.4 H Eos % (Auto) 1.1 Baso % (Auto) 0.6 Absolute Neuts (auto) 3.4 Absolute Lymphs (auto) 0.45 L Nucleated RBC % 0 Platelet Estimate MKD DEC PT 22.5 H INR 2.0 APTT 49.0 H Sodium 129 L Potassium 2.5 L* Chloride 87 L Carbon Dioxide 27.0 Anion Gap 15 BUN 11 Creatinine 1.33 H Estim Creat Clear Calc 69.69 Est GFR (MDRD) Af Amer 72 Est GFR (MDRD) Non-Af 59 L BUN/Creatinine Ratio 8.3 L Glucose 95 Calcium 8.5 Magnesium 1.2 L Total Bilirubin 30.00 H* AST 282 H ALT 127 H Alkaline Phosphatase 232 H Ammonia 54.0 H Troponin I High Sens 44 Total Protein 5.0 L Albumin 2.1 L Globulin 2.9 Albumin/Globulin Ratio 0.7 L Lipase 355 H Urine Opiates Screen NEGATIVE Urine Methadone Screen NEGATIVE Ur Barbiturates Screen NEGATIVE Ur Phencyclidine Scrn NEGATIVE Ur Amphetamines Screen NEGATIVE MDMA (Ecstasy) Screen NEGATIVE U Benzodiazepines Scrn NEGATIVE Urine Cocaine Screen NEGATIVE U Cannabinoids Screen NEGATIVE Ur Drug Screen Comment Ethyl Alcohol 98.0 Management Discussion w/another healthcare provider: Hospitalist Discharge Plan Dx/Rx/DC Orders Clinical Impression: Atrial fibrillation with RVR, Alcoholic cirrhosis, Jaundice, Desire for detox ification, Acute alcohol intoxication delirium with moderate or severe use disorder, Hypokalemia, Pancreatitis Disposition Disposition: Acute Care Hospital [facility]
[2024-08-13 06:50] LABS: Absolute Lymphocyte Count 0.45 X10^3/uL (0.83-4.51); Absolute Neutrophil Count 3.4 X10^3/uL (2.0-7.7); Basophil# 0.03 X10^3/uL; Basophil% 0.6 % (0-1); Eosinophil# 0.05 X10^3/uL; Eosinophils% 1.1 % (0-5); Lymphocyte # 0.45 X10^3/ul (0.83-4.51); Lymphocyte % 9.7 % (19-41); Mean Platelet Vol. 11.6 fl (6.2-12.0); Monocyte# 0.62 X10^3/uL; Monocyte% 13.4 % (0-10); NRBC Flagged by Analyzer 0 % (0-5); Neutrophil # 3.42 X10^3/uL (2.7-7.7); Neutrophil % 74.1 % (47-70); POSITIVE COUNT YES; POSITIVE DIFFERENTIAL YES; RBC Distribution Width CV 16.9 % (11.6-14.6); RBC Distribution Width SD 56.7 fl (35.1-43.9)
[2024-08-13] MEDS: 0.9% Normal Saline (1000mL) 1,000 ML 999 ML IV (06:54)
[2024-08-13] MEDS: dilTIAZem 25 MG/5 ML Vial 10 MG IV BOLUS (06:54)
[2024-08-13 06:55] LABS: Prothrombin Time (Protime)PT. 22.5 SECONDS (11.7-14.9)
[2024-08-13 07:21] LABS: Hematocrit 35.5 % (40-54)
[2024-08-13 07:22] LABS: Mean Corp Hgb Conc 36.6 g/dL (32-36)
[2024-08-13 07:23] LABS: Red Blood Count 4.01 M/mm3 (4.6-6.2); White Blood Count 4.6 K/mm3 (4.4-11.0)
[2024-08-13 07:26] LABS: Mean Corpuscular Hgb 32.4 pg (27.0-32.0); Mean Corpuscular Volume 88.5 fL (80-94)
[2024-08-13 07:27] LABS: Amphetamine Urine VISTA NEGATIVE (<1000 ng/mL); Barbiturate Urine VISTA NEGATIVE (< 200 ng/mL); Benzodiazepine Urine VISTA NEGATIVE (< 200 ng/mL); Cocaine Urine VISTA NEGATIVE (< 300 ng/mL); Ecstacy Urine VISTA NEGATIVE (< 500 ng/mL); Methadone Urine VISTA NEGATIVE (< 300 ng/mL); PCP Urine VISTA NEGATIVE (< 25 ng/mL); THC Urine VISTA NEGATIVE (< 50 ng/mL); Vista UDS pH Range 7
[2024-08-13 07:29] LABS: Differential Indicated SCAN CRITERIA MET; Platelet Count 41 K/mm3 (150-450)
[2024-08-13 07:34] LABS: Platelet Estimate MKD DEC (ADEQ)
[2024-08-13] MEDS: Diltiazem 125 MG in Dextrose 5%-Water (100mL Bag) 100 ML IV (07:44)
[2024-08-13 08:09] LABS: AST(SGOT) 282 U/L (15-37); Alanine Aminotransfer ALT/SGPT 127 U/L (16-61); Albumin, Serum 2.1 g/dL (3.2-5.0); Alkaline Phosphatase 232 U/L (45-117); Anion Gap 15 (5-15); BUN 11 mg/dL (7-18); BUN/Creat Ratio 8.3 RATIO (10-20); Calcium,Total 8.5 mg/dL (8.5-10.1); Chloride 87 mmol/L (98-107); Creatinine, Serum 1.33 mg/dL (0.70-1.30); EST Glomerular Filtration Rate 59 mL/min (>60); Est Glom Filt Rate - Afr Amer 72 mL/min (>60); Estimated Creatinine Clearance 69.69 ml/min; Glucose 95 mg/dL (74-106); Lipase 355 U/L (13-75); Potassium 2.5 mmol/L (3.5-5.1); Sodium Level 129 mmol/L (136-145); Troponin-I HS 44 pg/mL (3.0-78.0)
--- NOTE | 2024-08-13 08:15 | US_ITS ---
STUDY: ABDOMINAL ULTRASOUND - RIGHT UPPER QUADRANT REASON FOR VISIT: Male, 54 years old Elevated LFTs TECHNIQUE: Ultrasound evaluation of the right upper quadrant was performed with real-time and static jimenez-scale imaging. TECHNICAL QUALITY: Adequate. COMPARISON: Comparison is made with prior CT scan of the abdomen and pelvis dated April 20, 2024. FINDINGS: Liver: The liver measures 14.4 cm. There is a heterogeneous echogenicity of the liver. The bile ducts are within normal limits. There is hepatic color flow. Limited determination of portal flow.. There is no demonstrated mass lesion. There is evidence of recannulization of the umbilical vein. This is suggestive of a portal venous hypertension and portal systemic shunting. Gallbladder: There is a markedly distended gallbladder. The gallbladder wall is thickened and measures 7 mm. There is a negative sonographic Miranda''s sign. Small amount of pericholecystic fluid. Small solitary gallstone. Sludge is seen within the gallbladder lumen. Common Bile Duct (C.B.D.): The common bile duct measures 6 mm. Pancreas: There is nonvisualization of the pancreas. Right Kidney: Normal size of the right kidney. The right kidney measures 11.9 cm x 5.5 cm x 5 cm. Normal renal cortex. The right cortex measures 1.6 cm. There is no demonstrated renal mass or cyst. There is no right hydronephrosis. US/Gallbladder IMPRESSION: Heterogeneous appearance of the liver. Recanalization of the umbilical vein suggestive of a portal venous hypertension. Distended gallbladder with thickened and edematous wall of the gallbladder with pericholecystic fluid. Small solitary gallstone as well as sludge within the gallbladder lumen. Small amount of free fluid in the right upper and lower quadrants. Electronically Signed: Ambrosio Kline MD at 9:33 EDT ,
[2024-08-13 08:29] LABS: ALB/GLOB Ratio 0.7 RATIO (0.9-2.4); Globulin 2.9 g/dL (2.2-4.2)
[2024-08-13 08:42] LABS: Magnesium 1.2 mg/dL (1.6-2.6)
[2024-08-13] MEDS: KCL 40mEq in 0.9% NS 40 MEQ/1,000 ML IV.SOLN 250 MEQ IV (09:18)
--- NOTE | 2024-08-13 10:32 | CT_ITS ---
STUDY: CT ABDOMEN AND PELVIS WITH CONTRAST REASON FOR EXAM: Male, 54 years old. Hypotension. Alcohol abuse. Jaundice. Increased abdominal swelling. RADIATION DOSAGE (If Supplied By Facility): CTDIvol = ( 17.21 ) mGy, DLP = ( 1144.39 ) mGycm TECHNIQUE: Transaxial images were obtained from the dome of the diaphragm to the symphysis pubis without oral contrast. IV 100mL [id number]-[id number] was administered. Sagittal and coronal images were reconstructed. Individualized dose optimization techniques were used for this CT. COMPARISON: Comparison is made with prior study dated April 20, 2024. FINDINGS: Increased markings at the left lung base suggestive of a left basilar atelectasis. Coronary artery calcification. There is decreased attenuation of the liver consistent with steatosis. Hepatomegaly. Lobulated contour of the liver suggestive of cirrhosis. Small amount of perihepatic fluid. The gallbladder is distended. Mild degree of gallbladder wall thickening. Small solitary gallstone. Normal spleen. Normal pancreas. Normal bilateral adrenal glands. Normal right kidney. Normal left kidney. Normal visualized stomach. Normal small intestine. Abnormal thickening of the right hemicolon. Colitis should be ruled out. The appendix is visualized and appears normal. There is atherosclerotic calcification of the abdominal aorta, without a demonstrated aneurysm. Normal inferior vena cava. Normal retroperitoneum. Diffuse bladder wall thickening. Small amount of ascites is seen in the pelvis. Normal abdominal wall. Normal osseous structures. CT/Abdomen/Pelvis W IV Cont ONLY IMPRESSION: Small amount of ascites. Hepatomegaly and diffuse fatty infiltration of the liver. Findings suggestive of colitis of the right hemicolon. Distended gallbladder with wall thickening and solitary gallstone. Electronically Signed: Ambrosio Kline MD at 11:23 EDT ,
[2024-08-13] MEDS: 0.9% Normal Saline (500mL Bag) 500 ML 999 ML IV (10:35)
[2024-08-13] MEDS: LORazepam 1 MG Tablet PO ×3 (13:06→21:00)
[2024-08-13] MEDS: Phytonadione (Vit K) 5 MG in 0.9% Normal Saline (50mL Bag) 50 ML 150 MG IV (13:08)
[2024-08-13] MEDS: 0.9% Saline Lock 10 ML Syringe IV ×4 (13:15→23:38)
[2024-08-13] MEDS: Ondansetron 8 MG Tablet PO (13:16)
[2024-08-13] MEDS: ACETYLCYSTEINE IV ×2 (14:10→15:15)
[2024-08-13] MEDS: DEXTROSE 5% IV ×2 (14:10→15:15)
[2024-08-13] MEDS: WATER IV ×2 (14:10→15:15)
--- NOTE | 2024-08-13 15:30 | PCM.HP.STD ---
HPI - General General Date of Admission: 08/13/24 HPI Narrative LUIS DU, is a 54 M who presents to the hospital with hallucinations and jaundice as well as abdominal pain. He binge drinks about 12 beers a day and has been doing that every day for about the last 4 years but a significant alcoholism started in the last 10 years. Prior to the last 4 years of heavy binge drinking he would go into periods of binge drinking when he did not have a job, when he would work he would only have a couple of beers every couple of days. On admission today he was found to be in A-fib with RVR and was started on a Cardizem drip however became hypotensive and this was stopped and he was placed on IV fluids. He is severely thrombocytopenic with a platelet count of 41, he does appear to be chronically thrombocytopenic hemoglobin stable at 13. INR is 2.0 and he is not on Coumadin, he is hyponatremic to 129 with hypokalemia 2.5. Creatinine is 1.33, unfortunately his bilirubin is 30 with an ammonia 54. His MELD score is 33 and his discriminant factor is 78. He has noted that his urine is very dark and that his stools are very light recently. [facility] Medical History Alcohol use disorder Thrombocytopenia Alcoholic cirrhosis Tobacco use disorder History of cardioversion Portosystemic shunt, spontaneous History of deep vein thrombosis Overweight (BMI 25.0-29.9) Chronic alcohol abuse Hypokalemia Paroxysmal atrial flutter Encounter to establish care Bleeding esophageal varices Esophageal varices Presence of Watchman left atrial appendage closure device Alcohol abuse Osteoporosis Cirrhosis Smoker Irregular heart beat Atrial fibrillation Home Medications ?Medication ?Instructions ?Recorded ?Last Taken ?Type alpha lipoic acid 600 mg capsule 600 mg PO BID supplement #180 caps 05/05/24 Unknown Rx aspirin 81 mg tablet,delayed 81 mg PO DAILY antiplatelet #90 05/05/24 Unknown Rx release (Ecotrin Low Strength) tabs lactulose 20 gram/30 mL oral 20 g (30 mL) PO TID PRN 05/05/24 Unknown Rx solution constipation/ high ammonia #1,200 mL vitamin B complex 1 tab PO DAILY supplement #30 tabs 05/05/24 Unknown Rx multivitamin 1 tab PO DAILY #30 tabs 06/20/24 Unknown Rx folic acid 1 mg tablet 1 mg PO DAILY supplement #90 tabs 07/01/24 Unknown Rx amiodarone 200 mg tablet 200 mg PO DAILY heart rate #90 tabs 07/03/24 Unknown Rx bumetanide 1 mg tablet 1 mg PO DAILY PRN edema 07/03/24 Unknown History ferrous sulfate 325 mg (65 mg 325 mg PO DAILY 07/03/24 Unknown History iron) tablet (Feosol) glutamine 500 mg capsule 500 mg PO BID 07/03/24 Unknown History (L-Glutamine) metoprolol tartrate 50 mg tablet 50 mg PO Q12 90 days #180 tabs 07/03/24 Unknown Rx naltrexone 50 mg tablet 50 mg PO QDAY 07/03/24 Unknown History omega-3 fatty acids 1,000 mg 1,000 mg PO BID 07/03/24 Unknown History capsule potassium chloride 10 mEq 10 meq PO QDAY 07/03/24 Unknown History tablet,extended release turmeric root extract 1,053 mg 1,076 mg PO QDAY 07/03/24 Unknown History tablet Allergy/AdvReac Type Severity Reaction Status Date / Time bee venom protein (honey Allergy Severe Anaphylaxis Verified 08/13/24 06:20 bee) (bee stings) propafenone Allergy Other Verified 08/13/24 06:20 Family History Other Alcoholism Arthritis Depression High cholesterol Hypertension Liver disease Severe allergy Surgical History History of colonoscopy History of cardiac catheterization H/O cardiac radiofrequency ablation History of radiofrequency ablation procedure for cardiac arrhythmia Social History adopted: No household members: family, none and other details: sister current occupational status: unemployed Smoking Status: Current every day smoker tobacco type: cigarettes details: alcohol cessation currently substance use type: does not use diet: other well-balanced diet: other details: weight watcher diet what type of physical activity do you participate in: none seatbelt use: always do you feel safe at home: Yes ROS Constitutional Constitutional: Reports fatigue and weakness; Denies chills, fever(s) or malaise Eyes Eyes: Denies blurry vision ENT HEENT: Denies headache(s) or nasal discharge Cardiovascular Cardiovascular: Denies chest pain, dyspnea on exertion or syncope Respiratory/Chest Respiratory/Chest: Denies cough, shortness of breath at rest or shortness of breath with exertion Gastrointestinal Gastrointestinal: Denies constipation, diarrhea, nausea or vomiting Genitourinary Genitourinary: Denies dysuria Integumentary Integumentary: Reports jaundice Neurologic Neurologic: Denies focal weakness, numbness or tremor(s) Psychiatric Psychiatric: Reports auditory hallucinations; Denies anxiety or depression Vital Signs Vital Signs Vital Signs: 08/13/24 06:16 08/13/24 06:55 08/13/24 07:44 Temperature 97.1 F L 97.4 F L Temperature Source Oral Oral Pulse Rate 109 H 128 H 103 H Respiratory Rate 18 18 16 Blood Pressure 91/74 108/77 110/79 Blood Pressure Mean 79 87 89 Blood Pressure Source Monitor Blood Pressure Position Semi-Fowlers Blood Pressure Location Right Arm Pulse Ox 95 95 96 Oxygen Delivery Method Room Air Room Air Room Air 08/13/24 08:16 08/13/24 10:00 08/13/24 10:02 Temperature 97.3 F L Temperature Source Oral Pulse Rate 116 H 124 H 118 H Respiratory Rate 16 20 H 14 Blood Pressure 115/64 102/74 102/74 Blood Pressure Mean 81 83 83 Blood Pressure Source Monitor Blood Pressure Position Sitting Blood Pressure Location Right Arm Pulse Ox 96 96 94 Oxygen Delivery Method Room Air Room Air 08/13/24 10:33 08/13/24 10:36 08/13/24 11:12 Temperature 97.3 F L 97.8 F Temperature Source Oral Pulse Rate 114 H 107 H 122 H Respiratory Rate 18 19 H 19 H Blood Pressure 74/54 L 88/64 L 113/82 H Blood Pressure Mean 60 72 92 Blood Pressure Source Monitor Blood Pressure Position Sitting Blood Pressure Location Left Arm Pulse Ox 95 94 97 Oxygen Delivery Method Room Air Room Air 08/13/24 11:13 Temperature 97.3 F L Temperature Source Oral Pulse Rate 117 H Respiratory Rate 19 H Blood Pressure 113/82 H Blood Pressure Mean 92 Blood Pressure Source Blood Pressure Position Blood Pressure Location Pulse Ox 98 Oxygen Delivery Method Room Air Weight Weight: 219 lb 12.814 oz Body Mass Index (BMI) 29.7 Physical Exam Narrative General: Alert, Oriented x3, Cooperative, No apparent distress HEENT: Atraumatic, PERRLA, EOMI, Normocephalic, scleral icterus Oral: Moist Mucosa Neck: Supple, No JVD Lungs: Clear to auscultation, Normal air movement, No rhonchi, No wheeze, No rales Cardiovascular: Regular rate, Regular Rhythm, Normal S1, Normal S2, No murmurs Abdomen: Soft, epigastric tender, mildly distended, hepatomegaly Extremities: Edema, Capillary Refill Less than 3 Seconds Skin: No rashes, No breakdown, jaundice Musculoskeletal: No Tenderness to Palpation of Joints or Extremities Neurological: No focal neurological deficits, Motor Exam 5/5 strength throughout, Sensory exam intact to light touch and pain Psych/Mental Status: Normal Affect, Appropriate Results Lab / Micro Data 08/13/24 06:30 08/13/24 06:30 Labs: Laboratory Results - last 24 hr 08/13/24 06:30: WBC 4.6, RBC 4.01 L, Hgb 13.0, Hct 35.5 L, MCV 88.5, MCH 32.4 H, MCHC 36.6 H, RDW Std Deviation 56.7 H, RDW Coeff of Asher 16.9 H, Plt Count 41 L*, MPV 11.6, Immature Gran % (Auto) 1.100 H, Neut % (Auto) 74.1 H, Lymph % (Auto) 9.7 L, Towns % (Auto) 13.4 H, Eos % (Auto) 1.1, Baso % (Auto) 0.6, Absolute Neuts (auto) 3.4, Absolute Lymphs (auto) 0.45 L, Nucleated RBC % 0, Platelet Estimate MKD DEC, PT 22.5 H, INR 2.0, APTT 49.0 H, Sodium 129 L, Potassium 2.5 L*, Chloride 87 L, Carbon Dioxide 27.0, Anion Gap 15, BUN 11, Creatinine 1.33 H, Estim Creat Clear Calc 69.69, Est GFR (MDRD) Af Amer 72, Est GFR (MDRD) Non-Af 59 L, BUN/Creatinine Ratio 8.3 L, Glucose 95, Calcium 8.5, Magnesium 1.2 L, Total Bilirubin 30.00 H*, AST 282 H, ALT 127 H, Alkaline Phosphatase 232 H, Ammonia 54.0 H, Troponin I High Sens 44, Total Protein 5.0 L, Albumin 2.1 L, Globulin 2.9, Albumin/Globulin Ratio 0.7 L, Lipase 355 H, Ethyl Alcohol 98.0 08/13/24 07:05: Urine Opiates Screen NEGATIVE, Urine Methadone Screen NEGATIVE, Ur Barbiturates Screen NEGATIVE, Ur Phencyclidine Scrn NEGATIVE, Ur Amphetamines Screen NEGATIVE, MDMA (Ecstasy) Screen NEGATIVE, U Benzodiazepines Scrn NEGATIVE, Urine Cocaine Screen NEGATIVE, U Cannabinoids Screen NEGATIVE, Ur Drug Screen Comment Imaging Radiology Impression Gallbladder Ultrasound 08/13/24 08:15 IMPRESSION: Heterogeneous appearance of the liver. Recanalization of the umbilical vein suggestive of a portal venous hypertension. Distended gallbladder with thickened and edematous wall of the gallbladder with pericholecystic fluid. Small solitary gallstone as well as sludge within the gallbladder lumen. Small amount of free fluid in the right upper and lower quadrants. Electronically Signed: Ambrosio Kline MD at 9:33 EDT , Abdomen/Pelvis CT 08/13/24 10:32 IMPRESSION: Small amount of ascites. Hepatomegaly and diffuse fatty infiltration of the liver. Findings suggestive of colitis of the right hemicolon. Distended gallbladder with wall thickening and solitary gallstone. Electronically Signed: Ambrosio Kline MD at 11:23 EDT , Assessment & Plan Assessment/Plan (1) Pancreatitis: (2) Acute alcohol intoxication delirium with moderate or severe use disorder: (3) Jaundice: (4) Atrial fibrillation with RVR: PLAN: Plan 1. Alcohol withdrawal in the setting of acute severe alcoholic hepatitis and cirrhosis with thrombocytopenia and hyperammonemia with acute pancreatitis ? Synthetic function is diminished with an INR of 2, will give him a dose of vitamin K ? His MELD sodium score is 33 and his Madrey's discriminant factor is 78, mortality is around 60% at 90 days currently ? Total bilirubin is 30 and he was started on Solu-Medrol 40 mg IV 3 times daily ? Will continue with N-acetylcysteine ? Appreciate gastroenterology's assistance ? Initially were going to obtain a liver biopsy however at this institution is done CT-guided ultrasound-guided and given his severe thrombocytopenia as well as his INR of 2 risk of bleeding is is too high at the moment ? Continue with aggressive IV fluids and will continue with n.p.o. ? Continue with the alcohol withdrawal protocol with Ativan taper given his liver disease ? Continue with lactulose ? Gallbladder ultrasound does not show cholecystitis and common bile duct is 6 mm, the wall thickening and pericholecystic fluid is likely related to his severe alcoholic hepatitis 2. A-fib with RVR/chronic systolic CHF ? Will hold his amiodarone secondary to the liver and pancreatitis ? Will hold Bumex ? Recent echo on 06/15/2024 with an EF of 45% and RVSP of 46 mmHg likely also component of diastolic heart failure ? He did attempt to have a Cardizem drip in the ER however this caused significant hypotension so this was discontinued given the issues going on with his liver will treat primary causes as long as his heart rate stays below 120 ? Will hold his beta-art at the moment DVT: SCDs 75 minutes was spent on direct patient care, including documentation as well as chart review and collaboration with colleagues Charges/Coding Visit Charges Inpatient E&M: 52530 Init Hosp L3
[2024-08-13] MEDS: 0.9% Normal Saline (1000mL) 1,000 ML 200 ML IV ×2 (15:39→23:39)
[2024-08-13] MEDS: Magnesium Sulfate 4gm/100mL 4 GM/100 ML IV.SOLN. IV (16:52)
--- NOTE | 2024-08-13 19:05 | EX.PCM.CON.G ---
HPI Consult Data Date of Consult: 08/13/24 HPI Narrative Reason for Consultation: Alcoholic hepatitis HPI Narrative: LUIS DU, is a 54 M who presented to the GI office for follow-up in June 2024. Pt had been week overall since his most recent discharge 06/20. Denies abdominal pain, dizziness, confusion, ascites or lower leg swelling. He was taking Lactulose with 2 formed BM daily. He was currently taking Naltrexone and following up with [facility]. Patient started drinking alcohol, couple beers every day at the age of 18 in college and then continued that frequency till 2008 when he was about 39 years old. At that time his mother and he felt very lonely and quit job in 2011. At that time, he started drinking about 12 packs of 12 ounce beer every day. He said he will had loss of purpose loss of identification with no job. He continued until he quit on June 14, 2024 just 1 day prior to the last hospitalization. On admission today he was found to be in A-fib with RVR and was started on a Cardizem drip however became hypotensive and this was stopped and he was placed on IV fluids. He is severely thrombocytopenic with a platelet count of 41, he does appear to be chronically thrombocytopenic hemoglobin stable at 13. INR is 2.0 and he is not on Coumadin, he is hyponatremic to 129 with hypokalemia 2.5. Creatinine is 1.33, unfortunately his bilirubin is 30 with an ammonia 54. His MELD score is 33 and his discriminant factor is 78. He has noted that his urine is very dark and that his stools are very light recently. CT scan displayed : there is decreased attenuation of the liver consistent with steatosis. Hepatomegaly. Lobulated contour of the liver suggestive of cirrhosis. Small amount of perihepatic fluid. The gallbladder is distended. Mild degree of gallbladder wall thickening. Small solitary gallstone. Normal spleen. Normal pancreas. Findings suggestive of colitis of the right hemicolon. [facility] Medical History Alcohol use disorder Thrombocytopenia Alcoholic cirrhosis Tobacco use disorder History of cardioversion Portosystemic shunt, spontaneous History of deep vein thrombosis Overweight (BMI 25.0-29.9) Chronic alcohol abuse Hypokalemia Paroxysmal atrial flutter Encounter to establish care Bleeding esophageal varices Esophageal varices Presence of Watchman left atrial appendage closure device Alcohol abuse Osteoporosis Cirrhosis Smoker Irregular heart beat Atrial fibrillation Home Medications ?Medication ?Instructions ?Recorded ?Last Taken ?Type alpha lipoic acid 600 mg capsule 600 mg PO BID supplement #180 caps 05/05/24 Unknown Rx aspirin 81 mg tablet,delayed 81 mg PO DAILY antiplatelet #90 05/05/24 Unknown Rx release (Ecotrin Low Strength) tabs lactulose 20 gram/30 mL oral 20 g (30 mL) PO TID PRN 05/05/24 Unknown Rx solution constipation/ high ammonia #1,200 mL vitamin B complex 1 tab PO DAILY supplement #30 tabs 05/05/24 Unknown Rx multivitamin 1 tab PO DAILY #30 tabs 06/20/24 Unknown Rx folic acid 1 mg tablet 1 mg PO DAILY supplement #90 tabs 07/01/24 Unknown Rx amiodarone 200 mg tablet 200 mg PO DAILY heart rate #90 tabs 07/03/24 Unknown Rx bumetanide 1 mg tablet 1 mg PO DAILY PRN edema 07/03/24 Unknown History ferrous sulfate 325 mg (65 mg 325 mg PO DAILY 07/03/24 Unknown History iron) tablet (Feosol) glutamine 500 mg capsule 500 mg PO BID 07/03/24 Unknown History (L-Glutamine) metoprolol tartrate 50 mg tablet 50 mg PO Q12 90 days #180 tabs 07/03/24 Unknown Rx naltrexone 50 mg tablet 50 mg PO QDAY 07/03/24 Unknown History omega-3 fatty acids 1,000 mg 1,000 mg PO BID 07/03/24 Unknown History capsule potassium chloride 10 mEq 10 meq PO QDAY 07/03/24 Unknown History tablet,extended release turmeric root extract 1,053 mg 1,076 mg PO QDAY 07/03/24 Unknown History tablet Allergy/AdvReac Type Severity Reaction Status Date / Time bee venom protein (honey Allergy Severe Anaphylaxis Verified 08/13/24 06:20 bee) (bee stings) propafenone Allergy Other Verified 08/13/24 06:20 Family History Other Alcoholism Arthritis Depression High cholesterol Hypertension Liver disease Severe allergy Surgical History History of colonoscopy History of cardiac catheterization H/O cardiac radiofrequency ablation History of radiofrequency ablation procedure for cardiac arrhythmia Social History adopted: No household members: family, none and other details: sister current occupational status: unemployed Smoking Status: Current every day smoker tobacco type: cigarettes details: alcohol cessation currently substance use type: does not use diet: other well-balanced diet: other details: weight watcher diet what type of physical activity do you participate in: none seatbelt use: always do you feel safe at home: Yes ROS Constitutional Constitutional: Reports fatigue and weakness; Denies chills, fever(s) or malaise Eyes Eyes: Denies blurry vision ENT HEENT: Denies headache(s) or nasal discharge Cardiovascular Cardiovascular: Denies chest pain, dyspnea on exertion or syncope Respiratory/Chest Respiratory/Chest: Denies cough, shortness of breath at rest or shortness of breath with exertion Gastrointestinal Gastrointestinal: Denies constipation, diarrhea, nausea or vomiting Genitourinary Genitourinary: Denies dysuria Integumentary Integumentary: Reports jaundice Neurologic Neurologic: Denies focal weakness, numbness or tremor(s) Psychiatric Psychiatric: Reports auditory hallucinations; Denies anxiety or depression Physical Exam Narrative General: Alert, Oriented x3, Cooperative, No apparent distress HEENT: Atraumatic, PERRLA, EOMI, Normocephalic, scleral icterus Oral: Moist Mucosa Neck: Supple, No JVD Lungs: Clear to auscultation, Normal air movement, No rhonchi, No wheeze, No rales Cardiovascular: Regular rate, Regular Rhythm, Normal S1, Normal S2, No murmurs Abdomen: Soft, epigastric tender, mildly distended, hepatomegaly Extremities: Edema, Capillary Refill Less than 3 Seconds Skin: No rashes, No breakdown, jaundice Musculoskeletal: No Tenderness to Palpation of Joints or Extremities Neurological: No focal neurological deficits, Motor Exam 5/5 strength throughout, Sensory exam intact to light touch and pain Psych/Mental Status: Normal Affect, Appropriate Lab / Micro Data 08/13/24 06:30 08/13/24 06:30 Labs: Laboratory Results - last 24 hr 08/13/24 06:30: WBC 4.6, RBC 4.01 L, Hgb 13.0, Hct 35.5 L, MCV 88.5, MCH 32.4 H, MCHC 36.6 H, RDW Std Deviation 56.7 H, RDW Coeff of Asher 16.9 H, Plt Count 41 L*, MPV 11.6, Immature Gran % (Auto) 1.100 H, Neut % (Auto) 74.1 H, Lymph % (Auto) 9.7 L, [place] % (Auto) 13.4 H, Eos % (Auto) 1.1, Baso % (Auto) 0.6, Absolute Neuts (auto) 3.4, Absolute Lymphs (auto) 0.45 L, Nucleated RBC % 0, Platelet Estimate MKD DEC, PT 22.5 H, INR 2.0, APTT 49.0 H, Sodium 129 L, Potassium 2.5 L*, Chloride 87 L, Carbon Dioxide 27.0, Anion Gap 15, BUN 11, Creatinine 1.33 H, Estim Creat Clear Calc 69.69, Est GFR (MDRD) Af Amer 72, Est GFR (MDRD) Non-Af 59 L, BUN/Creatinine Ratio 8.3 L, Glucose 95, Calcium 8.5, Magnesium 1.2 L, Total Bilirubin 30.00 H*, AST 282 H, ALT 127 H, Alkaline Phosphatase 232 H, Ammonia 54.0 H, Troponin I High Sens 44, Total Protein 5.0 L, Albumin 2.1 L, Globulin 2.9, Albumin/Globulin Ratio 0.7 L, Lipase 355 H, Ethyl Alcohol 98.0 08/13/24 07:05: Urine Opiates Screen NEGATIVE, Urine Methadone Screen NEGATIVE, Ur Barbiturates Screen NEGATIVE, Ur Phencyclidine Scrn NEGATIVE, Ur Amphetamines Screen NEGATIVE, MDMA (Ecstasy) Screen NEGATIVE, U Benzodiazepines Scrn NEGATIVE, Urine Cocaine Screen NEGATIVE, U Cannabinoids Screen NEGATIVE, Ur Drug Screen Comment Imaging Radiology Impression Gallbladder Ultrasound 08/13/24 08:15 IMPRESSION: Heterogeneous appearance of the liver. Recanalization of the umbilical vein suggestive of a portal venous hypertension. Distended gallbladder with thickened and edematous wall of the gallbladder with pericholecystic fluid. Small solitary gallstone as well as sludge within the gallbladder lumen. Small amount of free fluid in the right upper and lower quadrants. Electronically Signed: Ambrosio Kline MD at 9:33 EDT , Abdomen/Pelvis CT 08/13/24 10:32 IMPRESSION: Small amount of ascites. Hepatomegaly and diffuse fatty infiltration of the liver. Findings suggestive of colitis of the right hemicolon. Distended gallbladder with wall thickening and solitary gallstone. Electronically Signed: Ambrosio Kline MD at 11:23 EDT , Assessment & Plan Assessment/Plan (1) Pancreatitis: (2) Thrombocytopenia: (3) Portal hypertension: (4) Hepatitis C: PLAN: 54 yo with Hepatitis C and alcoholic decompensated cirrhosis with portal hypertension with recanalization of umbilical vein and severe chronic thrombocytopenia. He has severe alcoholic hepatitis defined by Darlene score of 45. His MELD score at this time is 30. He is not a transplant candidate due to noncompliance and active addiction issues with alcohol and other substances along with his new diagnosis of atrial fibrillation with RVR. He was given Mucomyst today and methylprednisolone. I called and tried to leave a message with his sister who is living with. Guarded prognosis. Continue steroid therapy and monitoring LFTs along with MELD and Madrey score. He has a 90% mortality in the next 30 days. Some trials have shown some improvement with steroids and Pentoxifylline to improve short-term mortality within the next 28 days. Monitor CBC for increased risk of infection along with CMP for increased risk of hepatorenal syndrome due to toe tumor necrosis factor affects systemically. He would be defined by a Jil score which we will check 3 days after treatment to see if he has a positive response to steroids. If he does not then it would be efficacious to stop steroid treatment because at that time it becomes more detrimental to leave him on steroid therapy. Guarded prognosis. Charges/Coding Visit Charges Inpatient E&M: 45813 Init Hosp L3
[2024-08-13] MEDS: Metoprolol Tartrate 50 MG Tablet PO (21:00)
[2024-08-14] VITALS (11 sets, daily range): BP systolic 106–127; BP diastolic 81–99; PULSE 110–133; RESP 15–20; TEMP 36.2–36.7; O2SAT 91–95
[2024-08-14] MEDS: LORazepam 1 MG Tablet PO ×6 (00:30→20:50)
[2024-08-14] MEDS: 0.9% Normal Saline (1000mL) 1,000 ML 200 ML IV ×2 (04:35→10:09)
[2024-08-14 05:52] LABS: Absolute Neutrophil Count 3.8 X10^3/uL (2.0-7.7); Hematocrit 35.4 % (40-54); Hemoglobin 13.1 g/dL (13.0-16.5); Lymphocyte % 6.7 % (19-41); Mean Corpuscular Hgb 33.8 pg (27.0-32.0); Mean Corpuscular Volume 91.2 fL (80-94); Mean Platelet Vol. 12.3 fl (6.2-12.0); Monocyte# 0.35 X10^3/uL; Monocyte% 7.8 % (0-10); NRBC Flagged by Analyzer 0 % (0-5); Neutrophil # 3.81 X10^3/uL (2.7-7.7); Neutrophil % 85.1 % (47-70); POSITIVE COUNT YES; POSITIVE DIFFERENTIAL YES; RBC Distribution Width CV 17.8 % (11.6-14.6); RBC Distribution Width SD 58.8 fl (35.1-43.9); Red Blood Count 3.88 M/mm3 (4.6-6.2); White Blood Count 4.5 K/mm3 (4.4-11.0)
[2024-08-14 06:02] LABS: Platelet Count 34 K/mm3 (150-450)
[2024-08-14 06:03] LABS: Differential Indicated SCAN CRITERIA MET
[2024-08-14 07:02] LABS: Differential Comment SCANNED; Platelet Estimate MKD DEC (ADEQ)
[2024-08-14 07:29] LABS: ALB/GLOB Ratio 0.6 RATIO (0.9-2.4); AST(SGOT) 287 U/L (15-37); Alanine Aminotransfer ALT/SGPT 125 U/L (16-61); Albumin, Serum 1.8 g/dL (3.2-5.0); Alkaline Phosphatase 197 U/L (45-117); Anion Gap 14 (5-15); BUN 14 mg/dL (7-18); BUN/Creat Ratio 9.3 RATIO (10-20); Calcium,Total 7.7 mg/dL (8.5-10.1); Chloride 95 mmol/L (98-107); EST Glomerular Filtration Rate 52 mL/min (>60); Est Glom Filt Rate - Afr Amer 63 mL/min (>60); Estimated Creatinine Clearance 68.83 ml/min; Globulin 2.8 g/dL (2.2-4.2); Glucose 121 mg/dL (74-106); Phosphorus 3.5 mg/dL (2.5-4.9); Potassium 2.5 mmol/L (3.5-5.1); Protein, Total 4.6 g/dL (6.4-8.2); Sodium Level 133 mmol/L (136-145)
[2024-08-14] MEDS: Thiamine Hydrochloride 100 MG Tablet PO (08:13)
[2024-08-14] MEDS: Metoprolol Tartrate 50 MG Tablet PO ×2 (08:13→18:48)
[2024-08-14] MEDS: Folic Acid 1 MG Tablet PO (08:13)
--- NOTE | 2024-08-14 10:21 | NURSING ---
pt's sister called in about condition. updated and wanting to poss taking him out of ramp program so can come see him. dr acevedo aware
--- NOTE | 2024-08-14 10:48 | PCM.PN.HOSP ---
Subjective Subjective No issues overnight. Still with little bit of abdominal pain. CIWA score of 8 Objective Data Objective Data Vital Signs: Vital Signs Temp Pulse Resp BP Pulse Ox O2 Del Method 97.8 F 115 H 16 106/81 H 95 Room Air 08/14/24 08:30 08/14/24 08:30 08/14/24 08:30 08/14/24 08:30 08/14/24 08:30 08/14/24 10:00 Oxygen Delivery Method Room Air Weight: 219 lb 12.814 oz Body Mass Index (BMI) 29.7 Intake & Output: Intake and Output for Last 24 Hours 08/13/24 08/14/24 08/15/24 03:59 03:59 03:59 Intake Total 3918.80 / 3918.80 2531.62 / 2531.62 Output Total 75 / 75 Balance 3843.80 / 3843.80 2531.62 / 2531.62 Lab / Micro Data 08/14/24 05:20 08/14/24 05:20 Labs: Laboratory Results - last 24 hr 08/14/24 05:20: WBC 4.5, RBC 3.88 L, Hgb 13.1, Hct 35.4 L, MCV 91.2, MCH 33.8 H, MCHC 37.0 H, RDW Std Deviation 58.8 H, RDW Coeff of Asher 17.8 H, Plt Count 34 L*, MPV 12.3 H, Immature Gran % (Auto) 0.400, Neut % (Auto) 85.1 H, Lymph % (Auto) 6.7 L, Kings % (Auto) 7.8, Eos % (Auto) 0.0, Baso % (Auto) 0.0, Absolute Neuts (auto) 3.8, Absolute Lymphs (auto) 0.30 L, Nucleated RBC % 0, Differential Comment SCANNED, Diff Path Review May foll, Platelet Estimate MKD DEC, Sodium 133 L, Potassium 2.5 L*, Chloride 95 L, Carbon Dioxide 24.0, Anion Gap 14, BUN 14, Creatinine 1.50 H, Estim Creat Clear Calc 68.83, Est GFR (MDRD) Af Amer 63, Est GFR (MDRD) Non-Af 52 L, BUN/Creatinine Ratio 9.3 L, Glucose 121 H, Calcium 7.7 L, Phosphorus 3.5, Magnesium 2.0, Total Bilirubin 29.10 H*, AST 287 H, ALT 125 H, Alkaline Phosphatase 197 H, Total Protein 4.6 L, Albumin 1.8 L, Globulin 2.8, Albumin/Globulin Ratio 0.6 L Radiography Diagnostic Testing: Radiology Impression Abdomen/Pelvis CT 08/13/24 10:32 IMPRESSION: Small amount of ascites. Hepatomegaly and diffuse fatty infiltration of the liver. Findings suggestive of colitis of the right hemicolon. Distended gallbladder with wall thickening and solitary gallstone. Electronically Signed: Ambrosio Kline MD at 11:23 EDT , Physical Exam Narrative General: Alert, Oriented x3, Cooperative, No apparent distress HEENT: Atraumatic, PERRLA, EOMI, Normocephalic, scleral icterus Oral: Moist Mucosa Neck: Supple, No JVD Lungs: Clear to auscultation, Normal air movement, No rhonchi, No wheeze, No rales Cardiovascular: Regular rate, Regular Rhythm, Normal S1, Normal S2, No murmurs Abdomen: Soft, epigastric tender, mildly distended, hepatomegaly Extremities: Edema, Capillary Refill Less than 3 Seconds Skin: No rashes, No breakdown, jaundice Musculoskeletal: No Tenderness to Palpation of Joints or Extremities Neurological: No focal neurological deficits, Motor Exam 5/5 strength throughout, Sensory exam intact to light touch and pain Psych/Mental Status: Normal Affect, Appropriate Assessment & Plan Assessment/Plan (1) Pancreatitis: (2) Acute alcohol intoxication delirium with moderate or severe use disorder: (3) Jaundice: (4) Atrial fibrillation with RVR: PLAN: Plan 1. Alcohol withdrawal in the setting of acute severe alcoholic hepatitis and cirrhosis with thrombocytopenia and hyperammonemia with acute pancreatitis ? Synthetic function is diminished with an INR of 2, will give him a dose of vitamin K ? His MELD sodium score is 33 and his Madrey's discriminant factor is 78, mortality is around 60% at 90 days currently ? Total bilirubin is 30 and he was started on Solu-Medrol 40 mg IV 3 times daily ? Will continue with N-acetylcysteine ? Appreciate gastroenterology's assistance ? Initially were going to obtain a liver biopsy however at this institution is done CT-guided ultrasound-guided and given his severe thrombocytopenia as well as his INR of 2 risk of bleeding is is too high at the moment ? Continue with aggressive IV fluids and will continue with n.p.o. ? Continue with the alcohol withdrawal protocol with Ativan taper given his liver disease ? Continue with lactulose ? Gallbladder ultrasound does not show cholecystitis and common bile duct is 6 mm, the wall thickening and pericholecystic fluid is likely related to his severe alcoholic hepatitis 2. A-fib with RVR/chronic systolic CHF ? Will hold his amiodarone secondary to the liver and pancreatitis ? Will hold Bumex ? Recent echo on 06/15/2024 with an EF of 45% and RVSP of 46 mmHg likely also component of diastolic heart failure ? He did attempt to have a Cardizem drip in the ER however this caused significant hypotension so this was discontinued given the issues going on with his liver will treat primary causes as long as his heart rate stays below 120 ? Will hold his beta-art at the moment. DVT: SCDs Charges/Coding Visit Charges Inpatient E&M: 11676 Subs Hosp L2
[2024-08-14] MEDS: Potassium Chloride Oral Tablet 20 MEQ 60 MEQ PO (12:39)
[2024-08-14 12:43] LABS: International Normalized Ratio 2.5; Prothrombin Time (Protime)PT. 26.5 SECONDS (11.7-14.9)
[2024-08-14] MEDS: 0.9% Normal Saline (1000mL) 1,000 ML 125 ML IV (15:07)
[2024-08-14 15:50] LABS: Pathologist Review Reviewed
--- NOTE | 2024-08-14 16:31 | PN.GI_ITS ---
Subjective Subjective Patient states that he feels about the same. He has been eating. Objective Data Objective Data Vital Signs: Vital Signs Temp Pulse Resp BP Pulse Ox O2 Del Method 97.4 F L 123 H 20 H 111/87 H 94 Room Air 08/14/24 16:00 08/14/24 16:00 08/14/24 16:00 08/14/24 16:00 08/14/24 16:00 08/14/24 16:00 Oxygen Delivery Method Room Air Weight: 219 lb 12.814 oz Body Mass Index (BMI) 29.7 Intake & Output: Intake and Output for Last 24 Hours 08/12/24 08/13/24 08/14/24 23:59 23:59 23:59 Intake Total 3918.80 / 3918.80 3651.62 / 3651.62 Output Total 75 / 75 Balance 3843.80 / 3843.80 3651.62 / 3651.62 Lab / Micro Data 08/14/24 05:20 08/14/24 05:20 Labs: Laboratory Results - last 24 hr 08/14/24 05:20: WBC 4.5, RBC 3.88 L, Hgb 13.1, Hct 35.4 L, MCV 91.2, MCH 33.8 H, MCHC 37.0 H, RDW Std Deviation 58.8 H, RDW Coeff of Asher 17.8 H, Plt Count 34 L*, MPV 12.3 H, Immature Gran % (Auto) 0.400, Neut % (Auto) 85.1 H, Lymph % (Auto) 6.7 L, [place] % (Auto) 7.8, Eos % (Auto) 0.0, Baso % (Auto) 0.0, Absolute Neuts (auto) 3.8, Absolute Lymphs (auto) 0.30 L, Nucleated RBC % 0, Differential Comment SCANNED, Diff Path Review Reviewed, Platelet Estimate MKD DEC, Sodium 133 L, Potassium 2.5 L*, Chloride 95 L, Carbon Dioxide 24.0, Anion Gap 14, BUN 14, Creatinine 1.50 H, Estim Creat Clear Calc 68.83, Est GFR (MDRD) Af Amer 63, Est GFR (MDRD) Non-Af 52 L, BUN/Creatinine Ratio 9.3 L, Glucose 121 H, Calcium 7.7 L, Phosphorus 3.5, Magnesium 2.0, Total Bilirubin 29.10 H*, AST 287 H, ALT 125 H, Alkaline Phosphatase 197 H, Total Protein 4.6 L, Albumin 1.8 L, Globulin 2.8, Albumin/Globulin Ratio 0.6 L 08/14/24 12:02: PT 26.5 H, INR 2.5 Physical Exam Narrative General: Alert, Oriented x3, Cooperative, No apparent distress HEENT: Atraumatic, PERRLA, EOMI, Normocephalic, scleral icterus Oral: Moist Mucosa Neck: Supple, No JVD Lungs: Clear to auscultation, Normal air movement, No rhonchi, No wheeze, No rales Cardiovascular: Regular rate, Regular Rhythm, Normal S1, Normal S2, No murmurs Abdomen: Soft, epigastric tender, mildly distended, hepatomegaly Extremities: Edema, Capillary Refill Less than 3 Seconds Skin: No rashes, No breakdown, jaundice Musculoskeletal: No Tenderness to Palpation of Joints or Extremities Neurological: No focal neurological deficits, Motor Exam 5/5 strength throughout, Sensory exam intact to light touch and pain Psych/Mental Status: Normal Affect, Appropriate Assessment & Plan Assessment/Plan (1) Pancreatitis: (2) Thrombocytopenia: (3) Portal hypertension: (4) Hepatitis C: PLAN: 54 yo with Hepatitis C and alcoholic decompensated cirrhosis with portal hypertension with recanalization of umbilical vein and severe chronic thrombocytopenia. He has severe alcoholic hepatitis defined by Darlene score of 45. His MELD score at this time is 30. He is not a transplant candidate due to noncompliance and active addiction issues with alcohol and other substances along with his new diagnosis of atrial fibrillation with RVR. He was given Mucomyst today and methylprednisolone. I called and tried to leave a message with his sister who is living with. Guarded prognosis. Continue steroid therapy and monitoring LFTs along with MELD and Madrey score. He has a 90% mortality in the next 30 days. Some trials have shown some improvement with steroids and Pentoxifylline to improve short-term mortality within the next 28 days. Monitor CBC for increased risk of infection along with CMP for increased risk of hepatorenal syndrome due to toe tumor necrosis factor affects systemically. He would be defined by a Jil score which we will check 3 days after treatment to see if he has a positive response to steroids. If he does not then it would be efficacious to stop steroid treatment because at that time it becomes more detrimental to leave him on steroid therapy. Guarded prognosis. PLAN: Plan 08/14/2024-patient received Pentoxil filing and is currently on steroid therapy. He has a slight decrease in his bilirubin today. His mental status is still about the same. He is exhibiting between a grade 1 and grade 2 encephalopathy. Labs are about the same and regarding his electrolytes. He has not shown any signs of delirium tremens at this time. Repeat Madrey score tomorrow. Also recommended repeat ammonia level. Will start Xifaxan 550 mg p.o. twice daily continue lactulose therapy. Charges/Coding Visit Charges Inpatient E&M: 18218 Subs Hosp L3
[2024-08-15] VITALS (19 sets, daily range): BP systolic 92–127; BP diastolic 66–99; PULSE 103–150; RESP 16–24; TEMP 36.2–37.2; O2SAT 91–96
[2024-08-15] MEDS: LORazepam 1 MG Tablet PO ×2 (00:02→04:24)
[2024-08-15] MEDS: 0.9% Normal Saline (1000mL) 1,000 ML 125 ML IV ×3 (00:03→16:44)
[2024-08-15 04:11] LABS: Absolute Lymphocyte Count 0.28 X10^3/uL (0.83-4.51); Absolute Neutrophil Count 5.3 X10^3/uL (2.0-7.7); Basophil# 0.01 X10^3/uL; Basophil% 0.2 % (0-1); Hematocrit 36.3 % (40-54); Hemoglobin 13.6 g/dL (13.0-16.5); Lymphocyte # 0.28 X10^3/ul (0.83-4.51); Lymphocyte % 4.5 % (19-41); Mean Corp Hgb Conc 37.5 g/dL (32-36); Mean Corpuscular Hgb 34.3 pg (27.0-32.0); Mean Corpuscular Volume 91.4 fL (80-94); Mean Platelet Vol. 12.4 fl (6.2-12.0); Monocyte# 0.53 X10^3/uL; Monocyte% 8.5 % (0-10); NRBC Flagged by Analyzer 0.6 % (0-5); Neutrophil # 5.34 X10^3/uL (2.7-7.7); POSITIVE COUNT YES; POSITIVE DIFFERENTIAL YES; RBC Distribution Width SD 59.8 fl (35.1-43.9); Red Blood Count 3.97 M/mm3 (4.6-6.2); White Blood Count 6.2 K/mm3 (4.4-11.0)
[2024-08-15 04:13] LABS: Differential Indicated SCAN CRITERIA MET; Platelet Count 43 K/mm3 (150-450)
[2024-08-15 04:18] LABS: International Normalized Ratio 2.3; Prothrombin Time (Protime)PT. 25.1 SECONDS (11.7-14.9)
[2024-08-15 04:58] LABS: ALB/GLOB Ratio 0.7 RATIO (0.9-2.4); AST(SGOT) 281 U/L (15-37); Alanine Aminotransfer ALT/SGPT 134 U/L (16-61); Alkaline Phosphatase 199 U/L (45-117); Anion Gap 8 (5-15); BUN 25 mg/dL (7-18); BUN/Creat Ratio 16.2 RATIO (10-20); Calcium,Total 7.5 mg/dL (8.5-10.1); Chloride 102 mmol/L (98-107); Creatinine, Serum 1.54 mg/dL (0.70-1.30); EST Glomerular Filtration Rate 50 mL/min (>60); Est Glom Filt Rate - Afr Amer 61 mL/min (>60); Estimated Creatinine Clearance 67.04 ml/min; Globulin 2.8 g/dL (2.2-4.2); Glucose 125 mg/dL (74-106); Potassium 2.8 mmol/L (3.5-5.1); Protein, Total 4.8 g/dL (6.4-8.2); Sodium Level 135 mmol/L (136-145)
[2024-08-15] MEDS: Potassium Chloride Oral Tablet 20 MEQ 60 MEQ PO (06:14)
[2024-08-15 06:37] LABS: Differential Comment SCANNED; Platelet Estimate MKD DEC (ADEQ)
--- NOTE | 2024-08-15 07:28 | PN.HOSP_ITS ---
Reason for Visit Reason for Visit: Diagnoses Unspecified viral hepatitis C without hepatic coma (08/13/24) Thrombocytopenia, unspecified (08/13/24) Alcohol dependence with intoxication delirium (08/13/24) Unspecified atrial fibrillation (08/13/24) Portal hypertension (08/13/24) Acute pancreatitis without necrosis or infection, unspecified (08/13/24) Unspecified jaundice (08/13/24) Objective Data Objective Data Vital Signs: Vital Signs Temp Pulse Resp BP Pulse Ox O2 Del Method 98.4 F 125 H 20 H 127/92 H 94 Room Air 08/15/24 04:00 08/15/24 04:00 08/15/24 04:00 08/15/24 04:00 08/15/24 04:00 08/15/24 04:00 Oxygen Delivery Method Room Air Weight: 99.7 kg Body Mass Index (BMI) 29.7 Intake & Output: Intake and Output for Last 24 Hours 08/13/24 08/14/24 08/15/24 23:59 23:59 23:59 Intake Total 3918.80 / 3918.80 4771.62 / 4771.62 Output Total 75 / 75 0 / 0 Balance 3843.80 / 3843.80 4771.62 / 4771.62 0 / 0 Lab / Micro Data 08/15/24 04:00 08/15/24 04:00 Labs: Laboratory Results - last 24 hr 08/14/24 05:20: Diff Path Review Reviewed, Sodium 133 L, Potassium 2.5 L*, C hloride 95 L, Carbon Dioxide 24.0, Anion Gap 14, BUN 14, Creatinine 1.50 H, Estim Creat Clear Calc 68.83, Est GFR (MDRD) Af Amer 63, Est GFR (MDRD) Non-Af 52 L, BUN/Creatinine Ratio 9.3 L, Glucose 121 H, Calcium 7.7 L, Phosphorus 3.5, Magnesium 2.0, Total Bilirubin 29.10 H*, AST 287 H, ALT 125 H, Alkaline Phosphatase 197 H, Total Protein 4.6 L, Albumin 1.8 L, Globulin 2.8, A lbumin/Globulin Ratio 0.6 L 08/14/24 12:02: PT 26.5 H, INR 2.5 08/15/24 04:00: WBC 6.2, RBC 3.97 L, Hgb 13.6, Hct 36.3 L, MCV 91.4, MCH 34.3 H, MCHC 37.5 H, RDW Std Deviation 59.8 H, RDW Coeff of Asher 18.0 H, Plt Count 43 L*, MPV 12.4 H, Immature Gran % (Auto) 0.800, Neut % (Auto) 86.0 H, Lymph % (Auto) 4.5 L, [place] % (Auto) 8.5, Eos % (Auto) 0.0, Baso % (Auto) 0.2, Absolute Neuts (auto) 5.3, Absolute Lymphs (auto) 0.28 L, Nucleated RBC % 0.6, Differential Comment SCANNED, Diff Path Review February, Platelet Estimate MKD SEP, PT 25.1 H , INR 2.3, Sodium 135 L, Potassium 2.8 L, Chloride 102, Carbon Dioxide 25.0, Anion Gap 8, BUN 25 H, Creatinine 1.54 H, Estim Creat Clear Calc 67.04, Est GFR (MDRD) Af Amer 61, Est GFR (MDRD) Non-Af 50 L, BUN/Creatinine Ratio 16.2, G lucose 125 H, Calcium 7.5 L, Total Bilirubin 32.40 H*, AST 281 H, ALT 134 H, A lkaline Phosphatase 199 H, Total Protein 4.8 L, Albumin 2.0 L, Globulin 2.8, A lbumin/Globulin Ratio 0.7 L Physical Exam Narrative GENERAL: lethargic responds to sternal HEENT: Atraumatic; normocephalic EYES; icteric, Normal Conjunctiva NECK; supple, normal thyroid, RESPIRATORY: Diminished to auscultation CARDIOVASCULAR: Regular S1-S2 GI: soft, normoactive bowel sounds, : No Renal angle tenderness; EXTREMITIES: No edema, no clubbing, MUSCULOSKELETAL: no muscle wasting NEURO: no lateralizing signs. SKIN: Jaundiced PSYCH; lethargic Assessment & Plan Assessment/Plan (1) Pancreatitis: (2) Acute alcohol intoxication delirium with moderate or severe use disorder: (3) Jaundice: (4) Atrial fibrillation with RVR: PLAN: Plan Patient is a 54-year-old gentleman with history of chronic alcohol dependence presented with abdominal swelling and jaundiced 1. Acute alcohol withdrawal -Patient managed with lorazepam as needed 2. Severe alcoholic hepatitis ? Patient was found to have INR of 2 MELD sodium score is 33 and his Madrey's discriminant factor is 78, mortality is around 60% at 90 days patient seen in consultation by GI recommendation is for patient to treated with methylprednisolone. Did receive N-acetylcysteine 3. Acute alcoholic pancreatitis ? Managed conservatively 4.Thrombocytopenia ?secondary to patient cirrhosis of the liver as well as chronic alcohol use monitoring with daily CBC with differential. No indication for platelet transfusion at this point 5. Paroxysmal A-fib ? Patient was on amiodarone held given impaired liver function and pancreatitis. Patient patient was on rate controlling agent with Cardizem held given low blood pressure. Was started on metoprolol however could not tolerate oral intake necessitating patient being treated with metoprolol 5 mg every 6 hours. Patient is already a candidate for systemic anticoagulation given his significant liver disease with elevated INR and thrombocytopenia 6. Chronic congestive heart failure with reduced ejection fraction cho on 06/15/2024 with an EF of 45% 7. Tobacco dependence - Counseled on cessation, offered nicotine patch for tobacco cravings 8. DVT prophylaxis ? Chemoprophylaxis contraindicated given patient low platelet count Time spent in the patient's overall evaluation,decision-making process, review of diagnostic data, adjustment of management, discussion with other providers, nursing nursing and ancillary staff involved in patient's care documentation,50 Minutes Advance planning; did discuss with the patient's POA?consistent regarding advanced directives as well as CODE STATUS. Did explain the various scenarios involved ( FULL CODE, DNR CCA, DNR CCA with no intubation, and DNR CC and what each meant) CODE STATUS was changed to DNR CCA no intubation. Order was placed. Time spent on discussion 16 minutes. Charges/Coding Multi Select Codes Visit Charges Visit Charges: 71536 Init Hosp L3 Hospitalists' Procedures Procedures: 20320 Advncd Care Plan 30 Min
[2024-08-15] MEDS: Metoprolol Tartrate 5 MG/5 ML Vial IV ×2 (13:06→18:30)
--- NOTE | 2024-08-15 13:22 | CASEMGMT ---
RN CM Assessment Face to Face with patient for initial transition planning/care coordination assessment. Pt is currently disoriented and obtunded and unable to answer this RN CM questions for assessment. Pt NOK (Sister - Belkis) at bedside and willing to help answer this RN CM questions for assessment. Care providers, pharmacy, and demographics verified. Admitting dx: ETOH, Pancreatitis PCP: Demi Matamoros Specialists: Denies Preferred Pharmacy:[facility] Insurance: AARP MCR ADV Prescription Benefit: Yes LNOK: Belkis Chester (SIS), Lalo Chester (JUSTINE) Living Arrangements: Pt lives alone in a single level condo with one step to enter ADLs/IADLs: Ind at Baseline Transportation: Self at baseline, sister DME: CPAP at HS. Pt sister states that she is unsure if the pt uses this or not. Access to a [facility] HHC/SNF: Feli states that the pt had HHC in 2020 in [place]. Denies SNF History Plan: TBD. Dr. Ly states that the pt has a poor prognosis. Anticipate Hospice vs SNF vs LTACH. If pt goes Hospice, pt sister states that she would prefer the pt to go to her home for this. CM and SW to continue to follow. Jerson Scott RN, CM
[2024-08-15 15:42] LABS: Potassium 3.5 mmol/L (3.5-5.1)
--- NOTE | 2024-08-15 16:36 | EKG12_ITS ---
Test Reason : Blood Pressure : / mmHG Vent. Rate : 114 BPM Atrial Rate : 000 BPM P-R Int : 000 ms QRS Dur : 102 ms QT Int : 408 ms P-R-T Axes : 000 007 125 degrees QTc Int : 562 ms Critical Test Result: Long QTc Atrial fibrillation with rapid ventricular response Low voltage QRS T wave abnormality, consider anterior ischemia Prolonged QT Abnormal ECG No previous ECGs available Confirmed by SERGIO WANG, ROWAN ([id number]), telegraph editor DELANEY HOPSON ([id number]) on 08/17/2024 2:22:52 PM Referred By: Confirmed By:ROWAN HILL MD
[2024-08-15] MEDS: dilTIAZem 25 MG/5 ML Vial 20 MG IV BOLUS (17:34)
[2024-08-15] MEDS: 0.9% Saline Lock 10 ML Syringe IV ×2 (21:57→23:52)
[2024-08-15 22:37] LABS: Bedside Glucose 126 mg/dL (74-106)
[2024-08-15] MEDS: Digoxin 250 MCG/ML Ampul IV (23:51)
[2024-08-16] VITALS: BP 100/80; PULSE 137; RESP 20; TEMP 36.6; O2SAT 96
[2024-08-16] MEDS: Phenobarbital Sodium 65 MG/ML Vial 100 MG IV ×4 (00:27→11:30)
[2024-08-16 01:00] VITALS: BP 113/88; PULSE 135; RESP 18; O2SAT 96
--- NOTE | 2024-08-16 02:08 | NURSING ---
Pt sister () notified that rapid response team has been initiated. Chema possibly having seizure activity. Physician responding to bedside. Family welcome to come in.
[2024-08-16 02:12] VITALS: PULSE 166
[2024-08-16] MEDS: Digoxin 250 MCG/ML Ampul IV (02:12)
--- NOTE | 2024-08-16 02:15 | NURSING ---
Pt sister () notified at this time that pt is very unwell and it is recommended that she come to hospital at this time.
[2024-08-16] MEDS: levETIRAcetam IV 1,000 MG/100 ML BAG 400 MG IV (02:18)
[2024-08-16] MEDS: LORazepam 2 MG/ML Syringe 4 MG IV ×2 (02:19→02:25)
[2024-08-16] MEDS: LORazepam 2 MG/ML Syringe 1 MG IV (02:22)
[2024-08-16] MEDS: Amiodarone 150 MG in Dextrose 5%-Water (100mL Bag) 100 ML 412 MG IV BOLUS (02:28)
[2024-08-16 02:32] LABS: Bedside Glucose 119 mg/dL (74-106)
[2024-08-16 02:34] LABS: Base Excess -7 mmol/L (-2 to +2); Bicarbonate 17.9 mmol/L (22-26); Blood Gas Specimen Type ART; Mode Not entered; O2 Delivery Device Cannula; PO2 99 mmHG (75-100); SITE R Radial; SO2 98 % (95-99); Total Carbon Dioxide 19 mmol/L; pCO2 29.8 mmHg (35-45); pH 7.39 (7.35-7.45)
--- NOTE | 2024-08-16 02:35 | NURSING ---
Sister came in speaking with MD decision made to make patient a DNR-CC
--- NOTE | 2024-08-16 02:38 | NURSING ---
Dr Urena at bedside for CAPITAL EQUIPMENT SPECIALIST-at bedside see orders, at bedside when IV ativan orders were given.
[2024-08-16] MEDS: LORazepam 2 MG/ML Syringe 6 MG IV (02:42)
[2024-08-16] MEDS: 0.9% Saline Lock 10 ML Syringe IV ×2 (02:47→04:17)
[2024-08-16] MEDS: HYDROmorphone 1 MG/ML Syringe 2 MG IV (02:51)
[2024-08-16 03:09] LABS: Absolute Lymphocyte Count 0.36 X10^3/uL (0.83-4.51); Absolute Neutrophil Count 1.5 X10^3/uL (2.0-7.7); Basophil# 0.03 X10^3/uL; Basophil% 1.2 % (0-1); Eosinophil# 0.23 X10^3/uL; Eosinophils% 9.4 % (0-5); Hematocrit 42.6 % (40-54); Hemoglobin 15.4 g/dL (13.0-16.5); Lymphocyte # 0.36 X10^3/ul (0.83-4.51); Lymphocyte % 14.7 % (19-41); Mean Corp Hgb Conc 36.2 g/dL (32-36); Mean Corpuscular Hgb 34.7 pg (27.0-32.0); Mean Corpuscular Volume 95.9 fL (80-94); Mean Platelet Vol. 12.7 fl (6.2-12.0); Monocyte# 0.25 X10^3/uL; Monocyte% 10.2 % (0-10); NRBC Flagged by Analyzer 6.1 % (0-5); Neutrophil # 1.54 X10^3/uL (2.7-7.7); Neutrophil % 62.9 % (47-70); POSITIVE COUNT YES; POSITIVE DIFFERENTIAL YES; POSITIVE MORPHOLOGY YES; Platelet Count 55 K/mm3 (150-450); RBC Distribution Width CV 19.2 % (11.6-14.6); RBC Distribution Width SD 66.6 fl (35.1-43.9); Red Blood Count 4.44 M/mm3 (4.6-6.2); White Blood Count 2.5 K/mm3 (4.4-11.0)
[2024-08-16 03:12] LABS: Differential Indicated SCAN CRITERIA MET
[2024-08-16 03:15] LABS: Lactic Acid 6.2 mmol/L (0.4-1.9)
--- NOTE | 2024-08-16 03:17 | PN.HOSP_ITS ---
Hospitalist Note Rapid Response was called overhead at ~2:07 AM. I arrived at the bedside to find patient severely jaundiced, obtunded and having a seizure with his director of content marketing revealing AFIB with RVR @ ~170 bpm. He was immediately treated with IV Ativan 2 mg and IV Keppra 1g without subsequent improvement so he was given multiple doses of IV Ativan with seizure persisting ~30 minutes indicative of suspected status epilepticus. He was also given a second dose of IV Digoxin for his AFIB with RVR that transiently decreased into the ~150 bpm range before settling around ~160 bpm. His sister had been warned by the [place] [facility] that he may not make it through the night due to his severe illness and downward spiraling clinical course so she was called to come in and she was informed that he had reached the point of medical futility as we had done everything we could and now he would benefit from being placed on hospice with a DNR-HOUSEKEEPER CAREGIVER status. Thankfully, she agreed and seemed to take the news about her brother emotionally but gracefully. I then spent additional time answering their questions and communicating with the MAP COMPILER's about this change in his care plan. He was then treated with Dilaudid 2 mg IV once and appeared more comfortable with his family encouraged to go to the bedside to support the patient in his time of need.
[2024-08-16 03:39] LABS: ALB/GLOB Ratio 0.6 RATIO (0.9-2.4); AST(SGOT) 242 U/L (15-37); Alanine Aminotransfer ALT/SGPT 141 U/L (16-61); Albumin, Serum 2.1 g/dL (3.2-5.0); Alkaline Phosphatase 217 U/L (45-117); Anion Gap 11 (5-15); BUN 34 mg/dL (7-18); BUN/Creat Ratio 17.1 RATIO (10-20); Calcium,Total 7.6 mg/dL (8.5-10.1); Chloride 107 mmol/L (98-107); Creatinine, Serum 1.99 mg/dL (0.70-1.30); EST Glomerular Filtration Rate 37 mL/min (>60); Est Glom Filt Rate - Afr Amer 45 mL/min (>60); Estimated Creatinine Clearance 51.88 ml/min; Globulin 3.4 g/dL (2.2-4.2); Glucose 99 mg/dL (74-106); Magnesium 2.2 mg/dL (1.6-2.6); Phosphorus 2.1 mg/dL (2.5-4.9); Potassium 3.4 mmol/L (3.5-5.1); Protein, Total 5.5 g/dL (6.4-8.2); Sodium Level 139 mmol/L (136-145)
[2024-08-16 04:38] LABS: Anisocytosis 1+; Atypical Lymphocyte 1+ %; Differential Comment SCANNED; Platelet Estimate MOD DEC (ADEQ)
[2024-08-16 04:39] LABS: Stomatocyte 1+; Target Cells 1+
[2024-08-16 06:46] LABS: Reflex Lactate? Y
--- NOTE | 2024-08-16 07:44 | PCM.PN.HOSP ---
Reason for Visit Reason for Visit: Diagnoses Unspecified viral hepatitis C without hepatic coma (08/13/24) Thrombocytopenia, unspecified (08/13/24) Alcohol dependence with intoxication delirium (08/13/24) Unspecified atrial fibrillation (08/13/24) Portal hypertension (08/13/24) Acute pancreatitis without necrosis or infection, unspecified (08/13/24) Unspecified jaundice (08/13/24) Subjective Subjective Patient clinical condition continued to deteriorate. Patient had multiple seizures during the night aborted with Ativan as well as Keppra. Went into A-fib with RVR was given beta-blockers as well as Cardizem without much improvement. Discussions were held with patient's family decision was made to change CODE STATUS to DNR CC and initiate hospice consultation subsequently placed Objective Data Objective Data Vital Signs: Vital Signs Temp Pulse Resp BP Pulse Ox O2 Del Method O2 Flow Rate 97.8 F 166 H 18 113/88 H 96 Non-Rebreather 2 08/16/24 00:00 08/16/24 02:12 08/16/24 01:00 08/16/24 01:00 08/16/24 01:00 08/16/24 07:30 08/16/24 01:00 Oxygen Flow Rate (L/min) 2 Oxygen Delivery Method Non-Rebreather Weight: 99.7 kg Body Mass Index (BMI) 29.7 Intake & Output: Intake and Output for Last 24 Hours 08/14/24 08/15/24 08/16/24 23:59 23:59 23:59 Intake Total 4771.62 / 4771.62 2904.17 / 2904.17 203 / 203 Output Total 0 / 0 Balance 4771.62 / 4771.62 2904.17 / 2904.17 203 / 203 Lab / Micro Data 08/16/24 02:27 08/16/24 02:27 Labs: Laboratory Results - last 24 hr 08/15/24 14:30: Potassium 3.5 08/15/24 22:06: POC Glucose 126 H 08/16/24 02:09: POC Glucose 119 H 08/16/24 02:27: WBC 2.5 L, RBC 4.44 L, Hgb 15.4, Hct 42.6, MCV 95.9 H, MCH 34.7 H, MCHC 36.2 H, RDW Std Deviation 66.6 H, RDW Coeff of Asher 19.2 H, Plt Count 55 L, MPV 12.7 H, Immature Gran % (Auto) 1.600 H, Neut % (Auto) 62.9, Lymph % (Auto) 14.7 L, [place] % (Auto) 10.2 H, Eos % (Auto) 9.4 H, Baso % (Auto) 1.2 H, Absolute Neuts (auto) 1.5 L, Absolute Lymphs (auto) 0.36 L, Nucleated RBC % 6.1 H, Differential Comment SCANNED, Diff Path Review May foll, Atypical Lymphocytes 1+, Platelet Estimate MOD DEC, Anisocytosis 1+, Target Cells 1+, Stomatocytes 1+, Sodium 139, Potassium 3.4 L, Chloride 107, Carbon Dioxide 21.0, Anion Gap 11, BUN 34 H, Creatinine 1.99 H, Estim Creat Clear Calc 51.88, Est GFR (MDRD) Af Amer 45 L, Est GFR (MDRD) Non-Af 37 L, BUN/Creatinine Ratio 17.1, Glucose 99, Lactic Acid 6.2 H*, Calcium 7.6 L, Phosphorus 2.1 L, Magnesium 2.2, Total Bilirubin 38.90 H*, AST 242 H, ALT 141 H, Alkaline Phosphatase 217 H, Total Protein 5.5 L, Albumin 2.1 L, Globulin 3.4, Albumin/Globulin Ratio 0.6 L ABG Data ABG results: ABG 08/16/24 02:30 Specimen Type ART Sample Site R Radial pH 7.39 Bicarbonate Actual 17.9 L Total CO2 19 Base Excess -7 L O2 Saturation 98 O2 % 6.0 ABG pCO2 29.8 L ABG pO2 99 Denny Test N/A O2 Delivery Device Cannula Vent Mode Not entered Physical Exam Narrative GENERAL: lethargic responds to sternal HEENT: Atraumatic; normocephalic EYES; icteric, Normal Conjunctiva NECK; supple, normal thyroid, RESPIRATORY: Diminished to auscultation CARDIOVASCULAR: Regular S1-S2 GI: soft, normoactive bowel sounds, : No Renal angle tenderness; EXTREMITIES: No edema, no clubbing, MUSCULOSKELETAL: no muscle wasting NEURO: no lateralizing signs. SKIN: Jaundiced PSYCH; lethargic Assessment & Plan Assessment/Plan (1) Pancreatitis: (2) Acute alcohol intoxication delirium with moderate or severe use disorder: (3) Jaundice: (4) Atrial fibrillation with RVR: PLAN: Plan Patient is a 54-year-old gentleman with history of chronic alcohol dependence presented with abdominal swelling and jaundiced 1. Acute alcohol withdrawal -Patient managed with lorazepam as needed -08/16/2024;Patient clinical condition continued to deteriorate. Went into A-fib with RVR was given beta-blockers as well as Cardizem without much improvement. Discussions were held with patient's family decision was made to change CODE STATUS to DNR CC and initiate hospice consultation subsequently placed 2. Severe alcoholic hepatitis ? Patient was found to have INR of 2 MELD sodium score is 33 and his Madrey's discriminant factor is 78, mortality is around 60% at 90 days patient seen in consultation by GI recommendation is for patient to treated with methylprednisolone. Did receive N-acetylcysteine 3. Acute alcoholic pancreatitis ? Managed conservatively 4.Thrombocytopenia ?secondary to patient cirrhosis of the liver as well as chronic alcohol use monitoring with daily CBC with differential. No indication for platelet transfusion at this point 5. Paroxysmal A-fib ? Patient was on amiodarone held given impaired liver function and pancreatitis. Patient patient was on rate controlling agent with Cardizem held given low blood pressure. Was started on metoprolol however could not tolerate oral intake necessitating patient being treated with metoprolol 5 mg every 6 hours. Patient is already a candidate for systemic anticoagulation given his significant liver disease with elevated INR and thrombocytopenia 6. Chronic congestive heart failure with reduced ejection fraction cho on 06/15/2024 with an EF of 45% 7. Tobacco dependence - Counseled on cessation, offered nicotine patch for tobacco cravings 8. DVT prophylaxis ? Chemoprophylaxis contraindicated given patient low platelet count #9. Alcohol withdrawal seizure ? Patient did receive Ativan as well as Keppra. After which patient CODE STATUS was changed to DNR CC. Time spent in the patient's overall evaluation,decision-making process, review of diagnostic data, adjustment of management, discussion with other providers, nursing nursing and ancillary staff involved in patient's care documentation, 50 Minutes Charges/Coding Visit Charges Inpatient E&M: 96654 [facility] Hosp L3
--- NOTE | 2024-08-16 09:35 | DS.PCM_ITS ---
Providers Date of Admission: 08/13/24 Date of Discharge: 08/16/24 Primary Care Physician: Demi Matamoros, JO ANN Consultations 08/13/24 12:04 Consult: Gastroenterology Routine Consulting Provider: [facility] Reason for Consult: MELD of 33 and Maddrey of 78 EMERGENT Consult: No Notified: Yes Date Notified: 08/13/24 Time Notified: 13:56 Method of Notification: Text 08/16/24 03:43 Consult: Hospice / Palliative Care Routine Consulting Provider: [facility] Reason for Consult: End-[facility]-Life Care. EMERGENT Consult: No Notified: Yes Date Notified: 08/16/24 Time Notified: 08:25 Method of Notification: Answering Service Reason For Visit: ETOH, PANCREATITIS Diagnosis Discharge Diagnosis (1) Pancreatitis: Status: Acute Code(s): K85.90 - Acute pancreatitis without necrosis or infection, unspecified (2) Acute alcohol intoxication delirium with moderate or severe use disorder: Status: Acute Code(s): F10.221 - Alcohol dependence with intoxication delirium (3) Jaundice: Status: Acute Code(s): R17 - Unspecified jaundice (4) Atrial fibrillation with RVR: Status: Acute Code(s): I48.91 - Unspecified atrial fibrillation Plan Patient is a 54-year-old gentleman with history of chronic alcohol dependence presented with abdominal swelling and jaundiced 1. Acute alcohol withdrawal -Patient managed with lorazepam as needed -08/16/2024;Patient clinical condition continued to deteriorate. Went into A- fib with RVR was given beta-blockers as well as Cardizem without much improvement. Discussions were held with patient's family decision was made to change CODE STATUS to DNR CC and initiate hospice consultation subsequently placed 2. Severe alcoholic hepatitis ? Patient was found to have INR of 2 MELD sodium score is 33 and his Madrey's discriminant factor is 78, mortality is around 60% at 90 days patient seen in consultation by GI recommendation is for patient to treated with methylprednisolone. Did receive N-acetylcysteine 3. Acute alcoholic pancreatitis ? Managed conservatively 4.Thrombocytopenia ?secondary to patient cirrhosis of the liver as well as chronic alcohol use monitoring with daily CBC with differential. No indication for platelet transfusion at this point 5. Paroxysmal A-fib ? Patient was on amiodarone held given impaired liver function and pancreatitis. Patient patient was on rate controlling agent with Cardizem held given low blood pressure. Was started on metoprolol however could not tolerate oral intake necessitating patient being treated with metoprolol 5 mg every 6 hours. Patient is already a candidate for systemic anticoagulation given his significant liver disease with elevated INR and thrombocytopenia 6. Chronic congestive heart failure with reduced ejection fraction cho on 06/15/2024 with an EF of 45% 7. Tobacco dependence - Counseled on cessation, offered nicotine patch for tobacco cravings 8. DVT prophylaxis ? Chemoprophylaxis contraindicated given patient low platelet count #9. Alcohol withdrawal seizure ? Patient did receive Ativan as well as Keppra. After which patient CODE STATUS was changed to DNR CC. Decision was made to stop patient active treatment after CODE STATUS was changed to DNR CC. Palliative care/symptom management measures initiated hospice team consulted plan is for patient to be discharged to the inpatient hospice facility Time spent in the patient's overall evaluation,decision-making process, review of diagnostic data, adjustment of management, discussion with other providers, nursing nursing and ancillary staff involved in patient's care documentation, 50 Minutes Physical Exam Narrative GENERAL: lethargic responds to sternal HEENT: Atraumatic; normocephalic EYES; icteric, Normal Conjunctiva NECK; supple, normal thyroid, RESPIRATORY: Diminished to auscultation CARDIOVASCULAR: Regular S1-S2 GI: soft, normoactive bowel sounds, : No Renal angle tenderness; EXTREMITIES: No edema, no clubbing, MUSCULOSKELETAL: no muscle wasting NEURO: no lateralizing signs. SKIN: Jaundiced PSYCH; lethargic Weight / BMI Weight Weight: 99.7 kg Body Mass Index (BMI) 29.7 ABG / Lab / Microbiology Data 08/16/24 02:27 08/16/24 02:27 Laboratory: Laboratory Results - last 24 hr 08/15/24 14:30: Potassium 3.5 08/15/24 22:06: POC Glucose 126 H 08/16/24 02:09: POC Glucose 119 H 08/16/24 02:27: WBC 2.5 L, RBC 4.44 L, Hgb 15.4, Hct 42.6, MCV 95.9 H, MCH 34.7 H, MCHC 36.2 H, RDW Std Deviation 66.6 H, RDW Coeff of Asher 19.2 H, Plt Count 55 L, MPV 12.7 H, Immature Gran % (Auto) 1.600 H, Neut % (Auto) 62.9, Lymph % (Auto) 14.7 L, [place] % (Auto) 10.2 H, Eos % (Auto) 9.4 H, Baso % (Auto) 1.2 H, A bsolute Neuts (auto) 1.5 L, Absolute Lymphs (auto) 0.36 L, Nucleated RBC % 6.1 H , Differential Comment SCANNED, Diff Path Review May foll, Atypical Lymphocytes 1+, Platelet Estimate MOD DEC, Anisocytosis 1+, Target Cells 1+, Stomatocytes 1+, Sodium 139, Potassium 3.4 L, Chloride 107, Carbon Dioxide 21.0, Anion Gap 11, BUN 34 H, Creatinine 1.99 H, Estim Creat Clear Calc 51.88, Est GFR (MDRD) Af Amer 45 L, Est GFR (MDRD) Non-Af 37 L, BUN/Creatinine Ratio 17.1, Glucose 99, L actic Acid 6.2 H*, Calcium 7.6 L, Phosphorus 2.1 L, Magnesium 2.2, Total Bilirubin 38.90 H*, AST 242 H, ALT 141 H, Alkaline Phosphatase 217 H, Total Protein 5.5 L, Albumin 2.1 L, Globulin 3.4, Albumin/Globulin Ratio 0.6 L ABG: ABG 08/16/24 02:30 Specimen Type ART Sample Site R Radial pH 7.39 Bicarbonate Actual 17.9 L Total CO2 19 Base Excess -7 L O2 Saturation 98 O2 % 6.0 ABG pCO2 29.8 L ABG pO2 99 Denny Test N/A O2 Delivery Device Cannula Vent Mode Not entered D/C Instructions Discharge Diet: No restrictions Meaningful Use Info Meaningful Use Meaningful Use Diagnoses (Choose all that apply): None applicable Ischemic Stroke Statin Dosing Therapy Reference: STATIN DOSE THERAPY REFERENCE: * Patients > 75 years receive moderate or high dose statin therapy. * Patients 75 years or YOUNGER should receive HIGH intensity statin dose unless contraindicated. You will be required to document reason for non-treatment if statin daily dose does not meet guidelines. HIGH DOSE STATIN THERAPY DAILY Atorvastatin > than or = to 40 mg Rosuvastatin > than or = to 20 mg Amlodipine + Atorvastatin > than or = to 2.5/40 mg Ezetimibe + Simvastatin 10/80 mg Simvastatin 80mg Discharge Plan Admission Admit Date/Time: 08/13/24 08:32 Attending Provider: Nato Ly Primary Care Provider: Demi Matamoros Consulting Providers: Pato Villanueva; Nato Gutierrez; Pat Dickson; Mallory Brito; Fabby Leigh; Aminah Sanders HOSPITAL ADMITTING CLERK; Shey Randolph Discharge Orders/Prescriptions Prescriptions: Discontinued bumetanide 1 mg tablet 1 mg PO DAILY PRN (Reason: edema) Rx Instructions: for leg swelling omega-3 fatty acids 1,000 mg capsule 1,000 mg PO BID potassium chloride 10 mEq tablet extended release 10 meq PO QDAY L-Glutamine 500 mg capsule 500 mg PO BID turmeric root extract 1,053 mg tablet 1,076 mg PO QDAY metoprolol tartrate 50 mg tablet 50 mg PO Q12 90 Days Qty: 180 3RF amiodarone 200 mg tablet 200 mg PO DAILY Qty: 90 3RF folic acid 1 mg tablet 1 mg PO DAILY Qty: 90 2RF ferrous sulfate [Feosol] 325 mg (65 mg iron) tablet 325 mg PO DAILY naltrexone 50 mg tablet 50 mg PO QDAY multivitamin Tablet 1 tab PO DAILY Qty: 30 0RF Rx Instructions: [id number]. No prescription required. aspirin [Ecotrin Low Strength] 81 mg tablet,delayed release (DR/EC) 81 mg PO DAILY Qty: 90 0RF lactulose 20 gram/30 mL solution 20 g PO TID PRN (Reason: constipation/ high ammonia) Qty: 1200 0RF Rx Instructions: decrease ammonia levels alpha lipoic acid 600 mg capsule 600 mg PO BID Qty: 180 0RF vitamin B complex Tablet 1 tab PO DAILY Qty: 30 0RF Referrals / Follow Up: Demi Matamoros NP-C [Primary Care Provider] - Disposition Disposition (needs filled in before D/C Order can be placed): Hospice in Medical Facility Charges/Coding Visit Charges Inpatient E&M: 67684 Disch Hosp >30min
[2024-08-16 10:48] LABS: Phosphorus 2.4 mg/dL (2.5-4.9)
--- NOTE | 2024-08-16 12:08 | EXP.PCM_ITS ---
Preliminary Cause of Preliminary Cause of Preliminary Cause of : Cirrhosis of the liver Alcoholic hepatitis Date of Admission: 08/13/24 Date of : 08/16/24 Principle Diagnosis Cirrhosis of the liver Alcoholic hepatitis Acute pancreatitis Problem List: Active and Suspected Problems (Updated 08/13/24 @ 08:53 by Boris Torres MD) Pancreatitis (Acute) Hypokalemia (Acute) Acute alcohol intoxication delirium with moderate or severe use disorder (Acute) Desire for detoxification (Acute) Jaundice (Acute) Atrial fibrillation with RVR (Acute) Thrombocytopenia (Acute) Hospital Course Patient is a 54-year-old gentleman with history of chronic alcohol dependence presented with abdominal swelling and jaundiced. Patient was diagnosed with severe alcoholic pancreatitis, alcoholic hepatitis as well as acute alcohol withdrawal. Patient was admitted to a monitored bed. Hospital stay complicated by paroxysmal atrial fibrillation. Patient was found to have INR of 2 MELD sodium score is 33 and his Madrey's discriminant factor is 78, mortality is around 60% at 90 days. Patient was treated with methylprednisolone N- acetylcysteine. Patient also did experience status epilepticus as a result of his alcohol withdrawal. His clinical condition continued to worsen despite aggressive treatment. Discussions were held with family decision was made to change patient CODE STATUS first to DNR CCA and subsequently to DNR CC. Palliative care comfort care and symptom management initiated. Plan was for patient to have been transferred to an inpatient hospice facility however he was found with heart tones and without spontaneous breathing on 08/16/2024 at 1158. He was pronounced . Visit Charges Inpatient E&M: [id number] Disch Hosp
--- NOTE | 2024-08-16 12:39 | NURSING ---
Family called out that patient had stopped breathing. This RN and charge attendant listened for heart/lung sounds. Time of 1158, notified, family at bedside.
[2024-08-17 14:18] LABS: Pathologist Review Reviewed
[2024-08-17 14:20] LABS: Pathologist Review Reviewed
== END 2024-08-16 11:58 | DRG 439 ==
LOC: ED 08:54 → PCU 11:16
PROVIDERS: Internal Medicine; Admitting Provider Family Medicine; Emergency Provider Emergency Medicine; PCP Nurse Practitioner; Visit Provider Internal Medicine
DX: K85.20 Alcohol induced acute pancreatitis without necrosis or infection (principal); F10.231 Alcohol dependence with withdrawal delirium; K76.6 Portal hypertension; I50.22 Chronic systolic (congestive) heart failure; K72.90 Hepatic failure, unspecified without coma; Z66 Do not resuscitate; D69.6 Thrombocytopenia, unspecified; I48.0 Paroxysmal atrial fibrillation; K70.10 Alcoholic hepatitis without ascites; K70.30 Alcoholic cirrhosis of liver without ascites; F17.210 Nicotine dependence, cigarettes, uncomplicated; Z86.718 Personal history of other venous thrombosis and embolism; Y90.4 Blood alcohol level of 80-99 mg/100 ml
CPT/HCPCS: 36415; 36600; 74177; 76705; 80053; 80307; 82077; 82140; 82803; 82962; 83605; 83690; 83735; 84100; 84132; 84484; 85025; 85610; 85730; 93005; 99283; J7030; J7040; Q9967; A4216; J3490